=== PATIENT | female | born 1960 | race Hispanic/Latino ===

== ENCOUNTER 2017-07-03 17:14 | Emergency (ER) | payer BC ==
[~2017-07-03] VITALS: Ht 152.4 cm; Wt 64.4 kg
--- OUTSIDE RECORDS SUMMARY | ~2017-07-03 | XMS | Clinical Summary ---
Demographics + + + | Address | [address] | | | [place] [address] | + + + | Home Phone | | + + + | Preferred Language | Unknown | + + + | Marital Status | | + + + | Adventist Affiliation | CAT | + + + [...] | + + + + + | MOOK VERNON | [place] | [place] | | + + + + + Care Team Providers + +------+ + | Care Site Administrator Name | Role | Phone | + +------+ + PP | Unavailable | + +------+ + Source Comments PAIGE is fully live on both [facility] and [facility] InPatient.[facility] Allergies No Known Allergies Current Medications + + +-------+---------+------+------+-------+ | Prescription | Sig. | Disp. | Refills | Star | End | Statu | | | | | | t | Date | s | | | | | | Date | | | + + +-------+---------+------+------+-------+ | OMEPRAZOLE 20 mg | Take 1 Cap by mouth | | | 04/3 | | Activ | | Oral capsule,delayed | two times daily. | | | 0/20 | | e | | release(/EC) | | | | 13 | | | + + +-------+---------+------+------+-------+ | | Take 1 Tab by mouth | | | | | Activ | | diphenhydrAMINE-acet | as needed. | | | | | e | | aminophen (TYLENOL | | | | | | | | PM EXTRA STRENGTH) | | | | | | | | 25-500 mg Oral | | | | | | | | tablet | | | | | | | + + +-------+---------+------+------+-------+ | ZINC ORAL | Take 1 Tab by mouth | | | | | Activ | | | once daily. | | | | | e | + + +-------+---------+------+------+-------+ Active Problems + + + | Problem [...] + +---------+ + | Alcohol Use | Drinks/We | oz/Week | Comments | | | ek | | | + + +---------+ + | Yes | | | rare beer | + + +---------+ + + + + | Sex Assigned at | Date Recorded | | | | + + + | Not on file | | + + + Last Filed Vital Signs + + + + | Vital Sign | Reading | Time Taken | + + + + | Blood Pressure | 132/81 | 11/23/2012 9:00 AM PDT | + + + + | Pulse | 60 | 11/23/2012 9:00 AM PDT | + + + + | Temperature | 36.4 C (97.5 F) | 11/23/2012 8:17 AM PDT | + + + + | Respiratory Rate | 16 | 11/23/2012 9:00 AM PDT | + + + + | Oxygen Saturation | 97% | 11/23/2012 9:00 AM PDT | + + + + | Inhaled Oxygen | - | - | | Concentration | | | + + + + | Weight | 67.1 kg (147 lb 14.9 | 11/23/2012 7:00 AM PDT | | | oz) | | + + + + | Height | 152.4 cm (5') | 11/23/2012 7:00 AM PDT | + + + + | Body Mass Index | 28.89 | 11/23/2012 7:00 AM PDT | + + + + Plan of Treatment + + + + + | Health Maintenance | Due Date | Last Done | Comments | + + + + + | INFLUENZA VACCINE | | | | | (FLU SHOT) | 7 | | | + + + + + Results Not on filefrom Last 3 Months"
--- OUTSIDE RECORDS SUMMARY | ~2017-07-03 | XMS | Clinical Summary ---
Demographics + + + | Address | [address] | | | [place] [address] | + + + | Home Phone [...] Team Providers + +------+ + | Care Refinery Operator Name | Role | Phone | + +------+ + PP | Unavailable | + +------+ + Source Comments PAIGE is fully live on both [facility] and [facility] InPatient.[facility] Allergies No Known Allergies Current Medications + [...]
[~2017-07-03 17:14] MED LIST: CLARITIN10 MG PO; DOXYCYCLINE HY100 MG PO; NORCO 10-325 T1 EACH PO
== END 2017-07-03 21:54 | disposition home or self-care (01) ==
LOC: ED 17:14
DX: Z47.89 Encounter for other orthopedic aftercare (principal); Z91.048 Other nonmedicinal substance allergy status; Z88.8 Allergy status to other drugs, medicaments and biological substances
CPT/HCPCS: 73630; 99283

== ENCOUNTER 2019-05-23 13:00 | Day surgery (SDC) | payer BC, MEDICARE ==
[~2019-05-23] VITALS: Ht 152.4 cm; Wt 62.6 kg
[2019-05-23] MEDS ORDERED: LORAZEPAM2 MG PO (13:30)
--- NOTE | 2019-05-23 15:08 | NUR ---
05/23/19 1508 Thelma Tejeda 1458 PT ARRIVED IN PACU SLEEPY WITH NO C/O'S. ABD SOFT AND PASSING FLATUS. 1500 OXYGEN REMOVED. SATS 98% ON RA.
--- NOTE | 2019-05-24 13:17 | OR ---
[facility] [address] [place], [place] [address] Signed DATE OF OPERATION: 05/23/2019 SURGEON: Milena Burgos MD PREOPERATIVE DIAGNOSES: 1. Left-sided abdominal pain, weight loss, bloating. 2. Previous colonoscopy in 2018, elsewhere, unknown findings. POSTOPERATIVE DIAGNOSES: 1. Sigmoid diverticulosis. 2. Giant villous polypoid lesion of right transverse colon. PROCEDURE PERFORMED: Total colonoscopy to cecum with complex resection including mucosal lift technique, Endo Johnny tattoo application, and hemoclip application of right transverse colonic villous lesion. ANESTHESIA: Intravenous sedation, fentanyl 150 mcg, Versed 8 mg. INDICATION: This 58-year-old woman is well known to me from the past. In recent times, she has had left lower abdominal pain as well as weight loss, generalized bloating, and clinical symptoms of diverticular disease. It is recalled she has undergone hemorrhoidectomy in the past, but has no anorectal problems currently. Her last colonoscopy was in 2018 elsewhere. She cannot remember the place or the findings particularly. She is admitted at this time to undergo colonoscopy to better characterize the problem understanding the risks of bleeding, infection, and perforation. FINDINGS: The prep was excellent. Complete colonoscopy was undertaken to the cecum without question. She had diverticula of the sigmoid. Notably in the right transverse colon, was a very large villous appearing bulky polypoid lesion. Initially it was thought unlikely to be resectable, though with great effort, time, and care, it was excised with morcellation technique using hot snare polypectomy technique, mucosal lift technique, Endo Johnny tattoo dye, and ultimately application of hemoclips to the site. It appears to be completely resected. DESCRIPTION OF PROCEDURE: Electronically Signed By: MILENA BURGOS MD 05/24/19 1317 PATIENT NAME: HUMPHREY COLON OPERATIVE REPORT DATE OF : 62 REPORT #: [id number] PHYSICIAN: MILENA BURGOS MD PCP: ELAINA LYNCH MD REPORT IS CONFIDENTIAL AND NOT TO BE RELEASED WITHOUT AUTHORIZATION [facility] [address] [place], [place] [address] Signed The patient was brought to the endoscopy suite and placed in lateral decubitus position, given intravenous sedation to the point of slurred speech and nystagmus with full cardiopulmonary monitoring. Digital rectal examination was normal. An Olympus video colonoscope was passed in the rectum and manipulated throughout the colon noting diverticula of the sigmoid and left colon. A rather bulky villous appearing polyp was noted at the right transverse colon and was set aside at that time and the scope advanced ultimately to the cecum. Ileocecal valve and appendiceal orifice were normal. Scope was withdrawn documenting the area of location of the polypoid lesion to be the right transverse colon. An endoscopic mucosal lift technique was deemed advisable with possible to allow for complete polypectomy. Injection to the base of the polyp was obscured by the large bulky polyp itself. On that basis, tattoo application was undertaken slightly proximal to the lesion origin itself. A four-quadrant injection was undertaken. Using hot snare polypectomy technique, the lesion was found too bulky to allow for a good complete encirclement with the snare. On that basis, multiple snare polypectomies were undertaken of the lesion carefully excising. At one point, the snare was rather stuck and with various manipulations, finally was worked free. This included the limited use of cutting current and a snare polypectomy. Shards of the bulky villous lesion were sequentially shaved off ultimately leaving a relatively small mucosal area. There was no obvious perforation or anything of that sort. The area in question was triply clipped closing mucosa. Attention was turned towards recovery of the polypoid material. A Berman Net was used and several passes undertaken to fully gather all of the polypoid material. I would say the lesion would measure at least 4 to 5 cm in aggregate. Scope was then withdrawn. Careful inspection to remaining colon showed no sign of other abnormality other than the diverticula. Scope was removed and the patient was taken to recovery room in good condition. CONCLUDING DIAGNOSES: 1. Very large right transverse colonic villous bulky lesion. Await Pathology. 2. Diverticular changes, sigmoid. PLAN: Needs repeat colonoscopy in 6 to 12 months provided, there is no malignancy identified in the lesion excised. There is an extended right colectomy would likely be appropriate. Electronically Signed By: MILENA BURGOS MD 05/24/19 1317 PATIENT NAME: HUMPHREY COLON OPERATIVE REPORT DATE OF : 62 REPORT #: [id number] PHYSICIAN: MILENA BURGOS MD PCP: ELAINA LYNCH MD REPORT IS CONFIDENTIAL AND NOT TO BE RELEASED WITHOUT AUTHORIZATION [facility] [address] [place] [address] Signed Milena Burgos MD JM/MODL /[id number] cc: Elaina Lynch MD Copies: ELAINA LYNCH MD ~ Electronically Signed By: MILENA BURGOS MD 05/24/19 1317 PATIENT NAME: MALVIN HUMPHREY VERNON OPERATIVE REPORT DATE OF : 62 REPORT #: [id number] PHYSICIAN: MILENA BURGOS MD PCP: ELAINA LYNCH MD REPORT IS CONFIDENTIAL AND NOT TO BE RELEASED WITHOUT AUTHORIZATION
--- NOTE | 2019-05-24 16:00 | PATH ---
[facility] [address] [place], [place] [address] Signed SPECIMEN(S): A ASCENDING, TRANSVERSE POLYPS SPECIMEN SOURCE: A. ASCENDING, TRANSVERSE POLYPS CLINICAL HISTORY: LLQ abdominal pain, constipation. Postop DX: Giant polyp right transverse colon, diverticulosis. MICROSCOPIC DESCRIPTION: Histologic sections of all submitted blocks are examined by light microscopy. These findings, together with the gross examination, support the pathologic diagnosis. 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 - Negative for invasive carcinoma. - See Comment. COMMENT: As part of [facility] Quality Improvement Program, this case was reviewed by another member of our pathology staff. NAL:AMB:emb:C2NR GROSS DESCRIPTION: The specimen, labeled "RV, ascending and transverse colon polyps," is received in formalin and consists of two cornejo-pink bosselated and polypoid nodules measuring 1.7 cm and 1.9 x 1.7 x 1.4 cm. Separate in the container there is a 2.7 x 2.3 x 0.6 cm aggregate of cornejo-pink polypoid nodules. The two large nodules are inked and sectioned. Specimen is entirely submitted in cassettes (A1-A3). AM (under the direct supervision of a pathologist) The Gross Description was prepared using a voice recognition system. The report was reviewed for accuracy; however, sound-alike word errors, addition and/or deletions may occur. If there is any question about this report, please contact Client Services. PERFORMING LABORATORY: The technical component was performed by [facility], [address] [place] [address] (Studio Engineer: Leidy Vázquez MD; CLIA# [id number]). Professional interpretation was performed by PATIENT NAME: HUMPHREY COLON PATHOLOGY DATE OF : 62 REPORT #: [id number] PHYSICIAN: [facility] PCP: ELAINA WALL MD REPORT IS CONFIDENTIAL AND NOT TO BE RELEASED WITHOUT AUTHORIZATION [facility] [address] [place], [place] [address] Signed [facility], [facility], [address] [facility] [address], [place] [address] (Studio Engineer: Richard León MD; CLIA# [id number]). Diagnostician: Alessia Davis MD Pathologist Electronically Signed 05/24/2019 Copies: ~ PATIENT NAME: HUMPHREY COLON PATHOLOGY DATE OF : 62 REPORT #: [id number] PHYSICIAN: [facility] PCP: ELAINA WALL MD REPORT IS CONFIDENTIAL AND NOT TO BE RELEASED WITHOUT AUTHORIZATION
== END 2019-05-23 15:53 | disposition home or self-care (01) ==
LOC: OPS 13:00 → DS 14:00 → OPS 14:00
PROVIDERS: Surgery
PROC: 3E0H8GC Introduction of Other Therapeutic Substance into Lower GI, Via Natural or Artificial Opening Endoscopic (ICD-10-PCS; 2019-05-23)
PROC: 0DBL8ZZ Excision of Transverse Colon, Via Natural or Artificial Opening Endoscopic (ICD-10-PCS; principal; 2019-05-23 14:00)
DX: D12.3 Benign neoplasm of transverse colon (principal); K57.30 Diverticulosis of large intestine without perforation or abscess without bleeding; K21.9 Gastro-esophageal reflux disease without esophagitis; Z79.899 Other long term (current) drug therapy; Z98.890 Other specified postprocedural states; Z86.59 Personal history of other mental and behavioral disorders
CPT/HCPCS: 99153; G0500; J2250; J3010; J7121

== ENCOUNTER 2019-10-27 11:54 | Emergency (ER) | payer BC, MEDICARE ==
[~2019-10-27] VITALS: Ht 152.4 cm; Wt 62.6 kg
--- OUTSIDE RECORDS SUMMARY | ~2019-10-27 | XMS | Encounter Summary ---
Demographics + + + | Address | [address] | | | [place] [address] | + + + | Home Phone | | + + + | Preferred Language | Unknown | + + + | Marital Status | | + + + | Confucianist Affiliation | CAT | + + + | Race | White | + + + | Ethnic Group | or | + + + Author + + + | Author | [facility] | + + + | Organization | [facility] | + + + | Address | Unknown | + + + | Phone | Unavailable | + + + Support + + + + + | Name | Relationship | Address | Phone | + + + + + | Golden Malone | [place] | [place] | | + + + + + Care Team Providers + +------+ + | Care Inspector And Unloader Name | Role | Phone | + +------+ + | George Lynch MD | PCP | | + +------+ + Encounter Details +--------+ + + + + | Date | Type | Department | Care Team | Description | +--------+ + + + + | 11/22/ | Orders Only | Preoperative | [facility] | | | 2012 | | [facility] at | J, SENIOR C [employer] DEVELOPER | | | | | [facility] | | | | | | [address] | | | | [address] | | | | | | Mailcode: [id number] | | | | | | [address] | | | | | | [address] [place], [place] | | | | | | [address] | | | | | | [phone] | | | +--------+ + + + + Social History + +-------+ +--------+------+ | Tobacco Use | Types | Packs/Day | Years | Date | | | | | Used | | + +-------+ +--------+------+ | Never Smoker | | | | | + +-------+ +--------+------+ + +---+---+---+ | Smokeless Tobacco: | | | | | Never Used | | | | + +---+---+---+ + + +---------+ + | Alcohol Use | Drinks/Week | oz/Week | Comments | + + +---------+ + | Yes | | | rare beer | + + +---------+ + + + + | Sex Assigned at | Date Recorded | | | | + + + | Not on file | | + + + + + + + | Job Start Date | Occupation | Industry | + + + + | Not on file | Not on file | Not on file | + + + + + + + + | Travel History | Travel Start | Travel End | + + + + + + | No recent travel history available. | + + documented as of this encounter Plan of Treatment +--------+---------+ + + + | Date | Type | Specialty | Care Team | Description | +--------+---------+ + + + | 12/29/ | Office | Ophthalmology | Martha Savage MD | | | 2019 | Visit | | [address] | | | | | | [place], | | | | | | [place] [address] | | | | | | [phone] | | | | | | | | +--------+---------+ + + + documented as of this encounter Visit Diagnoses Not on filedocumented in this encounter"
--- OUTSIDE RECORDS SUMMARY | ~2019-10-27 | XMS | Encounter Summary ---
Demographics + + + | Address | [address] [place] | | | [place] [address] | + + + | Home Phone | | + + + | Preferred Language | Unknown | + + + | Marital Status | | + + + | Caodaism Affiliation | 1041 | + + + | Race | Unknown | + + + | Ethnic Group | Unknown | + + + Author + + + | Author | [facility] | | | and [place] | + + + | Organization | [facility] | | | and [place] | + + + | Address | Unknown | + + + | Phone | Unavailable | + + + Support + + +---------+ + | Name | Relationship | Address | Phone | + + +---------+ + | Golden Malone | [place] | Unknown | | + + +---------+ + Care Team Providers + +------+ + | Care Elementary Spanish Teacher Name | Role | Phone | + +------+ + | George Lynch | PCP | | | MD | | | + +------+ + Reason for Visit + +--------+ + | Reason | Onset | Comments | | | Date | | + +--------+ + | Medication Reaction | 01/08/ | | | | 2015 | | + +--------+ + Encounter Details +--------+ + + + + | Date | Type | Department | Care Team | Description | +--------+ + + + + | 01/08/ | Telephone | [facility] | Denis Cee | Medication Reaction | | 2015 | | [address]RY [address] | | | | [address] [place], [place] | | | | | [place], [place] | [address] | | | | | [address] | | | | | | [phone] | | | +--------+ + + + + Social History + +-------+ +--------+------+ | Tobacco Use | Types | Packs/Day | Years | Date | | | | | Used | | + +-------+ +--------+------+ | Never Smoker | | | | | + +-------+ +--------+------+ + + +---------+ + | Alcohol Use | Drinks/Week | oz/Week | Comments | + + +---------+ + | Yes | 0 Standard drinks | 0.0 | OCCASIONALLY | | | or equivalent | | | + + +---------+ + + + + | Sex Assigned at | Date Recorded | | | | + + + | Not on file | | + + + documented as of this encounter Miscellaneous Notes Telephone Encounter - Hollie Gibson CMA - 01/10/2016 11:27 AM PDTPatient informed of Benjamín Cee's message. She reports that she will get in touch with her PCP and have lab wo rk done. She decided to discontinue taking the Cymbalta as of yesterday until she can find o ut for certain that the hair loss is not related. elephone Encounter - Denis Cee MD - 01/09/2016 3:1 1 PM PDTI did a little research and hair falling out is not a significant side effect of Cym kalie and the cases that were reported were after weeks of use. More commonly thinning hair can be a side effect of low thyroid or other issues. I recommend she discuss this further with her PCP when she talks to him about other labs. She can decide whether or not she want s to continue taking the medication at this time. elephone Ricarda Puente CMA - 01/09/2016 12:00 PM PDTCalled patient to discuss medication reaction and image results. Patient states since taking the Cymbalta her body pain has reduced but she has noticed she is losing an abnormal amount of hair. Patient also complains of being tired all the time and not wanting to leave her home. Patient continues to have headaches and is wanting to know if there are any other medicatio n options. She has an EMG scheduled for 01/13 and a follow up with PCP to discuss labs on 01/24. Please advise. elephone Ricarda Vaughn CMA - 01/09/2016 11:58 AM PDT Result Note MRI of the cervical spine was reviewed and looks great actually. There are no signific ant disc protrusions, no evidence of nerve root impingement or central canal stenosis at any level. It doesn't appear that her symptoms are coming from any structural abnormality or ne urologic compromise stemming from the neck and no injections or surgery are warranted. I still feel that nearly all of her symptoms are due to fibromyalgia but I think it woul d be warranted to rule out other possibilities just so we don't miss anything. I recommend that she talk with her PCP about a rheumatologic work-up with at least CRP, ESR and CPK if not already done. NICOLAS and Rheumatoid factor might also be worth checking. I don't have a lot of her lab data and don't want to repeat studies unnecessarily if they have already bee n done. I had also previously recommended EMG testing of at least the right upper extremity and if she wants to do that I can refer her to Dr. Shukla. elephone Encounter - W Kath tejeda - 01/09/2016 11:48 AM PDTPatient reports that she feels like DULoxetine (CYMBA LTA) [address] capsule is making her hair fall out. She would like a call back to discuss fur ther. documented in this enc ounter Plan of Treatment Not on filedocumented as of this encounter Visit Diagnoses Not on filedocumented in this encounter"
--- OUTSIDE RECORDS SUMMARY | ~2019-10-27 | XMS | Encounter Summary ---
Demographics + + + | Address | [address] | | | [place] [address] | + + + | Home Phone | | + + + | Preferred Language | Unknown | + + + | Marital Status | | + + + | Church Affiliation | 1041 | + + + | Race | Unknown | + + + | Ethnic Group | Unknown | + + + Author + + + | Author | [facility] | | | and [place] | + + + | Organization | [facility] | | | and [place] | [...] Team Providers + +------+ + | Care Carbon Dioxide Operator Name | Role | Phone | + +------+ + | George Lynch | PCP | | | MD | | | + +------+ + Reason for Visit +--------+--------+ + | Reason | Onset | Comments | | | Date | | +--------+--------+ + | Other | 01/15/ | pain and fever | | | 2015 | | +--------+--------+ + Encounter Details +--------+ + + + + | Date | Type | Department | Care Team | Description | +--------+ + + + + | 01/15/ | Telephone | [facility] | George Shukla, | Other (pain and | | 2015 | | [address]SIATRY [address] | fever) | | | | [address] | [address] | | | | | [facility] [facility] [place] | [place] [address] | | | | | [address] | [phone] | | | | | [phone] | | | +--------+ + + + [...] Telephone Encounter - Hollie Gibson CMA - 01/16/2016 4:10 PM PDTLeft voicemail echoecho e with Dr. Beltrán;;'s message for this patient. She was informed that if she has any further questions she is welcome to contact me.Electronically signed by Hollie Gibson CMA at 4:13 PM PDTTelephone Encounter - George Shukla MD - 01/16/2016 3:01 PM PDTI only did NCS so there is no way the fever is related to the study. And NCS has been done f or 60+ years and is safe, with no risk for nerve damage. Please call patient and advise.Amy ctronically signed by George Shukla MD at 01/16/2016 3:03 PM PDTTelephone Encounter - Hollie Gibson CMA - 01/16/2016 11:27 AM PDTDr. Shukla- please advise. I think it like ly just a coincidence but wanted to get your opinion. elephone Encounter - Elma Quinones - 01/16/2016 9:23 A M PDTPatient called stating that she's been having a lot of right arm pain and high fevers. Patient would like to know if her fever and arm pain is related to her EMG/NCS or was caused by the procedure. Please advise documented in this encounter Plan of Treatment Not on filedocumented as of this encounter Visit Diagnoses Not on filedocumented in this encounter"
--- OUTSIDE RECORDS SUMMARY | ~2019-10-27 | XMS | Encounter Summary ---
Demographics + + + | Address | [address] | | | [place] [address] | + + + | Home Phone | | + + + | Preferred Language | Unknown | + + + | Marital Status | | + + + | Faith Affiliation | CAT | + + + | Race | White | + + + | Ethnic Group | or | + + + Author + + + | Organization | Unknown | + + + | Address | Unknown | + + + | Phone | Unavailable | + + + Support + + + + + | Name | Relationship | Address | Phone | + + + + + | Golden Malone | [place] | [place] | | + + + + + Care Team Providers + +------+ + | Care Hat And Cap Drying Room Attendant Name | Role | Phone | + +------+ + PCP | Unavailable | + +------+ + Encounter Details +--------+ + + + + | Date | Type | Department | Care Team | Description | +--------+ + + + + | 02/20/ | Office | | Note, Outpatient | Progress Note | | 2002 | Visit-Trans | | Clinic | | | | cribed | | | | +--------+ + + + + Social History + +-------+ +--------+------+ | Tobacco Use | Types | Packs/Day | Years | Date | | | | | Used | | + +-------+ +--------+------+ | Never Assessed | | | | | + +-------+ +--------+------+ + + + | Sex Assigned at [...] + + documented as of this encounter Progress Notes Interface, Video Game Technician In - 10/16/2005 3:01 AM PDTClinic Date: 02/20/2003 Clinic: Subjective: Mrs. Malone is a 42-year-old woman who has a long history of repeated infections in the right ear since childhood. She was noted to have perforated tympanic membrane and about 10 years ago had repair. Postoperatively, she did have a hole in the eardrum which was treated mainly with drops in attempts to close the perforation. Over the course of past year, she has noted increased discharge. She eventually saw Dr. Camarillo who treated with ear drops but had burning insider her ear and down her throat including going out into external pinna which was felt to be allergic reaction. She had several antibiotic drops, the names of which she does not know which all gave the same sort of response. She has noted that the drainage on some occasions has had some odor and has been slight intermittent. She has had no dizziness but some slight unsteadiness. No vertigo. Tinnitus has been a problem at night, particularly if she lies on the right side, and she has some pain and itching in that ear. Past History: Positive for repeated infections as a child, but she denies head injury. She has had some noise exposure at work of 90 to 100 decibels, but she wears earplugs and/or earmuff. She has no family history of ear disease. Her past medical history is positive for stomach ulcer which she has had off and on for 3 years. She has also had some mild left chest pain and pulmonary pain. She has had no history of cardiac problems. No high blood pressure. No cancer, diabetes, or hepatitis. She denies any pulmonary problems or other stomach disorder other than mentioned. No urologic or neurologic disease. Medications: Aspirin 2 as necessary, perhaps once a day. Disease in the Family: Kidney and liver disease with high blood pressure and diabetes. Previous Surgeries: Appendectomy in 1983 and tympanoplasty in 1992. Allergies: EARDROPS, MULTIPLE. Food Allergies: None. Pollen Allergies: None. Habits: She lives with her family. She currently is not working. She takes 4 to 6 aspirin a week. She does not smoke, approximately 2 beers a week, coffee 1 cup every other day. Physical Examination General: A delightful woman in no acute distress. HEENT: Ears: The right tympanic membrane has a granulation area on the posterior tympanic portion of the drum. Remainder of the drum is mobile, and there is no perforation which is noted. This granulation area is approximately 1 to 2 mm. The left ear appears to be normal. Nose is clear without obstruction in either side. Mouth: Teeth are in excellent repair although she is missing molars on both the right and the left, particularly on the right. There is good moisture. Palate and tongue movement is normal. Neck: No unusual adenopathy. Thyroid in not enlarged. Musculoskeletal: She has marked improvement of her joint tenderness with only her jaw on the right side and with pressure over the area. This is also noted by intraoral palpation of spasm of the pterygoid musculature on the right side. Neruologic: Cranial nerves 2 through 12 are intact and normal. The area of the granulation tissue was examined under the microscope and aspirated. Diagnostic Studies: Her audiogram today shows a very mild hearing loss with an SRT of 10 on that side. Impression: It is my present thought that she does have a granulation tissue on the drum which formed the little polypoid tissue. She may have actually had a slit in the tympanic membrane which does not appear to be present now. She has 100% discrimination at 15 decibels SRT. I have started her on boric acid powder which she will use once a week for the next 6 weeks. She will be rechecked in 2 months. I did not plan to use drops on her. I do not feel that she is a necessary surgical candidate at this particular time. Oracio Carson M.D. [facility] / [id number] / [id number] / [id number] / Tdocumented in this encounter Plan of Treatment +--------+---------+ + + + | Date | Type | Specialty | Care Team | Description | +--------+---------+ + + + | 12/29/ | Office | Ophthalmology | Martha Savage MD | | | 2019 | Visit | | [address] | | | | | | [place], | | | | | | [place] [address] | | | | | | [phone] | | | | | | | | +--------+---------+ + + + documented as of this encounter Visit Diagnoses Not on filedocumented in this encounter"
--- OUTSIDE RECORDS SUMMARY | ~2019-10-27 | XMS | Encounter Summary ---
Demographics + + + | Address | [address] | | | [place] [address] | + + + | Home Phone | | + + + | Preferred Language | Unknown | + + + | Marital Status | | + + + | Lutheran Affiliation | 1041 | + + + | Race | Unknown | + + + | Ethnic Group | Unknown | + + + Author + + + | Author | [facility] | | | and [place] | + + + | Organization | [facility] | | | and [place]ana | [...] Team Providers + +------+ + | Care Switchboard Clerk Name | Role | Phone | + +------+ + | George Lynch | PCP | | | MD | | | + +------+ + Encounter Details +--------+ + + + + | Date | Type | Department | Care Team | Description | +--------+ + + + + | 09/25/ | Abstract | [facility] | Ricarda Roberts CMA | | | 2015 | | PHYSIATRY [address] | | | | | | [address] | | | | | | [place] | | | | | | [address] | | | | | | [phone] | | | +--------+ + + + [...] documented as of this encounter Progress Notes Ricarda [place], FOOD ASSEMBLER KITCHEN - 09/26/2015 8:16 AM PDTREVIEW OF SYSTEMS GENERALLY: No fever, + night sweats, no anemia, + fatigue, no recent profound weight ferrer ges. EYES: + eye problems,+ use of corrective lenses, no eye injury, no double vision, no blind ness. EARS, NOSE, AND THROAT: No changes in taste or smell, + hearing difficulty, + ringing in t he ears,+ ear drainage, no dizziness, no voice changes, no difficulty swallowing, no signifi cant snoring, no sleep apnea, + sinus problems, + major dental work. NEUROLOGICALLY: Please see the review of systems discussed above in the history of present illness. In addition, the patient has + numbness/pain of arms, + numbness/pain of legs, + a wake with numbness/pain, +weakness, + muscle aching, + coordination difficulty, + change in walk, + back injury, + pain in neck, + pain in back, + headaches, + memory loss, + confusio n. PSYCHIATRIC: + depression, + sleep disorders, + anxiety, no bipolar disorder, no psychoti c episodes. CARDIOVASCULAR: No heart attacks, no heart murmur, no heart fluttering, no chest pain, no ankle swelling. LUNG DISEASE: No shortness of breath, no cough, no tuberculosis, no bloody cough, no asth ma, no emphysema/COPD. GASTROINTESTINAL: No bowel disease, no nausea or vomiting, no rectal bleeding, no constipa tion, no stool incontinence, no liver disease, no gallbladder disease, no abdominal pain, no ulcers. KIDNEY DISEASE: No urinary frequency, no painful or difficult urination, no incontinence. ENDOCRINE: No diabetes, no thyroid disease, no osteopenia or osteoporosis, no breast drain age. SKIN: No breast lumps, no skin changes, no rashes, no itches. HEMATOLOGIC/LYMPHATIC: No enlarged lymph nodes, no easy or unusual bleeding, no personal h istory of cancer. RHEUMATOLOGIC: No joint arthritis, no rheumatoid arthritis. documented in this enco unter Plan of Treatment Not on filedocumented as of this encounter Visit Diagnoses Not on filedocumented in this encounter"
--- OUTSIDE RECORDS SUMMARY | ~2019-10-27 | XMS | Encounter Summary ---
Demographics + + + | Address | [address] [place] [address] | | | [place] [address] | + + + | Home Phone | | + + + | Preferred Language | Unknown | + + + | Marital Status | | + + + | Taoist Affiliation | 1041 | + + + | Race | Unknown | + + + | Ethnic Group | Unknown | + + + Author + + + | Author | [facility] | | | and [place] | + + + | Organization | [facility] | | | and Geovannyana [...] Team Providers + +------+ + | Care Screen Printing Machine Operator Name | Role | Phone | + +------+ + | George Lynch | PCP | | | MD | | | + +------+ + Encounter Details +--------+ + + + + | Date | Type | Department | Care Team | Description | +--------+ + + + + | 11/12/ | [facility] | [facility] | Bro[place], | Neck pain | | 2016 | Encounter | MED CTR XRAY [address] | [address] | | | | | [address] | [facility] [address] | | | | | [place] [address] | [place] [address] | | | | | [phone] | [phone] | | | | | | | | +--------+ + + [...] + + documented as of this encounter Medications at Time of Discharge + + + +---------+ + + | Medication | Sig | Dispensed | Refills | Start | End Date | | | | | | Date | | + + + +---------+ + + | acetaminophen | Take 325 mg by mouth | | 0 | 01/16/20 | | | (TYLENOL) 325 mg | as needed. | | | 12 | | | tablet | | | | | | + + + +---------+ + + | tolnaftate | Apply topically 2 | | 0 | | | | (TINACTIN) 1% cream | times daily. | | | | | + + + +---------+ + + | aspirin 325 mg | Take 325 mg by mouth | | 0 | 01/16/20 | | | tablet | as needed. | | | 12 | 8 | + + + +---------+ + + | gabapentin | 1 tab PO nightly x 5 | 120 | 2 | 09/26/19 | | | (NEURONTIN) 300 mg | days, then increase | capsule | | 16 | 6 | | capsule | to 1 tab PO BID x 5 | | | | | | | days. If continue | | | | | | | to tolerate well, | | | | | | | increase to 1 tab PO | | | | | | | TID. | | | | | + + + +---------+ + + documented as of this encounter Plan of Treatment Not on filedocumented as of this encounter Procedures + +--------+ + + + | Procedure Name | Priori | Date/Time | Associated Diagnosis | Comments | | | ty | | | | + +--------+ + + + | XR CERVICAL SPINE 4 | Routin | 11/13/2015 | Neck pain | Results for this | | OR 5 VWS | e | 11:59 AM | | procedure are in the | | | | PDT | | results section. | + +--------+ + + + documented in this encounter Results XR Cervical Spine 4 or 5 Vws (11/13/2015 11:59 AM PDT) + + | Specimen | + + | | + + + + + | Narrative | Performed At | + + + | CERVICAL SPINE: 11/13/2015 11:59 AM CLINICAL HISTORY: neck pain | [facility] | | COMPARISON: None FINDINGS: Upright AP, lateral and lateral | [facility] | | flexion-extension views of the cervical spine. Cervical spine is | [facility] | | imaged to C7-T1. Vertebral body heights are normally maintained. Disc | - IMAGING | | interspaces appear normal. Small focus of soft tissue calcification | | | is seen anterior to the C6-C7 disc interspace. Alignment is normal | | | at C1-C2. Facet joints are normally aligned. Overall normal sagittal | | | alignment. No loss of alignment in flexion or extension. No | | | adjacent soft tissue abnormalities. IMPRESSION - Small focus of | | | soft tissue calcification anterior to the C6-C7 disc interspace which | | | may indicate early disc disease. Otherwise normal radiographic | | | appearance of the cervical spine. No radiographic demonstration of | | | instability. Dictated and Signed by: Donovan Martinez MD | | | Electronically signed: 11/13/2015 1:54 PM | | + + + + + | Procedure Note | + + | Ricki Alford Results In - 11/13/2015 1:57 PM PDT CERVICAL SPINE: 11/13/2015 11:59 AM | | | | CLINICAL HISTORY: neck pain | | | | COMPARISON: None | | | | FINDINGS: Upright AP, lateral and lateral flexion-extension views of the | | cervical spine. | | | | Cervical spine is imaged to C7-T1. Vertebral body heights are normally | | maintained. Disc interspaces appear normal. Small focus of soft tissue | | calcification is seen anterior to the C6-C7 disc interspace. | | | | Alignment is normal at C1-C2. Facet joints are normally aligned. Overall normal | | sagittal alignment. No loss of alignment in flexion or extension. | | | | No adjacent soft tissue abnormalities. | | | | IMPRESSION - Small focus of soft tissue calcification anterior to the C6-C7 disc | | interspace which may indicate early disc disease. Otherwise normal radiographic | | appearance of the cervical spine. No radiographic demonstration of instability. | | | | Dictated and Signed by: Donovan Martinez MD | | Electronically signed: 11/13/2015 1:54 PM | + + + + + + + | Performing | Address | City/State/Zipcode | Phone Number | | Organization | | | | + + + + + | [address] | [address] | [place] | [phone] | | [facility] | | [address] | | | - IMAGING | | | | + + + + + documented in this encounter Visit Diagnoses + + | Diagnosis | + + | Neck pain Cervicalgia | + + documented in this encounter"
--- OUTSIDE RECORDS SUMMARY | ~2019-10-27 | XMS | Clinical Summary ---
Demographics + + + | Address | [address] | | | [place] [address] | + + + | Home Phone | | + + + | Preferred Language | Unknown | + + + | Marital Status | | + + + | Nondenominational Affiliation | CAT | + + + | Race | White | + + + | Ethnic Group | or | + + + Author + + + | Author | [facility] | + + + | Organization | [facility] | + + + | Address | Unknown | + + + | Phone | Unavailable | + + + Support + + + + + | Name | Relationship | Address | Phone | + + + + + | Golden Malone | [place] | [place] | | + + + + + Care Team Providers + +------+ + | Care Research Nutritionist Name | Role | Phone | + +------+ + | George Lynch MD | PCP | | + +------+ + Source Comments [facility].Replaced By [facility] Allergies + + + + + + | Active Allergy | Reactions | Severity | Noted | Comments | | | | | Date | | + + + + + + | Aloe Vera | Pruritus, Rash | Medium | 02/08/20 | | | | | | 19 | | + + + + + + | Latex | Unknown, Rash | Medium | 09/26/19 | | | | | | 16 | | + + + + + + | Penicillins | Rash | Medium | 02/08/20 | | | | | | 19 | | + + + + + + Medications + + + +---------+------+------+-------+ | Medication | Sig | Dispensed | Refills | Star | End | Statu | | | | | | t | Date | s | | | | | | Date | | | + + + +---------+------+------+-------+ | OMEPRAZOLE 20 mg | Take 1 Cap by mouth | | 0 | 04/3 | | Activ | | Oral capsule,delayed | two times daily. | | | 0/20 | | e | | release(DR/EC) | | | | 13 | | | + + + +---------+------+------+-------+ | | Take 1 Tab by mouth | | 0 | | | Activ | | diphenhydrAMINE-acet | as needed. | | | | | e | | aminophen (TYLENOL | | | | | | | | PM EXTRA STRENGTH) | | | | | | | | 25-500 mg Oral | | | | | | | | tablet | | | | | | | + + + +---------+------+------+-------+ | ZINC ORAL | Take 1 Tab by mouth | | 0 | | | Activ | | | once daily. | | | | | e | + + + +---------+------+------+-------+ | cycloSPORINE 0.05 | Instill 1 drop into | 60 each | 11 | 02/2 | | Activ | | % ophthalmic (eye) | both eyes two times | | | 6/20 | | e | | dropperette | daily. | | | 20 | | | + + + +---------+------+------+-------+ Active Problems + + + | Problem | Noted Date | + + + | GERD (gastroesophageal reflux disease) | | + + + Resolved Problems + + + + | Problem | Noted | Resolved | | | Date | Date | + + + + | Cholesteatoma of middle ear | 08/05/19 | | | | 13 | 3 | + + + + Family History + + +------+ + | Medical History | Relation | Name | Comments | + + +------+ + | Diabetes | Father | | | + + +------+ + | Hypertension | Mother | | | + + +------+ + + +------+--------+ + | Relation | Name | Status | Comments | + +------+--------+ + | Father | | | | + +------+--------+ + | Mother | | | | + +------+--------+ + Social History + +-------+ +--------+------+ | [...] recent travel history available. | + + Last Filed Vital Signs + + + + + | Vital Sign | Reading | Time Taken | Comments | + + + + + | Blood Pressure | 132/81 | 11/23/2012 9:00 AM | | | | | PDT | | + + + + + | Pulse | 60 | 11/23/2012 9:00 AM | | | | | PDT | | + + + + + | Temperature | 36.4 C (97.5 F) | 11/23/2012 8:17 AM | | | | | PDT | | + + + + + | Respiratory Rate | 16 | 11/23/2012 9:00 AM | | | | | PDT | | + + + + + | Oxygen Saturation | 97% | 11/23/2012 9:00 AM | | | | | PDT | | + + + + + | Inhaled Oxygen | - | - | | | Concentration | | | | + + + + + | Weight | 67.1 kg (147 lb 14.9 | 11/23/2012 7:00 AM | | | | oz) | PDT | | + + + + + | Height | 152.4 cm (5') | 11/23/2012 7:00 AM | | | | | PDT | | + + + + + | Body Mass Index | 28.89 | 11/23/2012 7:00 AM | | | | | PDT | | + + + + + Plan of Treatment +--------+---------+ + + + | Date | Type | Specialty | Care Team | Description | +--------+---------+ + + + | 12/29/ | Office | Ophthalmology | Martha Savage MD | | | 2020 | Visit | | [address] | | | | | | [place], | | | | | | [place] [address] | | | | | | [phone] | | | | | | | | +--------+---------+ + + + + + + + + | Health Maintenance | Due Date | Last Done | Comments | + + + + + | Influenza (Flu) | | | | | vaccination (#1) | 9 | | | + + + + + | Pneumococcal | Aged Out | | No longer eligible | | vaccination | | | based on patient's | | | | | age to complete this | | | | | topic | + + + + + Results Not on filefrom Last 3 Months Insurance + +--------+ +--------+ + +--------+ | Payer | Benefi | Subscriber | Effect | Phone | Address | Type | | | t Plan | ID | yara | | | | | | / | | Dates | | | | | | Group | | | | | | + +--------+ +--------+ + +--------+ | BLUE CROSS BLUE | BCBS | [phone] | Effect | [phone] | [address] | PPO | | SHIELD | OUT OF | [id number] | y[place] | [address] | [address] | | | | [place] | | for | | [place], | | | | | | all | | [place] | | | | | | dates | | [address] | | + +--------+ +--------+ + +--------+ | MEDICARE | MEDICA | xxxxxxxxxxx | | [phone] | [address] | Med[address] | | | RE A & | | [phone] | | | [address] | | [address] | | [place] | | | | | | | | [phone] | | + +--------+ +--------+ + +--------+ + +--------+ +--------+ + + | Guarantor Name | Accoun | Relation to | Date | Phone | Billing Address | | | t Type | Patient | of | | | | | | | | | | + +--------+ +--------+ + + | Maritza Malone V | Person | Self [birth year] | [address] | | | al/Fam | | 1960 | [phone] | [place] | | | [place] | | | 2 (Home) | [address] | + +--------+ +--------+ + + Advance Directives + + + + + | Code Status | Date | Date | Comments | | | Activated | Inactivated | | + + + + + | Full Code | 11/23/2012 | 11/23/2012 | | | | 7:03 AM | 4:46 PM | | + + + + +"
--- OUTSIDE RECORDS SUMMARY | ~2019-10-27 | XMS | Encounter Summary ---
Demographics + + + | Address | [address] | | | [place] [address] | + + + | Home Phone | | + + + | Preferred Language | Unknown | + + + | Marital Status | | + + + | Episcopalian Affiliation | 1041 | + + + | Race | Unknown | + + + | Ethnic Group | Unknown | + + + Author + + + | Author | [facility] | | | and Geovannyana | + + + | Organization | [facility] | | | and Geovannyana [...] Team Providers + +------+ + | Care Shopping Inspector Name | Role | Phone | + +------+ + | George Lynch | PCP | | | MD | | | + +------+ + Encounter Details +--------+ + + + + | Date | Type | Department | Care Team | Description | +--------+ + + + + | 02/02/ | [facility] | [facility] | Vernon Mar PA-C | Cervical | | 2019 | Encounter | MED CTR XRAY [address] | [address] | radiculopathy; | | | | [place] | [address] [place], [place] | Chronic neck pain; | | | | [place] [address] | [id number] | Arm pain, right; | | | | [phone] | | Chronic pain of | | | | | | right hand; S/P | | | | | | carpal tunnel | | | | | | release | +--------+ + + + + Social [...] + + +---------+ + + | aspirin 81 MG | Take 81 mg by mouth | | 0 | | | | tablet | Daily. | | | | | + + + +---------+ + + | LORazepam (ATIVAN) | Take 0.5 mg by mouth | | 0 | | | | 0.5 mg tablet | every 6 hours as | | | | | | | needed for Anxiety. | | | | | + + + +---------+ + + | meloxicam (MOBIC) | Take 15 mg by mouth | | 0 | | | | 15 mg tablet | Daily. | | | | | + + [...] XR CERVICAL SPINE 4 | Routin | 02/02/2019 | Cervical | Results for this | | OR 5 VWS | e | 1:11 PM | radiculopathy | procedure are in the | | | | PDT | Chronic neck pain | results section. | | | | | Arm pain, right | | | | | | Chronic pain of | | | | | | right hand S/P | | | | | | carpal tunnel | | | | | | release | | + +--------+ + + + documented in this encounter Results XR Cervical Spine 4 or 5 Vws (02/02/2019 1:11 PM PDT) + + | Specimen | + + | | + + + + + | Narrative | Performed At | + + + | XR CERVICAL SPINE 4 OR 5 VWS 02/02/2019 12:56 PM HISTORY: NECK | [facility] | | PAIN THAT RADIATES TO THE RIGHT ARM AND HAND. POSITIVE PHALEN'S TEST, | | | TINEL'S TEST, SPURLING'S TEST POSITIVE TO THE RIGHT. COMPARISON: | | | Multiple priors. FINDINGS: Visualized skull base and facial | | | structures demonstrate no acute findings. Prevertebral soft tissues | | | are normal. There is mild spondylosis. No instability is seen | | | during flexion and extension. Bone mineralization is normal. The dens | | | is normal. Vertebral body height are preserved with no evidence for | | | compression fractures. Disc height are maintained. Facet joints are | | | intact. Soft tissue structures are unremarkable. Visualized upper | | | chest demonstrates no acute findings. IMPRESSION - Mild | | | spondylosis, no instability. Dictated and Signed by: Amari You, | | | Electronically signed: 02/02/2019 3:05 PM | | + + + + + | Procedure Note | + + | Prashanth, Rad Results In - 02/02/2019 3:08 PM PDT XR CERVICAL SPINE 4 OR 5 VWS 02/02/2019 | | 12:56 PMHISTORY: NECK PAIN THAT RADIATES TO THE RIGHT ARM AND HAND. POSITIVE | | PHALEN'STEST, TINEL'S TEST, SPURLING'S TEST POSITIVE TO THE RIGHT.COMPARISON: Multiple | | priors.FINDINGS:Visualized skull base and facial structures demonstrate no acute | | findings.Prevertebral soft tissues are normal.There is mild spondylosis. No instability | | is seen during flexion and extension.Bone mineralization is normal. The dens is normal. | | Vertebral body height arepreserved with no evidence for compression fractures. Disc | | height aremaintained. Facet joints are intact. Soft tissue structures are | | unremarkable.Visualized upper chest demonstrates no acute findings. IMPRESSION -Mild | | spondylosis, no instability.Dictated and Signed by: Amari You MD Electronically | | signed: 02/02/2019 3:05 PM | |There is mild spondylosis. No instability is seen during flexion and extension. | |Bone mineralization is normal. The dens is normal. Vertebral body height are | |preserved with no evidence for compression fractures. Disc height are | |maintained. Facet joints are intact. Soft tissue structures are unremarkable. | |Visualized upper chest demonstrates no acute findings. | | | |IMPRESSION - | |Mild spondylosis, no instability. | | | |Dictated and Signed by: Amari You MD | | Electronically signed: 02/02/2019 3:05 PM | + + + +---------+ + + | Performing | Address | City/State/Zipcode | Phone Number | | Organization | | | | + +---------+ + + | [facility] | | | | + +---------+ + + documented in this encounter Visit Diagnoses + + | Diagnosis | + + | Cervical radiculopathy Brachial neuritis or radiculitis nos | + + | Chronic neck pain Cervicalgia | + + | Arm pain, right Pain in limb | + + | Chronic pain of right hand | + + | S/P carpal tunnel release Other postprocedural status | + + documented in this encounter"
--- OUTSIDE RECORDS SUMMARY | ~2019-10-27 | XMS | Encounter Summary ---
Demographics + + + | Address | [address] | | | [place] [address] | + + + | Home Phone | | + + + | Preferred Language | Unknown | + + + | Marital Status | | + + + | Yarsani Affiliation | 1041 | + + + | Race | Unknown | + + + | Ethnic Group | Unknown | + + + Author + + + | Author | [facility] | | | and Geovannyana | + + + | Organization | [facility] | | | and Geovannyana | [...] Team Providers + +------+ + | Care Project Scheduler Name | Role | Phone | + +------+ + | George Lynch | PCP | | | MD | | | + +------+ + Reason for Visit + + + | Reason | Comments | + + + | Results, Imaging | | + + + Encounter Details +--------+ + + + + | Date | Type | Department | Care Team | Description | +--------+ + + + + | 11/13/ | Telephone | [facility] | [place], | Results, Imaging | | 2016 | | PHYSIATRY [address] | [address]AN [address] | | | | | [address] | [address] | | | | | [place], [place] | [place] [address] | | | | | [address] | [phone] | | | | | [phone] | | | +--------+ + + + [...] this encounter Miscellaneous Notes Telephone Encounter - Ricarda Roberts CMA - 11/19/2015 10:17 AM PDTInformation relayed. Xochitl martinez voiced understanding. TTelephone Encounter - Ricarda Roberts CMA - 11/19/2015 10:11 AM PDTCalled to relay informatio n. Left voicemail asking patient to return call. elephone Encounter - Yari Jara PA-C - 11/19/2015 9:28 AM PDTIf the patient is only taking 300mg night and she is feeling pain free then there is no need to increase this dose. Give it a few days of taking 300mg nightly and she will be less drowsy and weak "Patient also complains of having a heavy and numbing feeling in her neck, shoulder blades, and up into the neck and head from the trigger point injections given on 11/13/15. Patient s tates her head feels big and describes it as the feeling you get when you go to a dentist. " Not sure what this is....might be more of a side effect form gabapentin. elephone Enclizzy nter - Ricarda Roberts CMA - 11/19/2015 9:00 AM PDTInformation relayed. Patient voiced unders tanding. Patient states she started taking the Gabapentin but it is making her very drowsy a nd weak. Patient states she is finally pain free but is concerned that she wont be able to w ork or do things around the house due to being weak and tired. She is currently taking one 3 00 mg tablet nighty and is at the point where she needs to increase to 2 tablets. Patient also complains of having a heavy and numbing feeling in her neck, shoulder blades, and up into the neck and head from the trigger point injections given on 11/13/15. Patient st ates her head feels big and describes it as the feeling you get when you go to a dentist. Please advise. elephon e Encounter - Ricarda Roberts CMA - 11/14/2015 3:37 PM PDTCalled to relay information. Left v oicemail asking patient to return call. elephone Encounter - R Ricarda strange CMA - 11/14/2015 3:36 PM PDT----- Message from Yari Skinner PA-C sent a t 11/14/2015 15:09 PDT ----- Cervical xray looks great, normal images. Continue to work on: 1. Start gabapentin that was sent to your pharmacy for fibromyalgia 2. Get a sleep study through your PCP 3. PT will call you. do cumented in this encounter Plan of Treatment Not on filedocumented as of this encounter Visit Diagnoses Not on filedocumented in this encounter
--- OUTSIDE RECORDS SUMMARY | ~2019-10-27 | XMS | Encounter Summary ---
Demographics + + + | Address | [address] | | | [place] [address] | + + + | Home Phone | | + + + | Preferred Language | Unknown | + + + | Marital Status | | + + + | Hoahaoism Affiliation | CAT | + + + | Race | White | + + + | Ethnic Group | or | + + + Author + + + | Author | [facility] | + + + | Organization | [facility] | + + + | Address [...] Team Providers + +------+ + | Care Drug Inspector Name | Role | Phone | + +------+ + PCP | Unavailable | + +------+ + Encounter Details +--------+ + + + + | Date | Type | Department | Care Team | Description | +--------+ + + + + | 02/17/ | Transcribed | UNKNOWN DEPARTMENT | Dictation, Other | Transcribed | | 1993 | | [address] | | | | | | [address] | | | | | | [place], [place] | | | | | | [address] | | | +--------+ + + + [...] as of this encounter Progress Notes Interface, Brake Shoe Rebuilder In - 08/29/2006 1:01 AM PDT [address] [address] [facility] February 17, 1993 CAROLE KEITH MD [facility] [address] [place] [id number] RE:Maritza Malone MR#:[id number] Dear Doctor Cipriano: Thank you for your consultation on Ms. Malone whom we had the pleasure of seeing in our clinic today. She is a 32-year-old lady who presents with one and one-half years of progressively worsening left-sided muscle tenderness which started after her as a back pain and now involves both her left arm, neck, back, and leg. The patient states that the pain is much worse in the morning and that she does not sleep well. She also stated that if she stops moving for any period of time, it is very difficult to start moving again secondary to this left-sided pain. It also appears that this patient has numerous stressors in her home life. 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 She has been treated with ibuprofen and had some relief of her symptoms in the past. However, her pain has never completely gone away. Her past medical history is significant for childbirth in July 1992 which seems to be when all of her symptomatology started and an appendectomy in the past. The patient's physical examination is essentially unremarkable with the exception of a slightly decreased motor strength in the left upper and lower extremity. However, it was difficult to determine whether this is secondary to pain. She does have numerous tender points suggestive of a fibromyalgia-type syndrome. However, these are only present on the left side. Another issue that was discussed with the patient today was the fact that she has difficulty sleeping, is easily awakened, is quite tired during the day, and feels that oftentimes she could easily go to sleep practically standing on her feet. Apparently, x-rays were done in [place] of her lumbosacral spine and sacrum, and those were read as unremarkable. She also had a neurology evaluation in [place] which again showed a nonfocal examination. This is a lady who presents with some typical features for fibromyalgia. However, this is quite an unusual presentation in that her symptoms are unilateral which would be somewhat strange. However, she does have many of the other predisposing factors including a stressful home environment and an inability to sleep well at night. She also has some features that might be suggestive of a spondyloarthropathy with morning stiffness and a gelling of her joints. However, her joints do not seem to be inflamed at all, and her x-rays were read as normal by the doctors in [place]. Our thought would be to go ahead and treat her with a low dose of amitriptyline starting at 10 milligrams q.h.s. and increasing to 30 milligrams q.h.s. by 10 milligrams per week. We would like to see her back in our clinic in one month. Hopefully, we can improve her symptoms with helping her to get a better nights sleep with this low dose of antidepressant medicine. We would also like for her to bring her x-rays with her the next time that she comes. We will review those ourselves. Again, thank you for sending us this interesting lady. Sincerely, Saul Jasso M.D. Resident, Internal Medicine Carole Nielsen M.D. Professor, Medicine, Ophthalmology, and Cell Biology ZIA:eri February 18, 1993 documented in this encounter Plan of Treatment +--------+---------+ + + + | Date | Type | Specialty | Care Team | Description | +--------+---------+ + + + | 12/29/ | Office | Ophthalmology | Martha Savage MD | | | 2020 | Visit | | [address] | | | | | | [place], | | | | | | [place] [address] | | | | | | [phone] | | | | | | | | +--------+---------+ + + + documented as of this encounter Visit Diagnoses Not on filedocumented in this encounter"
--- OUTSIDE RECORDS SUMMARY | ~2019-10-27 | XMS | Encounter Summary ---
Demographics + + + | Address | [address] | | | [place] [address] | + + + | Home Phone | | + + + | Preferred Language | Unknown | + + + | Marital Status | | + + + | Scientology Affiliation | CAT | + + + | Race | White | + + + | Ethnic Group | or | + + + Author + + + | Author | [facility] | + + + | Organization | [facility] | + + + | Address | Unknown | + + + | Phone | Unavailable | + + + Support + + + + + | Name | Relationship | Address | Phone | + + + + + | Golden Malone | [place] | [place] | | + + + + + Care Team Providers + +------+ + | Care Furnace Builder Name | Role | Phone | + +------+ + | George Lynch MD | PCP | | + +------+ + Encounter Details +--------+ + + + + | Date | Type | Department | Care Team | Description | +--------+ + + + + | 11/24/ | Telephone | Otolaryngology | Anupama Naranjo | | | 2012 | | Otology Services at | [facility] [address] | | | | | [address] | | | | | [address] | [facility] [place] | | | | | Physician's | [address] | | | | | Pavilion, 2nd floor | [phone] | | | | | [place], [place] | | | | | | [address] | | | | | | [phone] | | | +--------+ + + + [...] | | | | | [place], | | | | | | [place] [address] | | | | | | [phone] | | | | | | | | +--------+---------+ + + + documented as of this encounter Visit Diagnoses Not on filedocumented in this encounter"
--- OUTSIDE RECORDS SUMMARY | ~2019-10-27 | XMS | Encounter Summary ---
Demographics + + + | Address | [address] | | | [place] [address] | + + + | Home Phone | | + + + | Preferred Language | Unknown | + + + | Marital Status | | + + + | Jewish Affiliation | CAT | + + + | Race | White | + + + | Ethnic Group | or | + + + Author + + + | Author | [facility] | + + + | Organization | [facility] | + + + | Address [...] Team Providers + +------+ + | Care Information Technology Auditor Name | Role | Phone | + +------+ + | George Lynch MD | PCP | | + +------+ + Reason for Visit +--------+ + | Reason | Comments | +--------+ + | Preop | right tympanoplasty 11/23 | +--------+ + Encounter Details +--------+---------+ + + + | Date | Type | Department | Care Team | Description | +--------+---------+ + + + | 11/22/ | Office | Otolaryngology | Anupama Naranjo | Cholesteatoma of | | 2013 | Visit | Otology Services at | [facility] [address] | middle ear (Primary | | | | [address] [address] | Dx) | | | | [address] | [place], [place] | | | | | Physician's | [address] | | | | | [address], [address]nd floor | [phone] | | | | | [place], [place] | | | | | | [address] | | | | | | [phone] | | | +--------+---------+ + + + Social History + +-------+ [...] + + documented as of this encounter Patient Instructions Patient Instructions Lourdes Cm MA - 11/22/2012 1:20 PM PDTThank you for choosing [facility] Department of Otolaryngology for your health care needs. If you need to speak to an EN T physician after normal business hours, please call [phone] and ask to have the ENT ph ysician surgery consultant paged. The [facility] Quarter is a great way to contact me if you have questions in between visits. If you are n ot already signed up for The 5th Quarter there is information at the end of this After Visit Summary to help you get started. documented in this encounter Progress Notes Anupama Naranjo MD - 11/27/2012 8:47 AM PDTMaritza Malone is here for preop leonila husain. documented in t his encounter Plan of Treatment +--------+---------+ + + + | Date | Type | Specialty | Care Team | Description | +--------+---------+ + + + | 12/29/ | Office | Ophthalmology | Martha Savage MD | | | 2020 | Visit | | [address] | | | | | | [place], | | | | | | [place] [address] | | | | | | [phone] | | | | | | | | +--------+---------+ + + + documented as of this encounter Visit Diagnoses + + | Diagnosis | + + | Cholesteatoma of middle ear - Primary | + + documented in this encounter"
--- OUTSIDE RECORDS SUMMARY | ~2019-10-27 | XMS | Encounter Summary ---
Demographics + + + | Address | [address] | | | [place] [address] | + + + | Home Phone | | + + + | Preferred Language | Unknown | + + + | Marital Status | | + + + | Lutheran Affiliation | CAT | + + + | Race | White | + + + | Ethnic Group | or | + + + Author + + + | Author | [facility] | + + + | Organization | [facility] | + + + | [...] Team Providers + +------+ + | Care Kindergarten Prep Teacher Name | Role | Phone | + +------+ + | George Lynch MD | PCP | | + +------+ + Reason for Visit AUTH/CERT +--------+--------+ + + + + | Status | Reason | Specialty | Diagnoses / | Referred By | Referred To | | | | | Procedures | Contact | Contact | +--------+--------+ + + + + | Closed | | | | | | +--------+--------+ + + + + Encounter Details +--------+ + + + + | Date | Type | Department | Care Team | Description | +--------+ + + + + | 11/23/ | Anesthesia | 4N INTRA OP [address]161 | Raul Carrillo, | | | 2012 | Event | [facility] | [address] | | | | | Elyse Nelson | [address] | | | | | Ambulatory Surgery | [place], [place] | | | | | Admitting Desk | [address] | | | | | Located on the [facility] | [phone] | | | | | floor, Room [facility] | | | | | | [place], [place] | Jorge Whyte MD | | | | | [address] | [address] | | | | | | [place], | | | | | | [place] [address] | | | | | | [phone] | | | | | | | | +--------+ + + + + Anesthesia Record + + + + + | Procedure Name | Responsible | Anesthesia Start | Anesthesia Stop Time | | | Anesthesiologist | Time | | + + + + + | TYMPANOPLASTY | Raul Carrillo MD | 11/23/12724 | 11/23/12817 | | WITHOUT MASTOID | | | | | (Right Ear) | | | | + + + + + +----+---+ + + | Da | T | Event | Comment | | te | i | | | | | m | | | | | e | | | +----+---+ + + | 07 | 0 | Eq Check | Anesthesia machine checked Equipment verified | | /2 | 6 | | | | 3/ | 5 | | | | 20 | 4 | | | | 13 | | | | +----+---+ + + | | 0 | Pt. Check | Prior to anesthesia start, pt. Identified, examined, chart | | | 7 | | reviewed, PARQ held, anesthetic plan made or approved by | | | 1 | | attending anesthesiologist. NPO status confirmed as appropriate | | | 5 | | for procedure Preoperative evaluation: unchanged | +----+---+ + + | | 0 | Preprocedur | Pt ID confirmed, informed consent obtained, insertion site | | | 7 | e Checklist | marked, equipment available | | | 1 | | | | | 5 | | | +----+---+ + + | | 0 | An Start | | | | 7 | | | | | 2 | | | | | 5 | | | +----+---+ + + | | 0 | An Start | | | | 7 | Data | | | | 2 | | | | | 8 | | | +----+---+ + + | | 0 | Vitals | Monitors applied Vital signs checked Patient ready for anesthesia | | | 7 | Checked | | | | 3 | | | | | 0 | | | +----+---+ + + | | 0 | Quick Note | Propofol gtt started, pt on NC O2 with EtCO2 monitor | | | 7 | | | | | 3 | | | | | 1 | | | +----+---+ + + | | 0 | Local | | | | 7 | Anesthetic | | | | 4 | by Surgeon | | | | 0 | | | +----+---+ + + | | 0 | Timeout | | | | 7 | | | | | 4 | | | | | 7 | | | +----+---+ + + | | 0 | Abx held | Abx held for Medical Reason: Contraindicated or already receiving | | | 7 | Medical or | antibiotics | | | 4 | Surgical | | | | 7 | Reason | | +----+---+ + + | | 0 | Incision | | | | 7 | | | | | 5 | | | | | 6 | | | +----+---+ + + | | 0 | Surgery end | | | | 8 | | | | | 0 | | | | | 8 | | | +----+---+ + + | | 0 | an stop | | | | 8 | data | | | | 1 | | | | | 2 | | | +----+---+ + + | | 0 | Anesthesia | | | | 8 | End | | | | 1 | | | | | 8 | | | +----+---+ + + +------+ | Meds | +------+ + + + | Name | Total | + + + | midazolam | 2 mg | + + + | lidocaine 2% | 60 mg | + + + | propofol INF | 120,109 mcg | + + + | alfentanil | 1,000 mcg | + + + | fentaNYL | 25 mcg | + + + | LR | 0 mL | + + + + + | Name | + + | O2 Flow Rate (Total Liters) | + + + + | No blood administrations on file. | + + +--------+ + + + | Type | Details | Placement | Removal | +--------+ + + + | RETIRE | 11/23/12; 714; 11/23/12; 945; | 11/23/12714 by | 11/23/12945 by | | D - | 20; Left; Hand; Lidocaine; | Anabel Macedo RN | Anabel Macedo RN | | Periph | Positive | | | | eral | | | | | Line | | | | +--------+ + + + documented in this encounter Social History + +-------+ +--------+------+ | Tobacco [...] [address] | | | | | | [place], | | | | | | [place] [address] | | | | | | [phone] | | | | | | | | +--------+---------+ + + + documented as of this encounter Visit Diagnoses Not on filedocumented in this encounter Administered Medications + +--------+ +---------+------+------+ | Medication Order | MAR | Action | Dose | Rate | Site | | | Action | Date | | | | + +--------+ +---------+------+------+ | alfentanil (aka ALFYUMIKO) | Given | 11/24/19 | 100 mcg | | | | injection INTRAPROCEDURE PRN, | | 13 7:58 | | | | | Starting 11/23/12 at 0736, | | AM PDT | | | | | Until 11/23/12 at 0813 | | | | | | + +--------+ +---------+------+------+ +-------+ +---------+---+---+ | Given | 11/24/19 | 100 mcg | | | | | 13 7:56 | | | | | | AM PDT | | | | +-------+ +---------+---+---+ | Given | 11/24/19 | 100 mcg | | | | | 13 7:54 | | | | | | AM PDT | | | | +-------+ +---------+---+---+ +---+---+ | | | +---+---+ + +-------+ +--------+---+---+ | fentaNYL citrate (PF) (aka | Given | 11/24/19 | 25 mcg | | | | SUBLIMAZE) injection | | 13 8:02 | | | | | INTRAPROCEDURE PRN, Starting Tue | | AM PDT | | | | | 11/23/12 at 0802, Until Tue | | | | | | | 11/23/12 at 0813, sedation | | | | | | + +-------+ +--------+---+---+ +---+---+ | | | +---+---+ + +---------+ +---+---+---+ | lactated ringers IV | New Bag | 11/24/19 | | | | | INTRAPROCEDURE CONTINUOUS PRN, | | 13 7:25 | | | | | Starting 11/23/12 at 0725, | | AM PDT | | | | | Until 11/23/12 at 0813 | | | | | | + +---------+ +---+---+---+ +---+---+ | | | +---+---+ + +-------+ +-------+---+---+ | lidocaine (aka XYLOCAINE MPF) | Given | 11/24/19 | 60 mg | | | | 20 mg/mL (2 %) injection | | 13 7:28 | | | | | INTRAPROCEDURE PRN, Starting Tue | | AM PDT | | | | | 11/23/12 at 0728, Until Tue | | | | | | | 11/23/12 at 0813 | | | | | | + +-------+ +-------+---+---+ +---+---+ | | | +---+---+ + +-------+ +------+---+---+ | midazolam (aka VERSED) | Given | 11/24/19 | 2 mg | | | | injection INTRAPROCEDURE PRN, | | 13 7:25 | | | | | Starting 11/23/12 at 0725, | | AM PDT | | | | | Until 11/23/12 at 0813, | | | | | | | sedation | | | | | | + +-------+ +------+---+---+ +---+---+ | | | +---+---+ + + + + +--------+---+ | propofol (aka DIPRIVAN) | Rate/Dos | 11/24/19 | 30 | 12.08 | | | injection INTRAPROCEDURE | e Change | 13 8:05 | mcg/kg/m | mL/hr | | | CONTINUOUS PRN, Starting Tue | | AM PDT | in | | | | 11/23/12 at 0730, Until Tue | | | | | | | 11/23/12 at 0813 | | | | | | + + + + +--------+---+ +---------+ + +-------+---+ | New Bag | 11/24/19 | 40 | 16.1 | | | | 13 7:30 | mcg/kg/m | mL/hr | | | | AM PDT | in | | | +---------+ + +-------+---+ +---+---+ | | | +---+---+ documented in this encounter"
--- OUTSIDE RECORDS SUMMARY | ~2019-10-27 | XMS | Encounter Summary ---
Demographics + + + | Address | [address] | | | [place] [address] | + + + | Home Phone | | + + + | Preferred Language | Unknown | + + + | Marital Status | | + + + | Worship Affiliation | CAT | + + + | Race | White | + + + | Ethnic Group | or | + + + Author + + + | Author | [facility] | + + + | Organization | [facility] | + + + | Address [...] Team Providers + +------+ + | Care Cook Helper Preserves Name | Role | Phone | + [...] | | | | [address] | [facility] [place] | | | | | Physician's | [address] | | | | | Pavilion, 2nd floor | [phone] | | | | | [place], [place] | | | | | | [address] | | | | | | [phone] | | | +--------+ + + + [...] | | | | | [address] [place], | | | | | | [place] [address] | | | | | | [phone] | | | | | | | | +--------+---------+ + + + documented as of this encounter Visit Diagnoses Not on filedocumented in this encounter"
--- OUTSIDE RECORDS SUMMARY | ~2019-10-27 | XMS | Encounter Summary ---
Demographics + + + | Address | [address] [place] [address] | | | [place] [address] | + + + | Home Phone | | + + + | Preferred Language | Unknown | + + + | Marital Status | | + + + | Shinto Affiliation | 1041 | + + + | Race | Unknown | + + + | Ethnic Group | Unknown | + + + Author + + + | Author | [facility] | | | and [place] | + + + | Organization | [facility] | | | and [place] | [...] Team Providers + +------+ + | Care Pipe Inspector Name | Role | Phone | + +------+ + | George Lynch | PCP | | | MD | | | + +------+ + Encounter Details +--------+ + + + + | Date | Type | Department | Care Team | Description | +--------+ + + + + | 09/23/ | Abstract | [facility] | [place], | | | 2015 | | PHYSIATRY [address] | [address] | | | | | [address] | [address] | | | | | [place] | [place] [address] | | | | | [address] | [phone] | | | | | [phone] | | | +--------+ + + + [...]
--- OUTSIDE RECORDS SUMMARY | ~2019-10-27 | XMS | Clinical Summary ---
Demographics + + + | Address | [address] | | | [place] [address] | + + + | Home Phone | | + + + | Preferred Language | Unknown | + + + | Marital Status | | + + + | Buddhism Affiliation | 1041 | + + + | Race | Unknown | + + + | Ethnic Group | Unknown | + + + Author + + + | Author | [facility] | | | and [place] | + + + | Organization | [facility] | | | and [place] [...] Providers + +------+ + | Care Research And Development Chemist Name | Role | Phone | + +------+ + | George Lynch | PCP | | | MD | | | + +------+ + Allergies + + + + + + | Active Allergy | Reactions | Severity | Noted | Comments | | | | | Date | | + + + + + + | Latex | Rash | Low | 05/25/20 | | | | | | 16 | | + + + + + + Medications + + + +---------+------+------+-------+ | Medication | Sig | Dispensed | Refills | Star | End | Statu | | | | | | t | Date | s | | | | | | Date | | | + + + +---------+------+------+-------+ | acetaminophen | Take 325 mg by mouth | | 0 | 09/1 | | Activ | | (TYLENOL) 325 mg | as needed. | | | 4/20 | | e | | tablet | | | | 12 | | | + + + +---------+------+------+-------+ | tolnaftate | Apply topically 2 | | 0 | | | Activ | | (TINACTIN) 1% cream | times daily. | | | | | e | + + + +---------+------+------+-------+ | aspirin 81 MG | Take 81 mg by mouth | | 0 | | | Activ | | tablet | Daily. | | | | | e | + + + +---------+------+------+-------+ | meloxicam (MOBIC) | Take 15 mg by mouth | | 0 | | | Activ | | 15 mg tablet | Daily. | | | | | e | + + + +---------+------+------+-------+ | LORazepam (ATIVAN) | Take 0.5 mg by mouth | | 0 | | | Activ | | 0.5 mg tablet | every 6 hours as | | | | | e | | | needed for Anxiety. 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 | + + + + + | Neck pain | 11/13/2015 | + + + | Sacroiliitis, not elsewhere classified | 09/26/2015 | + + + | DDD (degenerative disc disease), lumbar | 09/26/2015 | + + + | Foraminal stenosis of lumbar region- mild left L5 | 09/26/2015 | + + + | Fibromyalgia | 09/26/2015 | + + + | INSOMNIA | | + + + | URINARY INCONTINENCE, URGE | | + + + | TROCHANTERIC BURSITIS | | + + + Family History + + +------+ + | Medical History | Relation | Name | Comments | + + +------+ + | Diabetes | Father | | | + + +------+ + | Arthritis | Mother | | | + + +------+ + + +------+--------+ + | Relation | Name | Status | Comments | + +------+--------+ + | Father | | Alive | | + +------+--------+ + | Mother | | Alive | | + +------+--------+ + Social History [...] on file | | + + + Last Filed Vital Signs + + + + + | Vital Sign | Reading | Time Taken | Comments | + + + + + | Blood Pressure | 124/82 | 02/02/2019 11:38 AM | | | | | PDT | | + + + + + | Pulse | 80 | 04/21/2018 3:31 PM | | | | | PST | | + + + + + | Temperature | - | - | | + + + + + | Respiratory Rate | 16 | 02/02/2019 11:38 AM | | | | | PDT | | + + + + + | Oxygen Saturation | - | - | | + + + + + | Inhaled Oxygen | - | - | | | Concentration | | | | + + + + + | Weight | 65.8 kg (145 lb) | 02/02/2019 11:38 AM | | | | | PDT | | + + + + + | Height | 152.4 cm (5') | 02/02/2019 11:38 AM | | | | | PDT | | + + + + + | Body Mass Index | 28.32 | 02/02/2019 11:38 AM | | | | | PDT | | + + + + + Plan of Treatment + + + + + | Health Maintenance | Due Date | Last | Comments | | | | Done | | + + + + + | Hepatitis C | | | | | Screening | 2 | | | + + + + + | Vaccine: | | | | | Dtap/Tdap/Td (1 - | 1 | | | | Tdap) | | | | + + + + + | Cervical Cancer | | | | | Screening (Pap) | 2 | | | + + + + + | Colorectal Cancer | | | | | Screening | 2 | | | | (Colonoscopy) | | | | + + + + + | Adult Annual | | | | | Wellness Visit | 5 | | | + + + + + | Breast Cancer | | | | | Screening | 7 | | | + + + + + | Vaccine: Zoster (2 | | 11/30/19 | | | of 3) | 7 | 17 | | + + + + + | Vaccine: Influenza | | | | | (Season Ended) | 0 | | | + + + + + Results Not on filefrom Last 3 Months Insurance + +--------+ +--------+ +---------+--------+ | Payer | Benefi | Subscriber | Effect | Phone | Address | Type | | | t Plan | ID | yara | | | | | | / | | Dates | | | | | | Group | | | | | | + +--------+ +--------+ +---------+--------+ | MEDICARE | MEDICA | [id number] | Effect | [phone] | | Medica | | | RE | | yara | 5 | | re | | | PART A | | for | | | | | | AND B | | all | | | | | | | | dates | | | | + +--------+ +--------+ +---------+--------+ | BCBS | BCBS | [id number] | | | | PPO | | | OOS | 1001 | 019-Pr | | | | | | PPO | | esent | | | | + +--------+ +--------+ +---------+--------+ | MEDICARE | MEDICA | [id number] | 01/03/20 | [phone] | | Medica | | | RE | | 19-Pre | 5 | | re | | | PART A | | sent | | | | | | AND B | | | | | | + +--------+ +--------+ +---------+--------+ | REGENCE | REGENC | [id number] | | [phone] | | PPO | | | E BCBS | 1001 | 019-Pr | 8 | | | | | [place] | | es[place] | | | | | | PPO | | | | | | + +--------+ +--------+ +---------+--------+ + +--------+ +--------+ + + | Guarantor Name | Accoun | Relation to | Date | Phone | Billing Address | | | t Type | Patient | of | | | | | | | | | | + +--------+ +--------+ + + | Maritza Gilliland | Person | Self [birth year] | [address] | | | al/Fam | | 1960 | [phone] | [place] | | | [place] | | | 2 (Home) | [address] | | | | | | [phone] | | | | | | | 2 (Work) | | + +--------+ +--------+ + + | Maritza Gilliland | Person | Self [birth year] | [address] | | | al/Fam | | 1961 | [phone] | [place] | | | [place] | | | 2 (Home) | [address] | | | | | | [phone] | | | | | | | 2 (Work) | | + +--------+ +--------+ + + Advance Directives + + + + + | Type | Date Recorded | Patient | Explanation | | | | Bunch Maker Hand | | + + + + + | Power of | | | | | Laundry Machine Operator | | | | + + + + + | Advance | 04/21/2018 | | | | Directive | 2:40 PM | | | + + + + +"
--- OUTSIDE RECORDS SUMMARY | ~2019-10-27 | XMS | Encounter Summary ---
Demographics + + + | Address | [address] | | | [place] [address] | + + + | Home Phone | | + + + | Preferred Language | Unknown | + + + | Marital Status | | + + + | Islam Affiliation | 1041 | + + + | Race | Unknown | + + + | Ethnic Group | Unknown | + + + Author + + + | Author | [facility] | | | and [place] | + + + | Organization | [facility] | | | and [place] [...] Team Providers + +------+ + | Care Matcher Operator Name | Role | Phone | + +------+ + | George Lynch | PCP | | | MD | | | + +------+ + Reason for Visit + +--------+ + | Reason | Onset | Comments | | | Date | | + +--------+ + | Imaging Only | 02/03/ | | | | 2018 | | + +--------+ + Encounter Details +--------+ + + + + | Date | Type | Department | Care Team | Description | +--------+ + + + + | 02/03/ | Telephone | [facility] | Vernon Mar PA-C | Imaging Only | | 2019 | | PHYSIATRY [address] | [address] | | | | | [address] | [place] | | | | | [place] | [address] | | | | | [address] | | | | | | [phone] | | | +--------+ + + + [...] this encounter Miscellaneous Notes Telephone Encounter - Cristy Salinas Shirring Machine Operator Automatic - 02/03/2019 11:38 AM PDTPatient n otified of xray results and recommendations. Patient verbalized understanding. She is schedu led for MRI on 02/11/2019.Electronically signed by Fabian Acuna Assistant at 07/2018 11:39 AM PDTTelephone Encounter - Cristy Salinas Shirring Machine Operator Automatic - 02/03/2019 11: 38 AM PDT----- Message from Vernon Mar PA-C sent at 02/03/2019 11:32 PDT ----- Cristy, Please call patient regarding Neck X-rays results. Results suggest mild degenerative changes, but no instability or major that would explain h er symptoms. We will wait for the MRI results before moving forward with any treatment plan Thanks, Vernon Mar PA-C docume nted in this encounter Plan of Treatment Not on filedocumented as of this encounter Visit Diagnoses Not on filedocumented in this encounter"
--- OUTSIDE RECORDS SUMMARY | ~2019-10-27 | XMS | Encounter Summary ---
Demographics + + + | Address | [address] [address] | | | [place] [address] | + + + | Home Phone | | + + + | Preferred Language | Unknown | + + + | Marital Status | | + + + | Voodoo Affiliation | CAT | + + + | Race | White | + + + | Ethnic Group | or | + + + Author + + + | Author | [facility] | + + + | Organization | [facility] | + + + | [...] Team Providers + +------+ + | Care Salt Operator Name | Role | Phone | + +------+ + | George Lynch MD | PCP | | + +------+ + Reason for Visit + + + | Reason | Comments | + + + | Pre-operative | | | evaluation | | + + + Encounter Details +--------+---------+ + + + | Date | Type | Department | Care Team | Description | +--------+---------+ + + + | 11/22/ | Office | Preoperative | Anna Santos FNP | Pre-op evaluation | | 2012 | Visit | Medicine Clinic at | [address] | (Primary Dx); GERD | | | | MPV Day | [address] [facility], | (gastroesophageal | | | | Stay [address] | [place] [address] | reflux disease); | | | | [address] | [phone] | Cholesteatoma of | | | | Mailcode: [id number] | | middle ear | | | | [facility] | | | | | | [address] [place], [place] | | | | | | [address] | | | | | | [phone] | | | +--------+---------+ + + + Anesthesia Record + + [...] | | | 7 | | reviewed, LIVIER held, anesthetic plan made or approved by [...] | Meds | +------+ + + + No medications | on file. | + + + + + | No agents on file. | + + + + | No [...] + + documented as of this encounter Last Filed Vital Signs + + + + + | Vital Sign | Reading | Time Taken | Comments | + + + + + | Blood Pressure | 139/76 | 11/22/2012 3:37 PM | | | | | PDT | | + + + + + | Pulse | 80 | 11/22/2012 3:37 PM | | | | | PDT | | + + + + + | Temperature | 37.1 C (98.8 F) | 11/22/2012 3:37 PM | | | | | PDT | | + + + + + | Respiratory Rate | 14 | 11/22/2012 3:37 PM | | | | | PDT | | + + + + + | Oxygen Saturation | 97% | 11/22/2012 3:37 PM | | | | | PDT | | + + + + + | Inhaled Oxygen | - | - | | | Concentration | | | | + + + + + | Weight | 67.1 kg (148 lb) | 11/22/2012 3:37 PM | | | | | PDT | | + + + + + | Height | 152.4 cm (5') | 11/22/2012 3:37 PM | neck 32cm | | | | PDT | | + + + + + | Body Mass Index | 28.9 | 11/22/2012 3:37 PM | | | | | PDT | | + + + + + documented in this encounter Patient Instructions Patient Instructions Anna Santos NP - 11/22/2012 3:48 PM PDT PREOPERATIVE INSTRUCTIONS Empty stomach before surgery On the day BEFORE your surgery, drink plenty of fluids and stay well hydrated. NOTHING to eat or drink after midnight the night before surgery, or 8 hours prior to beverly rgery. This includes water, coffee, candy, mints, gum. Medications Instructions TAKE the following medications with a sip of water on the morning of surgery: Omeprazole Unless otherwise directed by your surgeon, do not take any Aspirin, vitamin E or non-kevin roidal anti-inflammatory (NSAIDs i.e. Advil, Aleve, Ibuprofen) or herbal supplements 7-14 da ys prior to your surgery. These drugs may interfere with normal blood clotting and may cause excessive bleeding and bruising during or after the surgery. If you are taking Coumadin (warfarin), Plavix or any other blood thinners please let you r surgical team know as medication changes may be necessary. If you need a pain medication for general purposes, use Tylenol as directed. OK to take it even on the morning of surgery, if needed. If you are in doubt about any medications that you are taking, please contact our office . Other Important Guidelines Do not shave the surgical area Do not smoke, drink alcohol or use recreational drugs for 24 hours before your surgery Watch for any change in your health condition. Let your surgeon know right away if you do not feel well. Do not wear makeup, perfume, lotions, deodorant, powder or hairspray. Do not wear any jewelry to the hospital. Wear loose, comfortable clothing. Leave all your valuables at home. Allow enough travel time so you re not late for your check in for surgery. Take a bath or shower and remember to shampoo your hair using your usual hair product bef ore your arrival at the hospital. Please remember to brush your teeth the night before and the morning of your procedure. Preventing post op complications while you are in the hospital Use an incentive spirometer or peep breathe to keep your lungs working properly an d to help prevent respiratory complications. It helps you take long, deep breaths. Use it at least once every hour while you are awake. Leg and feet exercises will maintain good circulation and help prevent blood clots in yo ur legs. Sometimes your doctor will order air compression stockings. Compressed air helps the circulation in your legs. Walking and moving will help stimulate normal circulation and deep breathing. After you r surgery, your nurse may ask you to sit, stand or walk. Surgery Check in Locations Admitting [facility], ninth floor [facility] Day Stay Unit - [facility], 4th floor Room 4511 [facility] Day Stay [facility], fourth floor I Surgery Unit [facility], sixth floor Surgery Check in Time: The Preoperative Medicine Clinic is not in the position to give you accurate information regarding surgical check in time. We refer you back to your surgical office regarding this important information. Going Home Your surgical team will decide when you are medically ready to go home. If you are released to go home on the same day as your procedure/surgery please note the following: You will not be able to drive. You will be required to have a competent person drive you or accompany you by taxi or pu blic transportation on the day of discharge. It is also required that you have a competent person assist you and look after you on th e first night after you have undergone regional blocks (72 hours for patients going home wit h regional block pump), deep sedation, and/or general anesthesia. If you stayed in the hospital after surgery, please arrange for your ride to come for yo u around 9AM on the day your doctor says you can go home. Check out time is 11AM. If you have questions or concerns after you go home, call your doctor s office. If it is after office hours, call the [facility] derrick operator at [phone] and ask them to page him or h er. Preparing For Your Surgery Video -- 7 minutes of instructions! Access the [facility] website [email or web address] --> POPULAR RESOURCES --> Patient Guide --> Preparing for your Visit or Surgery --> "Preparing for Your Surgery" video link documented in this encounter Progress Notes Anna Santos NP - 11/22/2012 3:51 PM PDTFormatting of this note might be different from t he original. PREOPERATIVE CONSULT NOTE Consulting Provider: ANNA SANTOS NP Referring Physician: Dr. Lina Ferriera Primary Care Provider: George Lynch MD Reason for Consult: Preoperative evaluation and risk assessment Proposed Procedure/Date: Tympanoplasty on 11/23/12. HISTORY OF PRESENT ILLNESS: Maritza Malone is a 52 y.o. female here for preoperative evalu ation for above procedure. Pt has dx of cholesteatoma. She reports a long history of worsening balance problems and R sided head pain with otalgia. She plans a tympanoplasty. Her PMH is significant for GERD. She has no hx nor symptoms of CAD, CHF, CVA, CKD or DM (treated with insulin). Functional capacity is Intermediate ROS: Current Medication List Name Sig DIPHENHYDRAMINE-ACETAMINOPHEN 25 MG-500 MG TABLET Take 1 Tab by mouth as needed. OMEPRAZOLE 20 MG CAPSULE,DELAYED RELEASE Take 1 Cap by mouth two times daily. ZINC ORAL Take 1 Tab by mouth once daily. No Known Allergies Past Medical History Diagnosis Date GERD (gastroesophageal reflux disease) Other general symptoms Past Surgical History Procedure Date Rotator cuff repair 2003 Bunionectomy 2009 Appendectomy Mastoidectomy 1992 Bladder suspension 2010 Family History Problem Relation Hypertension Mother Diabetes Father History Substance Use Topics Smoking status: Never Smoker Smokeless tobacco: Never Used Alcohol Use: Yes rare beer PHYSICAL EXAM: Last Vitals: BP 139/76 | Pulse 80 | Temp (Src) 37.1 C (98.8 F) (Oral) | RR 14 | Ht 1.52 4 m (5') | Wt 67.132 kg (148 lb) | SpO2 97% | LMP 07/14/2012 | BMI 28.9 kg/(m^2) Body mass i ndex is 28.9 kg/(m^2). PMC ROS Last edited 11/23/12713 by Jorge Whyte MD ROS Pulmonary: Within Defined Limits except as noted below No dx of sleep apnea Cardiovascular: 10 year history of muscle pain in L shoulder that radiates up neck and down to breast. Evaluated as CP 5 years ago with negative EKG and ECHO per pt. Functional Capacity: Moderate no CAD no pacemaker GI/Hepatic: no GERD : Within Defined Limits except as noted below Endo: Within Defined Limits except as noted below Neurological: Within Defined limits except as noted below pain (Head pain.) Current pain level: 4 MS: Left shoulder pain that moves up to neck and down to tip of breast x 10 years since rotator cuff surgery. Evaluated as CP, negative Echo 2007 LBP with radiculopathy, Rt leg pain worse than left. Heme/Onc: Within Defined Limits except as noted below Skin: Within Defined Limits except as noted below Physical Exam General: Patients general appearance: Alert, No distress, Cooperative and Age appropriate Head & Neck/Airway: Normal appearing ears and nose. Neck ROM: full Neck Circumference: < 40 cm. TM Distance:Normal Corral: No Mallampati: II Mouth Opening: > = 3 cm C-Spine: normal Neck Anatomy: Normal Jaw Protrusion: Normal, lower incisors can protrude past upper incisors Lung Exam: No respiratory distress. Normal breathing pattern. breath sounds normal Cardiac: No murmurs, gallops or rubs. Rhythm: regular Rate: normal Abdominal: General Findings: Deferred Musculoskeletal: Findings: tone normal Neuro/Psych: Alert and appropriate; nl affect. alert Findings: Motor 5/5 strength globally with normal tone, No tremor, Alert, oriented to person, place, time and Normal affect Integument: No open rashes or lesions noted. - lesion and rash Color: pink Turgor: turgor normal Implants: Comments: Hardware in R toe. LAB DATA REVIEWED/ORDERED Lab Results Component Value Date A1C 5.8* 11/22/2012 EKG: Personally reviewed NSR MEDICAL DECISION MAKIN ACC/ AHA Perioperative Guidelines 1. Need for emergency noncardiac surgery? b. No -> Proceed to next step. 2. Active Cardiac Conditions? These conditions mandate further investigation and manageme nt. A. Acute ND within 7 days: no B. Unstable angina/Recent ND (7- 30 days): no C. Decompensated CHF: no D. Significant arrhythmia: None E. Severe valvular disease: NONE 3. Low risk surgery? a. Yes -> proceed with planned surgery. Risk Factor Recommendations: 0 risk factors- proceed with planned surgery Surgery Risk: Low Patient-related risk: Estimated ASA class -- 2 ASSESSMENT and RECOMMENDATIONS: Surgical/anesthesia risk assessment: Maritza Malone is a 52 y.o. female with diagnosis of cholesteatoma, scheduled for above. According to ACC/AHA, this patient has 0 clinical ri sk factors and the recommendation is to proceed with planned surgery without additional card iac testing. Medication management recommendations: The patient was advised to continue all usual med ications except as noted in Patient Instructions (After Visit Summary given to pt) Perioperative antibiotic prophylaxis: Standard (Consider IV Vanco one hr before procedu re in pts with Cephalosporin/PCN allergy and/or with hx of MRSA) GERD: Controlled. Continue Omeprazole Chronic left shoulder pain after rotator cuff surgery; stable. Follow up PCP This patient is medically stable for surgery. Further testing/optimization is not needed. Thank you for the opportunity to contribute to this patient's care. ANNA SANTOS NP [facility] PREOPERATIVE MEDICINE CLINIC [address] [place] [phone] I spent 20 minutes with the patient. Greater than 50% of the time was spent counseling the patient regarding perioperative risk assessment (cardiac, bleeding, surgical site infection , etc) and methods to avoid post op complications including respiratory failure/hospital acq uired pneumonia and DVT. The patient was also advised regarding NPO requirement, hydration before surgery, showering, general body hygiene. All pre-procedure instructions given to th e patient. All of patient's questions answered and clarified. Patient verbalized understan ding of the instructions given. documented in this encounter Plan of Treatment +--------+---------+ + + + | Date | Type | Specialty | Care Team | Description | +--------+---------+ + + + | 12/29/ | Office | Ophthalmology | Martha Savage MD | | | 2020 | Visit | | [address] | | | | | | [place], | | | | | | [place] [address] | | | | | | [phone] | | | | | | | | +--------+---------+ + + + documented as of this encounter Procedures + +--------+ + + + | Procedure Name | Priori | Date/Time | Associated Diagnosis | Comments | | | ty | | | | + +--------+ + + + | 12 LEAD ECG | Routin | 11/22/2012 | Pre-op evaluation | Results for this | | | e | 4:32 PM | | procedure are in the | | | | PDT | | results section. | + +--------+ + + + | HEMOGLOBIN A1C, POC | Routin | 11/22/2012 | Pre-op evaluation | Results for this | | | e | 4:19 PM | | procedure are in the | | | | PDT | | results section. | + +--------+ + + + documented in this encounter Results 12 LEAD ECG (11/22/2012 4:32 PM PDT) + + + + + + | Component | Value | Ref Range | Performed | Pathologist | | | | | At | Signature | + + + + + + | VENTRICULAR | 76 | BPM | [facility] | | | RATE | | | OF | | | | | | CARDIOLOGY | | + + + + + + | ATRIAL RATE | 76 | BPM | [facility] | | | | | | OF | | | | | | CARDIOLOGY | | + + + + + + | P-R | 114 | ms | [facility] | | | INTERVAL | | | OF | | | | | | CARDIOLOGY | | + + + + + + | QRS | 72 | ms | [facility] | | | DURATION | | | OF | | | | | | CARDIOLOGY | | + + + + + + | QT | 398 | ms | [facility] | | | | | | OF | | | | | | CARDIOLOGY | | + + + + + + | QTC | 447 | ms | [facility] | | | | | | OF | | | | | | CARDIOLOGY | | + + + + + + | P AXIS | 29 | degrees | [facility] | | | | | | OF | | | | | | CARDIOLOGY | | + + + + + + | R AXIS | 39 | degrees | [facility] | | | | | | OF | | | | | | CARDIOLOGY | | + + + + + + | T AXIS | 73 | degrees | [facility] | | | | | | OF | | | | | | CARDIOLOGY | | + + + + + + | EKG | Normal sinus | | [facility] | | | DIAGNOSIS | rhythmNormal | | OF | | | | ECGConfirmed by | | CARDIOLOGY | | | | MAIDA CASTELLANO ([id number]) on | | | | | | 11/24/2012 12:00:04 AM | | | | + + + + + + + + | Specimen | + + | | + + + + + | Narrative | Performed At | + + + | Please click | [facility] OF | | on view image for the detailed interpretation from [facility] results. | CARDIOLOGY | + + + + + | Procedure Note | + + | Interface, Cardiology Results - 11/24/2012 12:00 AM PDT Please click on view image | | for the detailed interpretation from [email or web address] results. | + + + + + + + | Performing | Address | City/State/Zipcode | Phone Number | | Organization | | | | + + + + + | [facility] DEPT OF | [address] | [place], [place] | | | CARDIOLOGY | [address] | [address] | | + + + + + HEMOGLOBIN A1C, POC (11/22/2012 4:19 PM PDT) + +---------+ + + + | Component | Value | Ref Range | Performed | Pathologist | | | | | At | Signature | + +---------+ + + + | HEMOGLOBIN | 5.8 (H) | 4.0 - 5.7 % | [facility] - | | | A1C,POC | | | [facility] | | | | | | [place] | | | | | | OF CARE | | | | | | TESTS | | + +---------+ + + + + + | Specimen | + + | Blood | + + + + + + + | Performing | Address | City/State/Zipcode | Phone Number | | Organization | | | | + + + + + | [facility] | [address] | [place], [place] | | | [facility] | [facility] | [address] | | | TESTS | | | | + + + + + documented in this encounter Visit Diagnoses + + | Diagnosis | + + | Pre-op evaluation - Primary Preoperative examination, unspecified | + + | GERD (gastroesophageal reflux disease) Esophageal reflux | + + | Cholesteatoma of middle ear | + + documented in this encounter
--- OUTSIDE RECORDS SUMMARY | ~2019-10-27 | XMS | Encounter Summary ---
Demographics + + + | Address | [address] | | | [place] [address] | + + + | Home Phone | | + + + | Preferred Language | Unknown | + + + | Marital Status | | + + + | Adventism Affiliation | [id number] | + + + | Race | Unknown | + + + | Ethnic Group | Unknown | + + + Author + + + | Author | [facility] | | | and [place] | + + + | Organization | [facility] | | | and [facility] [...] Team Providers + +------+ + | Care Odd Piece Checker Name | Role | Phone | + +------+ + | George Lynch | PCP | | | MD | | | + +------+ + Reason for Visit Service/Procedure (Routine) +--------+--------+ + + + + | Status | Reason | Specialty | Diagnoses / | Referred By | Referred To | | | | | Procedures | Contact | Contact | +--------+--------+ + + + + | Closed | | Radiology | Diagnoses | | [facility] | | | | | Lumbar | Coleman, | [address] | | | | | spondylosis | Denis Warren MD | Yoon Nettles, | | | | | Procedures | [address] | [place] | | | | | [place] | [address] [place] | [address] | | | | | DX/THER AGNT | [place], [place] | Phone: | | | | | [place] | [address] | [phone] | | | | | FACET JOINT, | Phone: | Fax: | | | | | LUMBAR/SAC, | [phone] | [phone] | | | | | 1ST LEVEL | Fax: | | | | | | [place] | [phone] | | | | | | DX/THER AGNT | | | | | | | [place] | | | | | | | FACET JOINT, | | | | | | | LUMBAR/SAC, | | | | | | | 2ND LEVEL | | | | | | | [place] | | | | | | | TRIAMCINOLON | | | | | | | E ACET INJ | | | | | | | NOS, 10 MG | | | | | | | Bilat. | | | | | | | L4-L5, L5-S1 | | | | | | | Facet | | | +--------+--------+ + + + + Encounter Details +--------+ + + + + | Date | Type | Department | Care Team | Description | +--------+ + + + + | 04/21/ | Hospital | [facility] | Sunny Garcia, | Lumbar spondylosis | | 2018 | Encounter | MED CTR XRAY [address] | PA-C [address] | | | | | [place] | [address] [place] | | | | | [place] [address] | [place] [address] | | | | | [phone] | [phone] | | | | | | | | | | | | [employer], [facility] | | | | | | [place] | | +--------+ + + + + [...] this encounter Last Filed Vital Signs + +---------+ + + | Vital Sign | Reading | Time Taken | Comments | + +---------+ + + | Blood Pressure | 124/59 | 04/21/2018 3:31 PM | | | | | PST | | + +---------+ + + | Pulse | 80 | 04/21/2018 3:31 PM | | | | | PST | | + +---------+ + + | Temperature | - | - | | + +---------+ + + | Respiratory Rate | - | - | | + +---------+ + + | Oxygen Saturation | - | - | | + +---------+ + + | Inhaled Oxygen | - | - | | | Concentration | | | | + +---------+ + + | Weight | - | - | | + +---------+ + + | Height | - | - | | + +---------+ + + | Body Mass Index | - | - | | + +---------+ + + documented in this encounter Medications at Time of Discharge [...] + + + +---------+ + + | MELATONIN PO | Take by mouth. | | 0 | | | | | | | | | 9 | + + + +---------+ + + documented as of this encounter Plan of Treatment Not on filedocumented as of this encounter Procedures + +--------+ + + + | Procedure Name | Priori | Date/Time | Associated Diagnosis | Comments | | | ty | | | | + +--------+ + + + | FL FACET INJECTION | Routin | 04/21/2018 | Lumbar spondylosis | Results for this | | LUMBAR SACRAL | e | 3:04 PM | | procedure are in the | | | | PST | | results section. | + +--------+ + + + documented in this encounter Results FL Facet Injection Lumbar Sacral (04/21/2018 3:04 PM PST) + + | Specimen | + + | | + + + + -+ | Narrative | Performed At | + + -+ | | [facility] | | 04/21/2018Bilateral Lumbar Facet Steroid Injections Diagnosis: Lumbar | | | Spondylosis ICD-10 Code M47.816 Maritza Malone presents to the | | | fluoroscopy suite for fluoroscopically-guided bilateral L4-L5 and | | | L5-S1 facet injections as part of conservative management for chronic | | | pain with lumbar spondylosis. After informed consent was obtained, the | | | patient laid in the prone position on the fluoroscopy table. The | | | areas were identified under fluoroscopic guidance. The areas were | | | prepped and draped in sterile fashion. A 25-gauge, 1.5-inch needle was | | | inserted into each region and approximately 3 mL of buffered 1% | | | lidocaine was infused. Then, a 22-gauge spinal needle was inserted | | | into the superior portion of each facet under fluoroscopic guidance. | | | Confirmation into the joint spaces was obtained with infusion of | | | approximately 1 mL of Omnipaque contrast which showed outline of the | | | facet joints. Then, a combination of 2 mL of 1% lidocaine and 2 mL of | | | 40 mg/mL triamcinolone was infused divided between the 4 joints. The | | | patient tolerated the procedure well without complications. Pre- and | | | post-procedure blood pressures were stable. The patient was given | | | verbal as well as written follow-up instructions. Prior to the start | | | of the procedure, the following were performed and/or verified, | | | including correct patient identity, correct site/side marked and | | | visible, agreement on the procedure to be done, correct patient | | | positioning and an accurate procedure consent form. Any safety | | | precautions based on clinical history and/or medication use have been | | | addressed. I personally performed the procedure above. Estimated blood | | | loss: MinimalComplications: NoneFindings: As expectedAnesthesia: | | | Local 1% Lidocaine | | |positioning and an accurate procedure consent form. Any safety precautions | | |based on clinical history and/or medication use have been addressed. I | | |personally performed the procedure above. | | | | | |Estimated blood loss: Minimal | | |Complications: None | | |Findings: As expected | | |Anesthesia: Local 1% Lidocaine | | + + -+ + +---------+ + + | Performing | Address | City/State/Zipcode | Phone Number | | Organization | | | | + +---------+ + + | [facility] | | | | + +---------+ + + documented in this encounter Visit Diagnoses + + | Diagnosis | + + | Lumbar spondylosis Lumbosacral spondylosis without myelopathy | + + documented in this encounter Administered Medications + +--------+ +-------+------+------+ | Medication Order | MAR | Action | Dose | Rate | Site | | | Action | Date | | | | + +--------+ +-------+------+------+ | iohexol (OMNIPAQUE 300) 300 | Given | 04/21/20 | 3 mLs | | | | mg/mL injection 3 mL 3 mL, | | 18 3:15 | | | | | Other, ONCE, 04/21/18 at | | PM PST | | | | | 1530, For 1 dose | | | | | | + +--------+ +-------+------+------+ +---+---+ | | | +---+---+ + +-------+ +-------+---+---+ | lidocaine (PF) 1% injection 2 | Given | 04/21/20 | 2 mLs | | | | mL 2 mL, Intra-articular, ONCE, | | 18 3:20 | | | | | 04/21/18 at 1530, For 1 dose | | PM PST | | | | + +-------+ +-------+---+---+ +---+---+ | | | +---+---+ + +-------+ +-------+---+ + | lidocaine buffered 0.9% | Given | 04/21/20 | 6 mLs | | Other | | injection 6 mL 6 mL, | | 18 3:10 | | | (Comment | | Intradermal, ONCE, 04/21/18 | | PM PST | | | ) | | at 1530, For 1 dose | | | | | | + +-------+ +-------+---+ + +---+---+ | | | +---+---+ + +-------+ +-------+---+---+ | triamcinolone acetonide | Given | 04/21/20 | 80 mg | | | | (KENALOG-40) 40 mg/mL injection | | 18 3:20 | | | | | 80 mg 80 mg, Intra-articular, | | PM PST | | | | | ONCE, 04/21/18 at 1530, For 1 | | | | | | | dose, Shake well. Not for IV | | | | | | | use., | | | | | | + +-------+ +-------+---+---+ +---+---+ | | | +---+---+ documented in this encounter"
--- OUTSIDE RECORDS SUMMARY | ~2019-10-27 | XMS | Encounter Summary ---
Demographics + + + | Address | [address] | | | [place] [address] | + + + | Home Phone | | + + + | Preferred Language | Unknown | + + + | Marital Status | | + + + | Holiness Affiliation | CAT | + + + [...] Team Providers + +------+ + | Care Biomass Power Plant Superintendent Name | Role | Phone | + +------+ + | George Lynch MD | | + +------+ + Encounter Details +--------+--------+ + + + | Date | Type | Department | Care Team | Description | +--------+--------+ + + + | 06/29/ | Travel | | | | | 2020 | | | | | +--------+--------+ + + + Social History + +-------+ [...] | | | | | Katherine Soto [place], | | | | | | [place] [address] | | | | | | [phone] | | | | | | | | +--------+---------+ + + + documented as of this encounter Visit Diagnoses Not on filedocumented in this encounter"
--- OUTSIDE RECORDS SUMMARY | ~2019-10-27 | XMS | Encounter Summary ---
Demographics + + + | Address | [address] | | | [place] [address] | + + + | Home Phone | | + + + | Preferred Language | Unknown | + + + | Marital Status | | + + + | Pentecostal Affiliation | CAT | + + + | Race | White | + + + | Ethnic Group | or | + + + Author + + + | Author | [facility] | + + + | Organization | [facility] | + + + | [...] Team Providers + +------+ + | Care Bromination Equipment Operator Name | Role | Phone | + +------+ + PCP | Unavailable | + +------+ + Encounter Details +--------+ + + + + | Date | Type | Department | Care Team | Description | +--------+ + + + + | 06/07/ | Abstract | Otolaryngology | Otology, Ent [address] | | | 2012 | | Otology Services at | [facility] | | | | | [address] [place], [place] | | | | | [address] | [address] | | | | | Physician's | | | | | | Pavilion, [facility] floor | | | | | | [place], [place] | | | | | | [address] | | | | | | [phone] | | | +--------+ + + + [...] | | | | | Katherine Soto [place], | | | | | | [place] [address] | | | | | | [phone] | | | | | | | | +--------+---------+ + + + documented as of this encounter Visit Diagnoses Not on filedocumented in this encounter"
--- OUTSIDE RECORDS SUMMARY | ~2019-10-27 | XMS | Encounter Summary ---
Demographics + + + | Address | [address] [place] [address] | | | [place] [address] | + + + | Home Phone | | + + + | Preferred Language | Unknown | + + + | Marital Status | | + + + | Muslim Affiliation | 1041 | + + + | Race | Unknown | + + + | Ethnic Group | Unknown | + + + Author + + + | Author | [facility] | | | and Geovannyana | + + + | Organization | [facility] | | | and Geovannyana [...] Team Providers + +------+ + | Care Lumber Carrier Name | Role | Phone | + +------+ + | George Lynch | PCP | | | MD | | | + +------+ + Reason for Visit + +--------+ + | Reason | Onset | Comments | | | Date | | + +--------+ + | Results, Imaging | 01/01/ | | | | 2015 | | + +--------+ + Encounter Details +--------+ + + + + | Date | Type | Department | Care Team | Description | +--------+ + + + + | 01/01/ | Telephone | [facility] [place] | Denis Cee | Results, Imaging | | 2016 | | PHYSIATRY [address] | T, MD [address] | | | | [address] | [address] [place], [place] | | | | | [place], [place] | [address] | | | | | [address] | | | | | | [phone] | | | +--------+ + + + [...] this encounter Miscellaneous Notes Telephone Encounter - Denis Cee MD - 01/04/2016 7:45 AM PDTImaging reviewed and results noted under the result tab.Electronically signed by Denis Cee MD at 016 7:45 AM PDTTelephone Encounter - Catie Barahona - 01/02/2016 9:56 AM PDTPatient cyndie wade and she would like a call back regarding her MRI results. Please advise documented in this encounter Plan of Treatment Not on filedocumented as of this encounter Visit Diagnoses Not on filedocumented in this encounter"
--- OUTSIDE RECORDS SUMMARY | ~2019-10-27 | XMS | Encounter Summary ---
Demographics + + + | Address | [address] | | | [place] [address] | + + + | Home Phone | | + + + | Preferred Language | Unknown | + + + | Marital Status | | + + + | Sikh Affiliation | 1041 | + + + | Race | Unknown | + + + | Ethnic Group | Unknown | + + + Author + + + | Author | [facility] | | | and Geovannyana | + + + | Organization | [facility] | | | and Geovannyana [...] Team Providers + +------+ + | Care National Opelint Analyst Name | Role | Phone | + +------+ + | George Lynch | PCP | | | MD | | | + +------+ + Reason for Visit + +--------+ + | Reason | Onset | Comments | | | Date | | + +--------+ + | Patient Concerns | 11/28/ | | | | 2015 | | + +--------+ + Encounter Details +--------+ + + + + | Date | Type | Department | Care Team | Description | +--------+ + + + + | 11/28/ | Telephone | [facility] [place] | Brody, | Patient Concerns | | 2016 | | PHYSIATRY [address] | NIRANJAN [address] | | | | | [address] | [address] | | | | | [place] | [place] [address] | | | | | [address] | [phone] | | | | | [phone] | | | +--------+ + + + [...] encounter Miscellaneous Notes Telephone Encounter - Hollie Gibson, [facility] - 12/03/2015 11:03 AM PDTPatient states that s he is unable to do anything because after using her arms for approximately 15 minutes time h er arms stop working properly. She states that even after drivng the car for 15 minutes she starts having increased pains. She was informed that it is possible that she is having side effects from the gabapentin and we would recommend she discontinue taking the medication fo r a few days to see how she feels. She is currently only taking 1 tablet at night so she was advised that she can just stop taking the medication which is what she would like to do. Jose Antonio santiago was asking to discontinue the medication and then contact our office in one week if sh e continues to have adverse reaction at which time we will likely offer her a follow up visananda t. elephone Encount er - Denis Cee MD - 11/30/2015 11:54 AM PDTI doubt it had anything to do with the injections. With regard to the "trouble controlling her limbs" it could potentially be rela jose alberto to the gabapentin and she should discontinue it for a few days to see if her symptoms im prove. As for the discomfort I would need more information to figure out what that is all about. It wouldn't hurt for her to have a follow-up if that continues. elephone Encounter - Hollie Gibson CMA - 11/29/2015 12:08 PM PDTDrQuincy Cee patient received trigger point injections on 04/2016 with Yari as well as a prescription for gabapentin. Do you think either one of the se could explain her symptoms or would you recommend she get a follow up visit?Electronicall y signed by Hollie Gibson CMA at 11/29/2015 12:10 PM PDTTelephone Encounter - Catie Barahona - 11/29/2015 11:43 AM PDTPatient states that she has been having trouble controlli ng her limbs and also having discomfort. She is very concerned and doesn't know if it might have to do with her medications or injections. Electronically signed by Catie hernandez 11/29/2015 11:45 AM PDTdocumented in this encounter Plan of Treatment Not on filedocumented as of this encounter Visit Diagnoses Not on filedocumented in this encounter
--- OUTSIDE RECORDS SUMMARY | ~2019-10-27 | XMS | Encounter Summary ---
Demographics + + + | Address | [address] | | | [place] [address] | + + + | Home Phone | | + + + | Preferred Language | Unknown | + + + | Marital Status | | + + + | Sabianism Affiliation | CAT | + + + | Race | White | + + + | Ethnic Group | or | + + + Author + + + | Author | [facility] | + + + | Organization | [facility] | + + + | Address [...] Team Providers + +------+ + | Care Plastics Design Engineer Name | Role | Phone | + [...] | Medicine Clinic at | [address] | (Primary Dx); GERD | | | | MPV Day | [address] [facility] | (gastroesophageal | | | | Stay [address] | [place] [address] | reflux disease); | | | | [address] | [phone] | 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 Surgery Check in Locations Admitting [facility], ninth floor [facility] Day Stay Unit - [facility], 4th floor Room 4518 [facility] Day Stay [facility], fourth floor I Surgery Unit [facility], sixth floor Surgery Check in Time: The [...] it is after office hours, call the [facility] single ending machine operator at [phone] and ask them to page him or h er. Preparing For Your Surgery Video -- 7 minutes of instructions! Access the [facility] website [email or web address] --> POPULAR RESOURCES --> Patient Guide --> Preparing for your Visit or Surgery --> "Preparing for Your Surgery" video link documented in this encounter Progress Notes Anna Santos NP - 11/22/2012 3:51 PM PDTFormatting of this note might be different from t he original. PREOPERATIVE CONSULT NOTE Consulting Provider: ANNA SANTOS NP Referring Physician: Dr. Lina Ferreira Primary Care Provider: George Lynch MD Reason [...] further investigation and manageme nt. A. Acute OK within 7 days: no B. Unstable angina/Recent OK (7- 30 days): no C. Decompensated CHF: [...] to this patient's care. ANNA SANTOS NP [facility] [address] [place] [id number] I spent 20 minutes with the [...] | | | | | Katherine Soto [place], | | | | | | [place] [address] | | | | | | [phone] | | | | | | | [...] view image for the detailed interpretation from [employer] results. | CARDIOLOGY | + + + + + | Procedure Note | + + | Interface, Cardiology Results - 11/24/2012 12:00 AM PDT Please click on view image | | for the detailed interpretation from [employer] results. | + + + + + + + | Performing | Address | City/State/Zipcode | Phone Number | | Organization | | | | + + + + + | [facility] DEPT OF | [address] | [place], [place] | | | CARDIOLOGY | [address] | [address] | | + + + + + [...] [place] | [address] | [place], [place] | | | [facility] | [facility] | [address] | | | TESTS | | | [...]
--- OUTSIDE RECORDS SUMMARY | ~2019-10-27 | XMS | Encounter Summary ---
Demographics + + + | Address | [address] | | | [place] [address] | + + + | Home Phone | | + + + | Preferred Language | Unknown | + + + | Marital Status | | + + + | Tenriism Affiliation | CAT | + + + | Race | White | + + + | Ethnic Group | or | + + + Author + + + | Author | [facility] | + + + | Organization | [facility] | + + + | [...] Team Providers + +------+ + | Care Local Area Network Systems Adminstrator Name | Role | Phone | + +------+ + | George Lynch MD | PCP | | + +------+ + Reason for Visit + + + | Reason | Comments | + + + | Medical Eye | | | Examination | | + + + Encounter Details +--------+---------+ + + + | Date | Type | Department | Care Team | Description | +--------+---------+ + + + | 06/29/ | Office | [facility] | Christiane Marie | Conjunctival | | 2020 | Visit | [facility]hthalmol | MD Osvaldo [address] | pigmentations, left | | | | ogy at [facility] [address] | (Primary Dx); | | | | [address] Mailcode: | [place], [place] | Posterior vitreous | | | | [address] | [address] | detachment, left | | | | [facility], | [phone] | eye; Dry eyes, | | | | Building | | bilateral | | | | Floor [place], [place] | | | | | | [address] | | | | | | [phone] | | | +--------+---------+ + + + [...] of this encounter Patient Instructions Patient Instructions Christiane Marie MD - 06/29/2019 1:20 PM PSTDry Eyes: 1. Preservative-free artificial tears (ie Refresh or Systane) Use minimum of 4 times per day on a schedule, then more if feeling burning or if doing visu ally demanding work (outside work, computer, watching TV, driving long distance) 2. Warm compresses x 10 min, followed by lid massage 3. Restasis 2 times per day Learning About Vitreous Detachment What is vitreous detachment? Vitreous detachment occurs when the vitreous gel in the eye pulls away (detaches) from the retina at the back of the eye. Vitreous gel is a thick fluid behind the lens of the eye. The gel helps the eye keep its sh ape. The gel is clear, so light passes through it to the retina. The retina is the nerve lay er at the back of the eye that sends images to your brain. The gel has fiber-like tissue that attaches to the retina. As you age, the vitreous gel can shrink and pull away from the retina. The fibers attached to the retina break. This is call ed vitreous detachment, or posterior vitreous detachment. It's common in older people. Being nearsighted also increases the chance of having it. What are the symptoms? The vitreous gel may pull away from the retina without causing symptoms. But the detachment can cause you to see "floaters" in your field of vision. Floaters are the tissues that sendy k when the gel pulls away from the retina. They may look like tiny specks or threads that fl oat across your vision. Vitreous detachment also can cause flashes of light in your side (peripheral) vision. What can you expect when you have detachment? Vitreous detachment usually doesn't need treatment. It's common to have some floaters. They usually don't affect your vision, although they can be annoying at times. But a sudden increase in floaters and flashes can be a sign of a seri ous problem that needs to be checked out by your eye doctor. Sometimes the vitreous pulls away so strongly from the retina that it leaves a hole in the retina or makes the retina detach from the back of the eye. Either of these problems can salma d to vision loss if not treated quickly. When should you call for help? Call your doctor now or seek immediate medical care if: You have vision changes. You see new flashes of light. Watch closely for changes in your health, and be sure to contact your doctor if: You see new or worse floaters. You do not get better as expected. Follow-up care is a cantu part of your treatment and safety. Be sure to make and go to all ap pointments, and call your doctor if you are having problems. It's also a good idea to know y our test results and keep a list of the medicines you take. Where can you learn more? To learn more about "Learning About Vitreous Detachment", log into your [employer] account at [email or web address]. You can enter C974 in the "[employer]" search box. Not on [employer]? Review the [employer] section of your After Visit Summary for directions on ho w to sign up. Current as of: November 17, 2017 Content Version: 12.1 8581-5939 [employer]. Care instructions adapted under license by [facility] [facility] [employer]. If you have questions about a medical condition or this instr uction, always ask your healthcare professional. [employer] disclaims any markus anty or liability for your use of this information. documented in this encounter Progress Notes Huang Lozoya MD - 06/29/2019 1:20 PM PSTAttending Physician Statement: I reviewed ch art notes under general supervision of resident, but did not personally examine this patient . Cosigning only. Inderjit Lozoya MD Travel Sales Consultant, Ophthalmology [facility] [address], [address] [place] [address] Christiane Pandey MD - 06/29/2019 1:20 PM PST COMPREHENSIVE OPHTHALMOLOGY PROGRESS NOTE Assessment and Plan: Exam Date: 06/29/2019 Patient:Maritza Malone ([id number]) Impression: Pigmented conjunctival lesion, left eye - 3.3 mm flat, superficial pigmented lesion on nasal bulbar conjunctiva - Unknown duration, at least 1-2 years; no known growth - Baseline photos today (06/29/19), will monitor clinically - Most likely CAM vs DALY; ddx includes conjunctival nevus vs melanoma Dry eyes, both eyes - Symptoms greater than findings on exam; however with MGD and oily tear film - Significant monocular diplopia and visual distortion during acuity testing; improved with blinking/ATs - Previously on Restasis with some relief; stopped because told by eye provider it was not working Pinguecula, both eyes - Likely contributing to dry eye symptoms - Reviewed with patient, will start with increased lubrication, UV protection PVD, left eye - Likely longstanding based on symptoms x 3-4 years; no recent flashes/floaters - Retina attached, no holes/breaks/tears Syneresis, right eye - Likely source of floaters, although no whitney PVD - Reviewed RD/RT precautions Plan: 1. Preservative-free artificial tears (ie Refresh or Systane) Use minimum of 4 times per day on a schedule, then more if feeling burning or if doing visu ally demanding work (outside work, computer, watching TV, driving long distance) 2. Warm compresses x 10 min, followed by lid massage 3. Restart Restasis 2 times per day (rx sent) 4. UV protection RTC 6 months for follow-up pigmented conjunctival lesion, repeat slit lamp photos, nDFE Christiane Marie MD Ophthalmology Resident, PGY4 [facility] Physician: Christiane Marie MD 06/29/2019 HPI:Maritza Malone ([id number]), 59 y.o. year old female from [place] : Patient presents with: Medical Eye Examination Pt here today for medical eye exam, pt said two weeks ago OD was "bloody". Having floaters like "spider web" in OU x 3-4 years, OU watering a lot. No drops . Wearing new glasses . Three weeks ago, noticed a black line in the vision. Also started having headache across br idge of eye. Noticed "bloody" appearance of nasal aspect of right eye. Consistent burning se nsation in the nasal aspect of the eyes. Previously treated with artificial tears BID 1 yea r ago, but it was not durable/longlasting relief. Tobacco use: reports that she has never smoked. She has never used smokeless tobacco. Past ocular history: No specialty comments on file. Family ocular history: Family history includes Diabetes in her father and Hypertension in her mother. See scanned intake form or preadmission data in [facility] for full Family ocular and medical his tory. Allergies: is allergic to aloe vera; latex; and penicillins. Medications: Current Outpatient Medications (Ophthalmic Medications) Medication Sig cycloSPORINE Instill 1 drop into both eyes two times daily. Current Outpatient Medications (Other) Medication Sig diphenhydrAMINE-acetaminophen Take 1 Tab by mouth as needed. omeprazole Take 1 Cap by mouth two times daily. ZINC ORAL Take 1 Tab by mouth once daily. Patient Active Problem List Diagnosis GERD (gastroesophageal reflux disease) Past Medical History: Diagnosis Date GERD (gastroesophageal reflux disease) Other general symptoms(780.99) has a past surgical history that includes rotator cuff repair (Left, 2003); bunionectomy ( 2009); appendectomy; mastoidectomy (1992); and bladder suspension (2010). Please see [facility] ophthalmology module for exam information. Assessment and Plan is now at the top of the note. Physician: Christiane Marie MD documented in thi s encounter Plan of Treatment +--------+---------+ + + + | Date | Type | Specialty | Care Team | Description | +--------+---------+ + + + | 12/29/ | Office | Ophthalmology | Martha Savage MD | | | 2019 | Visit | | [address] | | | | | | [address] [place], | | | | | | [place] [address] | | | | | | [phone] | | | | | | | | +--------+---------+ + + + documented as of this encounter Procedures + +--------+ + + + | Procedure Name | Priori | Date/Time | Associated Diagnosis | Comments | | | ty | | | | + +--------+ + + + | SLIT LAMP PHOTOS | Routin | 06/29/2019 | Conjunctival | Results for this | | | e | 3:31 PM | pigmentations, left | procedure are in the | | | | PST | | results section. | + +--------+ + + + documented in this encounter Results SLIT LAMP PHOTOS (06/29/2019 3:31 PM PST) + + + | Narrative | Performed At | + + + | Baseline | [facility] | + + + + + + + + | Performing | Address | City/State/Zipcode | Phone Number | | Organization | | | | + + + + + | [facility] | [address] | [place] [address] | | | [place] | [place]. | | | + + + + + documented in this encounter Visit Diagnoses + + | Diagnosis | + + | Conjunctival pigmentations, left - Primary | + + | Posterior vitreous detachment, left eye Vitreous degeneration | + + | Dry eyes, bilateral Tear film insufficiency, unspecified | + + documented in this encounter
--- OUTSIDE RECORDS SUMMARY | ~2019-10-27 | XMS | Encounter Summary ---
Demographics + + + | Address | [address] | | | [place] [address] | + + + | Home Phone | | + + + | Preferred Language | Unknown | + + + | Marital Status | | + + + | Nondenominational Affiliation | 1041 | + + + | Race | Unknown | + + + | Ethnic Group | Unknown | + + + Author + + + | Author | [facility] | | | and Geovannyana | + + + | Organization | [facility] | | | and Geovannyana [...] Team Providers + +------+ + | Care Administration Vice President Name | Role | Phone | + +------+ + PCP | Unavailable | + +------+ + Encounter Details +--------+ + + + + | Date | Type | Department | Care Team | Description | +--------+ + + + + | 01/14/ | Abstract | [place] [facility] | DATA MIGRATION LALA | | | 2011 | | Conversion Location | SR | | | | | [facility] | | | | | | [place], [place] | | | | | | [address] | | | | | | [phone] | | | +--------+ + + + [...] + + + | Blood Pressure | 112/70 | 02/20/2010 12:00 AM | | | | | PDT | | + + + + + | Pulse | - | - | | + + + + + | Temperature | - | - | | + + + + + | Respiratory Rate | - | - | | + + + + + | Oxygen Saturation | - | - | | + + + + + | Inhaled Oxygen | - | - | | | Concentration | | | | + + + + + | Weight | 62.6 kg (138 lb) | 05/02/2010 12:00 AM | | | | | PST | | + + + + + | Height | 152.4 cm (5') | 02/20/2010 12:00 AM | | | | | PDT | | + + + + + | Body Mass Index | 26.95 | 02/20/2010 12:00 AM | | | | | PDT | | + + + + + documented in this encounter Plan of Treatment Not on filedocumented as of this encounter Visit Diagnoses Not on filedocumented in this encounter"
--- OUTSIDE RECORDS SUMMARY | ~2019-10-27 | XMS | Encounter Summary ---
Demographics + + + | Address | [address] | | | [place] [address] | + + + | Home Phone | | + + + | Preferred Language | Unknown | + + + | Marital Status | | + + + | Buddhism Affiliation | 1041 | + + + | Race | Unknown | + + + | Ethnic Group | Unknown | + + + Author + + + | Author | [facility] | | | and Geovannyana | + + + | Organization | [facility] | | | and Geovannyana [...] Team Providers + +------+ + | Care Guest Service Representative Name | Role | Phone | + +------+ + PCP | Unavailable | + +------+ + Encounter Details +--------+ + + + + | Date | Type | Department | Care Team | Description | +--------+ + + + + | 06/22/ | Hospital | [facility] | Geraldine Turner MD | Hemorrhage of | | 1996 - | Encounter | [facility] | | gastrointestinal | | | | CLINICAL DECISION | | tract, unspecified | | 06/23/ | | [address] | | | | 1996 | | [place] | | | | | | [address] | | | | | | [phone] | | | +--------+ + + + [...] filedocumented as of this encounter Visit Diagnoses + + | Diagnosis | + + | Hemorrhage of gastrointestinal tract, unspecified | + + documented in this encounter"
--- OUTSIDE RECORDS SUMMARY | ~2019-10-27 | XMS | Encounter Summary ---
Demographics + + + | Address | [address] [address] | | | [place] [address] | + + + | Home Phone | | + + + | Preferred Language | Unknown | + + + | Marital Status | | + + + | Anabaptism Affiliation | CAT | + + + | Race | White | + + + | Ethnic Group | or | + + + Author + + + | Author | [facility] | + + + | Organization | [facility] | + + + | Address | Unknown | + + + | Phone | Unavailable | + + + Support + + + + + | Name | Relationship | Address | Phone | + + + + + | Golden Malone | [place] | [place] | | + + + + + Care Team Providers + +------+ + | Care Museum Or Zoo Director Name | Role | Phone | + [...] | | | | Ambulatory Surgery | [place], [place] | | | | | Admitting Desk | [address] | | | | | Located on the [facility] | [phone] | | | | | floor, Room [facility] | | | | | | [place], [place] | Jorge Whyte MD | | | | | [address] | [address] | | | | | | [place], | | | | | | [place] [address] | | | | | | [phone] | | | | | | | [...] | | | | | [place], | | | | | | [place] [address] | | | | | | [phone] | | | | | | | [...]
--- OUTSIDE RECORDS SUMMARY | ~2019-10-27 | XMS | Encounter Summary ---
Demographics + + + | Address | [address] | | | [place] [address] | + + + | Home Phone | | + + + | Preferred Language | Unknown | + + + | Marital Status | | + + + | Taoism Affiliation | CAT | + + + | Race | White | + + + | Ethnic Group | or | + + + Author + + + | Author | [facility] | + + + | Organization | [facility] | + + + | Address [...] Team Providers + +------+ + | Care Nursing Director Name | Role | Phone | [...] +--------+--------+ + + + + Encounter Details +--------+---------+ + + + | Date | Type | Department | Care Team | Description | +--------+---------+ + + + | 11/23/ | Surgery | [address] | Anupama Naranjo | TYMPANOPLASTY | | 2012 | | CAR[facility]ano | MD Kelvin [address] | WITHOUT MASTOID | | | | [facility] | Buddy Murphy | | | | | Ambulatory Surgery | | | | | | Admitting Desk | [address] | | | | | Located on the [facility] | [phone] | | | | | floor, Room [facility] | | | | | | | | | | | | [address] | | | +--------+---------+ + + + [...] + + + documented in this encounter Discharge Instructions Instructions Anabel Macedo RN - 11/23/2012Please use ibuprofen and tylenol for pain. Resume your normal diet. It is okay to resume normal activities. No special wound care is needed. Things that should prompt you to call your surgeon: Increasing pain that is sustained, prol onged significant bleeding, increasing dizziness, concern regarding infection, swelling gett ing worse not better. If you have questions it is always better to call our office to get yo ur questions answered. [phone] during business hours [phone] after hours and weekends or holidays [facility] After EAR SURGERY Follow the guidelines below. Call your doctor if you notice any unusual symptoms. Remember : You are under the influence of medication. Do not drive, drink alcoholic beverages, sign legal documents or make major decisions during the next 24 hours. WOUND CARE q Do not remove your dressing. Your doctor will do it q q ACTIVITY q . q You may wash your hair in 4 days. Wash with your head tipped back. Do NOT get water in your ears. Do NOT: Get water in your ears Blow your nose Sneeze Lift or strain. If you are constipated, take a laxative Participate in sports DIET and MEDICATION Eat your normal diet and take your usual medicines unless told otherwise by your doctor. CALL YOUR DOCTOR IF: Call your doctor right away if you have any of the following: Fever above 101 Signs of infection (foul smelling drainage, increasing pain) Increased pain not relieved by medications Excessive bleeding HOW TO REACH YOUR DOCTOR Thursday from 8:00 4:30, call Otolaryngology Clinic [phone]. After hours, weekend and holidays call the Hospital Information Security Analyst at [phone]. Ask for them to page your doctor. Your doctor is Dr._Ahn Ferreira___ RETURN APPOINTMENT Date__12/16___ Time [address]__ENT clinic____ _x___ Already pre-scheduled call the clinic if you need to cancel or reschedule your appointment. documented in this encounter Medications at Time of Discharge + + + +---------+ + + | Medication | Sig | Dispensed | Refills | Start | End Date | | | | | | Date | | + + + +---------+ + + | | Take 1 Tab by mouth | | 0 | | | | diphenhydrAMINE-acet | as needed. | | | | | | aminophen (TYLENOL | | | | | | | PM EXTRA STRENGTH) | | | | | | | 25-500 mg Oral | | | | | | | tablet | | | | | | + + + +---------+ + + | OMEPRAZOLE 20 mg | Take 1 Cap by mouth | | 0 | 09/01/19 | | | Oral capsule,delayed | two times daily. | | | 13 | | | release(DR/EC) | | | | | | + + + +---------+ + + | ZINC ORAL | Take 1 Tab by mouth | | 0 | | | | | once daily. | | | | | + [...] | | | | | | [address] [place], | | | | | | [place] [address] | | | | | | [phone] | | | | | | | | +--------+---------+ + + + documented as of this encounter Procedures + +--------+ + + + | Procedure Name | Priori | Date/Time | Associated Diagnosis | Comments | | | ty | | | | + +--------+ + + + | PROCEDURE NOTE | Routin | 06/07/2015 | | Results for this | | | e | 9:59 PM | | procedure are in the | | | | PST | | results section. | + +--------+ + + + | OPERATION RECORD | | 12/07/2012 | | Results for this | | | | 1:48 PM | | procedure are in the | | | | PDT | | results section. | + +--------+ + + + | TYMPANOPLASTY | Electi | 11/23/2012 | Cholesteatoma of | | | | ve | 7:26 AM | middle ear | | | | Surgic | PDT | | | | | al | | | | + +--------+ + + + documented in this encounter Results PROCEDURE NOTE (06/07/2015 9:59 PM PST)OPERATION RECORD (12/07/2012 1:48 PM PDT) + + | Transcriptions | + + | Anupama Naranjo MD - 11/23/2012 1:17 PM PDT Date: 11/23/2012 | | | | Attending Surgeon: Anupama Mcpherson M.D. | | | | Signaling Project Engineer(s): Azucena Ceron MD | | | | | | Preoperative Diagnosis(es): | | 1. History of right ear cholesteatoma and chronic otitis. | | 2. Right otalgia. | | | | | | Postoperative Diagnosis(es): | | 1. History of right ear cholesteatoma and chronic otitis. | | 2. Right otalgia. | | | | | | Procedures Performed: | | Examination under anesthesia. | | | | Complications: | | None. | | | | Specimens: | | None. | | | | Drains: | | None. | | | | Disposition: | | PACU. | | | | Indications: | | Ms. Malone is a 52-year-old woman with a history of right ear cholesteatoma | | and chronic otitis. She is status post right tympanomastoidectomy in 1992. | | She presented to clinic with complaints of right ear pain, drainage. On | | examination, there was concern for an inferior cholesteatoma. She is | | therefore indicated for the above procedure. | | | | Findings: | | The area of the suspected cholesteatoma did not reveal any cholesteatoma. | | Instead, this was either myringosclerosis or potentially a displaced | | annulus, but the consistency was firm and no squamous debris was seen. | | | | Procedure: | | The patient was identified in the preoperative holding area and consent was | | confirmed present in her chart. The patient was taken to the operating | | room, placed supine on the operating room table, and local MAC was | | administered. She was given a total of 2 mL of 1% lidocaine with 1:100,000 | | epinephrine. The patient was then prepped and draped in standard sterile | | fashion. The operating microscope was brought into the field, and the ear | | was irrigated with copious warm normal saline. The entire tympanic | | membrane was inspected, and the area of the suspected cholesteatoma was | | seen inferiorly. This was probed using the Stevens needle and | | ( ) knife, but was not consistent with cholesteatoma. A | | piece of Gelfoam soaked in epinephrine was applied over the area, and the | | case was completed. The patient was turned back to the anesthesiologist | | and transported to the PACU in stable condition. At the end of the case, | | all counts were correct. Dr. Anupama Mcpherson was present and participated | | in the entire procedure. | | | | | | Azucena Ceron MD | | | | | | Anupama Mcpherson M.D. | | | | LIZA / ERENDIRA | | [id number] / [id number] / [id number] / | | | | | + + documented in this encounter Visit Diagnoses + + | Diagnosis | + + | Cholesteatoma of middle ear | + + documented in this encounter Administered Medications + +--------+ +--------+------+------+ | Medication Order | MAR | Action | Dose | Rate | Site | | | Action | Date | | | | + +--------+ +--------+------+------+ | acetaminophen (aka TYLENOL) | Given | 11/24/19 | 650 mg | | | | tablet 650 mg 650 mg, oral, | | 13 8:53 | | | | | EVERY 4 HOURS NEEDED, Starting | | AM PDT | | | | | 11/23/12 at 0809, Until Tue | | | | | | | 11/23/12 at 1646, mild pain | | | | | | + +--------+ +--------+------+------+ +---+---+ | | | +---+---+ + +-------+ +------+---+--------+ | EPINEPHrine (aka ADRENALIN) | Given | 11/24/19 | 3 mL | | Right | | injection INTRAPROCEDURE PRN, | | 13 7:54 | | | Ear | | Starting 11/23/12 at 0754, | | AM PDT | | | | | Until Thu11/23/12 at 0814 | | | | | | + +-------+ +------+---+--------+ +---+---+ | | | +---+---+ + +-------+ +------+---+--------+ | lidocaine-EPINEPHrine (aka | Given | 11/24/19 | 1 mL | | Right | | XYLOCAINE WITH EPINEPHRINE) 1 | | 13 7:54 | | | Ear | | %-1:100,000 injection | | AM PDT | | | | | INTRAPROCEDURE PRN, Starting Thu | | | | | | | 11/23/12 at 0754, Until Tue | | | | | | | 11/23/12 at 0814 | | | | | | + +-------+ +------+---+--------+ +---+---+ | | | +---+---+ + +---------+ +------+---+---+ | ondansetron (aka ZOFRAN) | New Bag | 11/24/19 | 4 mg | | | | injection 4 mg 4 mg, | | 13 8:42 | | | | | intravenous, POSTPROCEDURE PRN, 1 | | AM PDT | | | | | dose, Starting 11/23/12 at | | | | | | | 0759, Until e 11/23/12 at 0842, | | | | | | | nausea/vomiting | | | | | | + +---------+ +------+---+---+ + +---+ | | | + +---+ | ondansetron (aka ZOFRAN) | | | injection 1 dose, Starting Tue | | | 11/23/12 at 0839, Until Tue | | | 11/23/12 at 0842 | | + +---+ | | | + +---+ + +---------+ +---------+---+---+ | promethazine (aka PHENERGAN) | New Bag | 11/24/19 | 12.5 mg | | | | injection 12.5-25 mg 12.5-25 mg, | | 13 9:14 | | | | | intravenous, EVERY 4 HOURS | | AM PDT | | | | | NEEDED, Starting 11/23/12 at | | | | | | | 0910, Until 11/23/12 at 1646, | | | | | | | nausea/vomiting | | | | | | + +---------+ +---------+---+---+ + +---+ | | | + +---+ | promethazine (aka PHENERGAN) | | | injection 1 dose, Starting Tue | | | 11/23/12 at 0910, Until Tue | | | 11/23/12 at 0914 | | + +---+ | | | + +---+ documented in this encounter"
--- OUTSIDE RECORDS SUMMARY | ~2019-10-27 | XMS | Encounter Summary ---
Demographics + + + | Address | [address] | | | [place] [address] | + + + | Home Phone | | + + + | Preferred Language | Unknown | + + + | Marital Status | | + + + | Yazidism Affiliation | 1041 | + + + | Race | Unknown | + + + | Ethnic Group | Unknown | + + + Author + + + | Author | [facility] | | | and [place] | + + + | Organization | [facility] | | | and Geov[facility]ana [...] Team Providers + +------+ + | Care Registered Dietician Name | Role | Phone | + +------+ + | George Lynch | PCP | | | MD | | | + +------+ + Reason for Referral Diagnostic/Screening (Routine) +--------+--------+ + + + + | Status | Reason | Specialty | Diagnoses / | Referred By | Referred To | | | | | Procedures | Contact | Contact | +--------+--------+ + + + + | Closed | | Radiology | Diagnoses | | [facility] | | | | | Neck pain | [place], | [address] | | | | | Paresthesias | Denis Warren MD | [place], | | | | | /numbness | [address] | [place] | | | | | Procedures | [place] | [address] | | | | | MRI Cervical | [place], [place] | Phone: | | | | | Spine wo | [address] | [phone] | | | | | Contrast | Phone: | Fax: | | | | | MRI called | [phone] | [phone] | | | | | x1 | Fax: | | | | | | | [phone] | | +--------+--------+ + + + + Reason for Visit Diagnostic/Screening (Routine) +--------+--------+ + + + + | Status | Reason | Specialty | Diagnoses / | Referred By | Referred To | | | | | Procedures | Contact | Contact | +--------+--------+ + + + + | Closed | | Radiology | Diagnoses | | [facility] | | | | | Neck pain | [place], | [address] | | | | | Paresthesias | Denis Warren MD | [place], | | | | | /numbness | [address] | [place] | | | | | Procedures | [place] | [address] | | | | | MRI Cervical | [place], [place] | Phone: | | | | | Spine wo | [address] | [phone] | | | | | Contrast | Phone: | Fax: | | | | | MRI called | [phone] | [phone] | | | | | x1 | Fax: | | | | | | | [phone] | | +--------+--------+ + + + + Encounter Details +--------+ + + + + | Date | Type | Department | Care Team | Description | +--------+ + + + + | 12/26/ | Hospital | [facility] | Denis Cee | Neck pain; | | 2015 | Encounter | [facility] MRI [address] T, [address] | Paresthesias/numbnes | | | | [address] [place], | [place], [place] | s | | | | [place] [address] | [address] | | | | | [phone] | | | +--------+ + + + [...] + + + +---------+ + + | DULoxetine | Take 1 capsule by | 30 | 2 | 12/16/19 | | | (CYMBALTA) [address] | mouth Daily. | capsule | | 16 | 8 | | capsule | | | | | | + + + +---------+ + + documented as of this encounter Plan of Treatment Not on filedocumented as of this encounter Procedures + +--------+ + + + | Procedure Name | Priori | Date/Time | Associated Diagnosis | Comments | | | ty | | | | + +--------+ + + + | MRI CERVICAL SPINE | Routin | 12/27/2015 | Neck pain | Results for this | | WO CONTRAST | e | 3:02 PM | Paresthesias/numbnes | procedure are in the | | | | PDT | s | results section. | + +--------+ + + + documented in this encounter Results MRI Cervical Spine wo Contrast (12/27/2015 3:02 PM PDT) + + | Specimen | + + | | + + + + + | Narrative | Performed At | + + + | MRI CERVICAL SPINE WO CONTRAST. 12/27/2015 3:02 PM HISTORY: | [facility] | | Chronic neck and arm pain and paresthesias. COMPARISON: Cervical | [facility] | | spine x-ray 11/13/2015 TECHNIQUE: Multiplanar, multisequence MRI | [facility] | | images of the cervical spine were obtained without IV contrast. | - IMAGING | | FINDINGS: The visible posterior fossa structures are within normal | | | limits. The craniocervical relationship is maintained. The | | | lateral masses of C1 and C2 are well aligned. No evidence of | | | fracture of the odontoid. Vertebral body alignment is maintained. | | | Vertebral body heights are maintained. Bone marrow signal is within | | | normal limits for the patient's age. The disc heights are within | | | normal limits. On axial imaging: C2-3: Tiny posterior central | | | disc protrusion that minimally contours the thecal sac, without | | | significant narrowing. No neural foraminal narrowing. C3-4: | | | Tiny posterior central disc protrusion that minimally contours the | | | thecal sac without significant narrowing. No neural foraminal | | | narrowing. C4-5: Thecal sac and neural foramina within normal | | | limits. C5-6: Thecal sac and neural foramina within normal | | | limits. C6-7: Small posterior disc bulge that mildly contours | | | the thecal sac, without significant narrowing of the thecal sac. No | | | neural foraminal narrowing. C7-T1: Thecal sac and neural | | | foramina within normal limits. The cervical cord is normal in | | | signal and caliber. The prevertebral and paraspinal structures are | | | within normal limits. The visualized intrathoracic structures are | | | unremarkable. IMPRESSION - Tiny posterior central disc | | | protrusions at C2-3 and C3-4 without significant narrowing of the | | | thecal sac or neural foramina at those levels. Small posterior disc | | | bulge at C6-7, without significant narrowing of the thecal sac or | | | neural foraminal narrowing. Dictated and Signed by: Abilio | | | MD Nancy Electronically signed: 12/27/2015 5:08 PM | | + + + + + | Procedure Note | + + | Prashanth, Rad Results In - 12/27/2015 5:11 PM PDT MRI CERVICAL SPINE WO CONTRAST. | | 12/27/2015 3:02 PMHISTORY: Chronic neck and arm pain and paresthesias.COMPARISON: | | Cervical spine x-ray 11/13/2015TECHNIQUE: Multiplanar, multisequence MRI images of the | | cervical spine wereobtained without IV contrast.FINDINGS:The visible posterior fossa | | structures are within normal limits. Thecraniocervical relationship is maintained. | | The lateral masses of C1 and C2 arewell aligned. No evidence of fracture of the | | odontoid.Vertebral body alignment is maintained.Vertebral body heights are | | maintained.Bone marrow signal is within normal limits for the patient's age.The disc | | heights are within normal limits.On axial imaging:C2-3: Tiny posterior central disc | | protrusion that minimally contours the thecalsac, without significant narrowing. No | | neural foraminal narrowing.C3-4: Tiny posterior central disc protrusion that minimally | | contours the thecalsac without significant narrowing. No neural foraminal | | narrowing.C4-5: Thecal sac and neural foramina within normal limits.C5-6: Thecal sac | | and neural foramina within normal limits.C6-7: Small posterior disc bulge that mildly | | contours the thecal sac, withoutsignificant narrowing of the thecal sac. No neural | | foraminal narrowing.C7-T1: Thecal sac and neural foramina within normal limits.The | | cervical cord is normal in signal and caliber.The prevertebral and paraspinal structures | | are within normal limits.The visualized intrathoracic structures are | | unremarkable.IMPRESSION -Tiny posterior central disc protrusions at C2-3 and C3-4 | | without significantnarrowing of the thecal sac or neural foramina at those levels.Small | | posterior disc bulge at C6-7, without significant narrowing of the thecalsac or neural | | foraminal narrowing.Dictated and Signed by: Abilio Cruz MD Electronically signed: | | 12/27/2015 5:08 PM | |sac without significant narrowing. No neural foraminal narrowing. | | | |C4-5: Thecal sac and neural foramina within normal limits. | | | |C5-6: Thecal sac and neural foramina within normal limits. | | | |C6-7: Small posterior disc bulge that mildly contours the thecal sac, without | |significant narrowing of the thecal sac. No neural foraminal narrowing. | | | |C7-T1: Thecal sac and neural foramina within normal limits. | | | |The cervical cord is normal in signal and caliber. | |The prevertebral and paraspinal structures are within normal limits. | |The visualized intrathoracic structures are unremarkable. | | | |IMPRESSION - | |Tiny posterior central disc protrusions at C2-3 and C3-4 without significant | |narrowing of the thecal sac or neural foramina at those levels. | |Small posterior disc bulge at C6-7, without significant narrowing of the thecal | |sac or neural foraminal narrowing. | | | |Dictated and Signed by: Abilio Cruz MD | | Electronically signed: 12/27/2015 5:08 PM | + + + + + + + | Performing | Address | City/State/Zipcode | Phone Number | | Organization | | | | + + + + + | [facility] | [address] | [place], [place] | [phone] | | [facility] | | [address] | | | - IMAGING | | | | + + + + + documented in this encounter Visit Diagnoses + + | Diagnosis | + + | Neck pain Cervicalgia | + + | Paresthesias/numbness Disturbance of skin sensation | + + documented in this encounter"
--- OUTSIDE RECORDS SUMMARY | ~2019-10-27 | XMS | Encounter Summary ---
Demographics + + + | Address | [address] | | | [place] [address] | + + + | Home Phone | | + + + | Preferred Language | Unknown | + + + | Marital Status | | + + + | Church Affiliation | CAT | + + + [...] Team Providers + +------+ + | Care Pre Owned Sales Consultant Name | Role | Phone | + [...] + + + + | 11/23/ | Hospital | [facility] [address] | Anupama Naranjo | | | 2012 | Encounter | [address] | MD Kelvin [address] | | | | | [facility] | Buddy [place] | | | | | Elyse Nelson | [place], [place] | | | | | (MNP/[facility]) | [address] | | | | | [place], [place] | [phone] | | | | | [address] | | | | | | [phone] | | | +--------+ + + + [...] office to get yo ur questions answered. [phone] during business hours [phone] after hours and weekends or holidays [facility] After EAR SURGERY Follow the [...] Thursday from 8:00 4:30, call Otolaryngology Clinic [phone]. After hours, weekend and holidays call the Hospital Event Staff at [phone]. Ask for them to page your doctor. Your doctor is _Hemal Ferreira___ RETURN APPOINTMENT Date____ Time __[address]__ENT clinic____ _x___ Already [...] Cap by mouth | | 0 | 04/30/20 | | | Oral capsule,delayed | two [...] | | | | | [place], | | | | | | [place] [address] | | | | | | [phone] | | | | | | | [...] Anupama Mcpherson M.D. | | | | Desk Editor(s): Azucena Ceron MD | | | | [...] Anupama Mcpherson M.D. | | | | KD / HS | | [id number] / [id number] / [phone] / | | | | | + + documented in this encounter Visit Diagnoses Not on filedocumented [...] AM PDT | | | | | Thu11/23/12 at 0809, Until Tue | | | | | | | 11/23/12 at 1646, mild pain | | | | | | + +--------+ +--------+------+------+ +---+---+ | | | +---+---+ + +---------+ +------+---+---+ | ondansetron (aka ZOFRAN) | New Bag | 11/24/19 | 4 mg | | | | injection 4 mg 4 mg, | | 13 8:42 | | | | | intravenous, POSTPROCEDURE PRN, 1 | | AM PDT | | | | | dose, Starting Thu11/23/12 at | | | | | | | 0759, Until Thu11/23/12 at 0842, | | | | | [...] | | | | | 0910, Until Thu11/23/12 at 1646, | | | | | [...]
--- OUTSIDE RECORDS SUMMARY | ~2019-10-27 | XMS | Encounter Summary ---
Demographics + + + | Address | [address] [address] | | | [place] [address] | + + + | Home Phone | | + + + | Preferred Language | Unknown | + + + | Marital Status | | + + + | Confucianist Affiliation | CAT | + + + | Race | White | + + + | Ethnic Group | or | + + + Author + + + | Author | [facility] | + + + | Organization | [facility] | + + + | [...] Team Providers + +------+ + | Care Manager Finance Name | Role | Phone | + +------+ + | George Lynch MD | PCP | | + +------+ + Reason for Referral Diagnostic Testing (Routine) +--------+--------+ + + + + | Status | Reason | Specialty | Diagnoses / | Referred By | Referred To | | | | | Procedures | Contact | Contact | +--------+--------+ + + + + | Closed | | Radiology | Diagnoses | Ferreira | Rad Ct Scan | | | | | | Anupama Mills | [facility] [address] | | | | | Cholesteatom | MD [address] | [address] | | | | | a of middle | [address] | Katherine Soto [facility] | | | | | ear Otalgia | [facility], | | | | | Procedures | Rd | 10th Floor | | | | | [address] | [place] | [place] | | | | | BENIGN | [address] | [address] | | | | | DISEASE WO | Phone: | Phone: | | | | | | [phone] | [phone] | | | | | | Fax: | Fax: | | | | | | [phone] | [phone] | +--------+--------+ + + + + Reason for Visit Diagnostic Testing (Routine) +--------+--------+ + + + + | Status | Reason | Specialty | Diagnoses / | Referred By | Referred To | | | | | Procedures | Contact | Contact | +--------+--------+ + + + + | Closed | | Radiology | Diagnoses | Ferreira | Rad Ct Scan | | | | | | Anupama Mills | [facility] [address] | | | | | Cholesteatom | MD [address] | [address] | | | | | a of [facility] | [address] | [address] [facility] | | | | | ear Otalgia | [facility], | | | | | Procedures | Rd | 10th Floor | | | | | [address] | [place], [place] | [place], [place] | | | | | BENIGN | [address] | [address] | | | | | DISEASE WO | Phone: | Phone: | | | | | | [phone] | [phone] | | | | | | Fax: | Fax: | | | | | | [phone] | [phone] | +--------+--------+ + + + + Encounter Details +--------+ + + + + | Date | Type | Department | Care Team | Description | +--------+ + + + + | 11/22/ | Hospital | Diagnostic Imaging | | | | 2012 | Encounter | Services at [facility] | | | | | | [address] | | | | | | Katherine Soto [place] | | | | | | [address] | | | | | | [place], [place] | | | | | | [address] | | | | | | [phone] | | | +--------+ + + + [...] [address] | | | | | | Kathreine Soto [place], | | | | | | [place] [address] | | | | | | [phone] | | | | | | | | +--------+---------+ + + + documented as of this encounter Procedures + +--------+ + + + | Procedure Name | Priori | Date/Time | Associated Diagnosis | Comments | | | ty | | | | + +--------+ + + + | CT [address] BENIGN | Routin | 11/22/2012 | Cholesteatoma of | Results for this | | DISEASE WO CONTRAST | e | 11:04 AM | middle ear Otalgia | procedure are in the | | | | PDT | | results section. | + +--------+ + + + documented in this encounter Results CT [place] BENIGN DISEASE WO (11/22/2012 11:04 AM PDT) + + + + + + | Component | Value | Ref Range | Performed | Pathologist | | | | | At | Signature | + + + + + + | CT [address] | Clinical information: | | | | | BENIGN | Right ear pain, | | | | | DISEASE WO | cholesteatoma. Axial and | | | | | | coronal images through | | | | | | the temporal bones. No | | | | | | studies for comparison. | | | | | | The patient is status | | | | | | post right canal wall up | | | | | | mastoidectomy. | | | | | | Themastoidectomy bowl | | | | | | is clear. The right | | | | | | mastoid tip air cells | | | | | | are opacified.The right | | | | | | tympanic membrane is | | | | | | slightly thickened. | | | | | | The middle ear is | | | | | | clear.The ossicles are | | | | | | intact. The appearance | | | | | | of the left temporal | | | | | | bone is normal.There are | | | | | | subcentimeter right | | | | | | parotid and periparotid | | | | | | normal-appearing | | | | | | lymphnodes. Evaluation | | | | | | of the cranial soft | | | | | | tissues including | | | | | | contents of the | | | | | | internalauditory canals | | | | | | is limited. There is a | | | | | | density that extends | | | | | | from the rightlower | | | | | | thalamus through the | | | | | | right side of the | | | | | | midbrain and alexandro on | | | | | | axial images. On coronal | | | | | | images it is extremely | | | | | | linear and therefore | | | | | | represents artifact. | | | | | | Impression: Status post | | | | | | right canal wall up | | | | | | mastoidectomy. | | | | | | Opacification ofright | | | | | | mastoid tip air cells. | | | | | | Attending Radiologists: | | | | | | JOSE RAMON LINCOLN MDAuthor: | | | | | | JOSE RAMON LINCOLN MD I | | | | | | have personally viewed | | | | | | this procedure/exam, | | | | | | reviewed this report, | | | | | | and madechanges to it | | | | | | where appropriate. | | | | | | Final/Electronically | | | | | | jacinda / JOSE RAMON | | | | | | LATONIA 11/22/2012 | | | | | | 14:34 PM | | | | + + + + + + + + | Specimen | + + | | + + + +---------+ + + | Performing | Address | City/State/Zipcode | Phone Number | | Organization | | | | + +---------+ + + | [facility] DEPARTMENT OF | | | | | RADIOLOGY | | | | + +---------+ + + documented in this encounter Visit Diagnoses + + | Diagnosis | + + | Cholesteatoma of middle ear | + + | Otalgia | + + documented in this encounter"
--- OUTSIDE RECORDS SUMMARY | ~2019-10-27 | XMS | Encounter Summary ---
Demographics + + + | Address | [address] [place] [address] | | | [place] [address] | + + + | Home Phone | | + + + | Preferred Language | Unknown | + + + | Marital Status | | + + + | Mandaeism Affiliation | 1041 | + + + | Race | Unknown | + + + | Ethnic Group | Unknown | + + + Author + + + | Author | [facility] | | | and Geovannyana | + + + | Organization | [facility] | | | and Geovannyana [...] Team Providers + +------+ + | Care Asbestos Brake Lining Finisher Helper Name | Role | Phone | + +------+ + | George Lynch | PCP | | | MD | | | + +------+ + Reason for Visit Diagnostic/Screening (Routine) +--------+--------+ [...] Neck pain | [place], | [address] | | | | | Paresthesias | Denis Warren MD | [place], | | | | | /numbness | [address] | [place] | | | | | Procedures | [place] | [address] | | | | | MRI Cervical | [place], [place] | Phone: | | | | | Spine wo | [address] | [phone] | | | | | Contrast | Phone: | Fax: | | | | | MRI called | [phone] | [phone] | | | | | x1 | Fax: | | | | | | | [phone] | | +--------+--------+ + + + + Encounter Details +--------+ + + + + | Date | Type | Department | Care Team | Description | +--------+ + + + + | 12/18/ | Hospital | [facility] | Denis Cee | No Show | | 2016 | Encounter | MED CTR MRI [address] | T[facility] [address] | | | | | [place], | [place], [place] | | | | | [place] [address] | [address] | | | | | [phone] | | | +--------+ + + + [...]
--- OUTSIDE RECORDS SUMMARY | ~2019-10-27 | XMS | Encounter Summary ---
Demographics + + + | Address | [address] | | | [place] [address] | + + + | Home Phone | | + + + | Preferred Language | Unknown | + + + | Marital Status | | + + + | Buddhist Affiliation | CAT | + + + | Race | White | + + + | Ethnic Group | or | + + + Author + + + | Author | [facility] | + + + | Organization | [facility] | + + + | Address [...] Team Providers + +------+ + | Care Nonprofit Director Name | Role | Phone | + +------+ + PCP | Unavailable | + +------+ + Encounter Details +--------+ + + + + | Date | Type | Department | Care Team | Description | +--------+ + + + + | 03/24/ | Transcribed | UNKNOWN DEPARTMENT | Dictation, Other | Transcribed | | 1993 | | [address] | | | | | | [address] | | | | | | [place], [place] | | | | | | [address] | | | +--------+ + + + [...] as of this encounter Progress Notes Interface, Terrazzo Layer In - 08/29/2006 1:01 AM PDT [place] [address] [place], [place] [address] [facility] March 24, 1994 CAROLE COTA MD [facility] [address] [address] RE:Kathryn Malone MR:[id number] Cota: We have seen your patient, Kathryn Malone, in our clinic twice. On her initial visit, she was given a primary diagnosis of depression and a secondary diagnosis of fibrositis. She was treated with 10 mg of amitriptyline t.i.d. After approximately two weeks, she discontinued the amitriptyline due to increased drowsiness. She returned to our clinic approximately two weeks later for her follow-up visit at which time the left-sided weakness that she complained of has decreased and the pain has also decreased. We currently feel she has a little fibrositis in the left shoulder region. We plan to treat her with amitriptyline 10 mg q day when she has muscle spasms and ibuprofen p.r.n. pain. We do not feel that we need to see her any longer in our clinic and we are sending her back to your care. Thank you for your referral. Sincerely, Jose Way M.D. Professor, Medicine Head, Division of Arthritis and Rheumatic Diseases RB:aster March 25, 1994 nterface, Terrazzo Layer In - 08/29/2006 1:01 AM PDT [place] [address] 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 She was initially treated with 10 mg of amitriptyline t.i.d., but she stopped taking it herself at 20 mg Dictation stopped here... Jose Way M.D. Professor, Medicine Head, Division of Arthritis and Rheumatic Diseases RB:thania [birth year] 1994 documented in this encounter Plan of Treatment +--------+---------+ + + + | Date | Type | Specialty | Care Team | Description | +--------+---------+ + + + | 12/29/ | Office | Ophthalmology | Martha Savage MD | | | 2020 | Visit | | [address] | | | | | | [address] [place], | | | | | | [place] [address] | | | | | | [phone] | | | | | | | | +--------+---------+ + + + documented as of this encounter Visit Diagnoses Not on filedocumented in this encounter"
--- OUTSIDE RECORDS SUMMARY | ~2019-10-27 | XMS | Encounter Summary ---
Demographics + + + | Address | [address] | | | [place] [address] | + + + | Home Phone | | + + + | Preferred Language | Unknown | + + + | Marital Status | | + + + | Druze Affiliation | CAT | + + + [...] Team Providers + +------+ + | Care Spanish Speaking Nanny Name | Role | Phone | + [...] | | | | [address] | [place], [place] | | | | | Physician's | [address] | | | | | [address], 2nd floor | [phone] | | | | | [place], [place] | | | | | | [address] | | | | | | [phone] | | | +--------+---------+ + + + [...] 11/22/2012 1:20 PM PDTThank you for choosing [facility] Department of Otol[facility]ology for your health care needs. If you need to speak to an EN T physician after normal business hours, please call [phone] and ask to have the ENT ph ysician injection machine operator paged. Qloud is a great way to contact me if you have questions in between visits. If you are n ot already signed up for Qloud there is information at the end of [...] | | | | | [address] [place], | | | | | | [place] [address] | | | | | | [phone] | | | | | | | | +--------+---------+ + + + documented as of this encounter Visit Diagnoses + + | Diagnosis | + + | Cholesteatoma of middle ear - Primary | + + documented in this encounter"
--- OUTSIDE RECORDS SUMMARY | ~2019-10-27 | XMS | Encounter Summary ---
Demographics + + + | Address | [address] | | | [place] [address] | + + + | Home Phone | | + + + | Preferred Language | Unknown | + + + | Marital Status | | + + + | Baptist Affiliation | CAT | + + + [...] Team Providers + +------+ + | Care Captain Waiter Name | Role | Phone | + +------+ + | No Pcp Per Patient | PCP | Unavailable | + +------+ + Reason for Referral [...] | | | | Anupama Mills | [facility] [address] | | | | | Cholesteatom | [address] | [address] | | | | | a of middle | [address] | [address] [facility] | | | | | ear Otalgia | [facility], | | | | | Procedures | Rd | 10th Floor | | | | | [address] | [place], [place] | [place], [place] | | | | | BENIGN | [address] | [address] | | | | | DISEASE WO | Phone: | Phone: | | | | | | [phone] | [phone] | | | | | | Fax: | Fax: | | | | | | [phone] | [phone] | +--------+--------+ + + + + Reason for Visit + + + | Reason | Comments | + + + | Ear problem | new pt here for ear eval | + + + Consultation (Routine) +--------+--------+ + + + + | Status | Reason | Specialty | Diagnoses / | Referred By | Referred To | | | | | Procedures | Contact | Contact | +--------+--------+ + + + + | Closed | | Otolaryngolog | Diagnoses | Cris | Ent Otology | | | | y | increased | George Rodas, | [facility] [address] | | | | | right ear | MD | [address] | | | | | pain hx of | [place] | Loop | | | | | Tympanoplast | FAMILY | Physician's | | | | | y | MEDICINE | [address], | | | | | | [address] | floor | | | | | | [address] | [place], [place] | | | | | | [place], | [address] | | | | | | [place] [address] | Phone: | | | | | | Phone: | [phone] | | | | | | [phone] | Fax: | | | | | | Fax: | [phone] | | | | | | [phone] | | +--------+--------+ + + + + Encounter Details +--------+---------+ + + + | Date | Type | Department | Care Team | Description | +--------+---------+ + + + | 08/02/ | Office | Otolaryngology | Anupama Naranjo | Cholesteatoma of | | 2012 | Visit | Otology Services at | T, [address] | middle ear (Primary | | | | [facility] [address] | Dx); Otalgia | | | | [address] | [place], [place] | | | | | Physician's | [address] | | | | | [address], [facility] floor | [phone] | | | | | [place], [place] | | | | | | [address] | | | | | | [phone] | | | +--------+---------+ + + + [...] Comments | + + +---------+ + | Not Asked | | | | + + +---------+ + [...] + + + | Blood Pressure | - | - | | + [...] + + + + | Weight | 65.3 kg (144 lb) | 08/02/2012 3:40 PM | | | | | PDT | | + + + + + | Height | - | - | | + + + + + | Body Mass Index | - | - | | + + + + + documented in this encounter Patient Instructions Patient Instructions Lourdes Cm MA - 08/02/2012 3:41 PM PDTThank you for choosing [facility] Department of Otolaryngology for your health care needs. If you need to speak to an EN T physician after normal business hours, please call [phone] and ask to have the ENT ph ysician environmental services worker paged. Sendio is a great way to contact me if you have questions in between visits. If you are n ot already signed up for Sendio there is information at the end of this After Visit Summary to help you get started. documented in this encounter Progress Notes Anupama Naranjo MD - 08/04/2012 1:50 PM PDTI personally interviewed the patient, dupl icated the pertinent parts of the physical examination and personally formulated the plan wi th the resident. I have reviewed, entered my findings, and agree with the above documentati on. Anupama Mcpherson MD PhD Precast Worker Otology, Neurotology & Skull Base Surgery donay Fernandez MD - 08/02/2012 4:14 PM PDT Otology New Patient Consult /History and Physical Attending: Anupama Mcpherson MD referring MD: George Lynch MD Cc: right ear pain HPI: Maritza Malone is a 52 y.o. female who is referred for evaluation of right otalgia. P atient is s/p mastoidectomy in 1992. Since that time, the patient notes persistant right ea r pain, headaches, drainage from ear, decreased vision on the right with right dry eye, tinn itus, very mild balance disturbance. Currently, the ear drains clear fluid daily. Denies f acial weakness or other otologic complaints. Patient's past medical history has been reviewed on the scanned document. see attached scanned clinic doc sheet and otology pt questionnaire that contains, med's, al lergies,H&P,PSH, PMH,FMHX,SOCHX. I have reviewed all the above PMH: No past medical history on file. Surgeries: No past surgical history on file. Rotator Cuff Mastoidectomy Bunion Appendectomy No current outpatient prescriptions on file. Not on File History Social History Marital Status: Spouse Name: N/A Number of Children: N/A Years of Education: N/A Occupational History Not on file. Social History Main Topics Smoking status: Never Smoker Smokeless tobacco: Never Used Alcohol Use: Not on file Drug Use: Not on file Sexually Active: Not on file Other Topics Concern Not on file Social History Narrative No narrative on file ROS: Otherwise negative. Denies nausea, shortness of breath, chest pain, neuropathy, diffi culty breathings difficulty swallowing, nasal obstruction. PHYSICAL EXAM: Wt 65.318 kg (144 lbs)( < 3 %ile). Alert, NAD Respirations even, unlabored. Head: Atraumatic, symmetric Neuro: grossly normal gait and coordination, no evidence of dysmetria. CN: Face symmetric all branches VII intact, HB1 bilaterally. CN 2-12 intact, EOMI, no nyst agmus. Nose: normal external anatomy Mouth/throat: oropharynx clear, normal palate elevation, tongue midline. Neck: no LAD or masses, no thyromegaly. Ears: Odonnell: goes to center Rinne: air > bone bilaterally Left otomicroscopy: EACs clear, TM intact, normal landmarks, no e/o drainage or effusion Right otomicroscopy: EACs clear, TM with 15-20% inferior monomeric TM with inferior conchis steatoma, unclear what is behind the superior TM. Audiology: Mild, right CHL. Results were discussed with the patient. Assessment and Plan Maritza Malone is a 52 y.o. female with right ear cholesteatoma and chronic otitis. The c holesteatoma is likely secondary given her prior surgery and the location. The otitis is li chel causing her ear complaints. We will plan for a transcanal tympanoplasty with middle ea r exploration and possible mastoidectomy. We will get a pre-op CT to ensure no complication s from prior mastoidectomy. - CT Scan - Schedule OR Seen and examined with Anupama Mcpherson MD who agrees Adonay Fernandez MD Resident Physician- R3 Department of Otolaryngology- Head and Neck Surgery [facility] . documented in th is encounter Plan of Treatment +--------+---------+ + + + | Date | Type | Specialty | Care Team | Description | +--------+---------+ + + + | 12/29/ | Office | Ophthalmology | Martha Savage MD | | | 2019 | Visit | | [address] | | | | | | [place], | | | | | | [place] [address] | | | | | | [phone] | | | | | | | | +--------+---------+ + + + documented as of this encounter Procedures + +--------+ + + + | Procedure Name | Priori | Date/Time | Associated Diagnosis | Comments | | | ty | | | | + +--------+ + + + | GA EAR MICROSCOPY | Routin | 08/04/2012 | Cholesteatoma of | | | EXAMINATION | e | 1:52 PM | middle ear Otalgia | | | | | PDT | | | + +--------+ + + [...] | | + +---------+ + + | [facility] DEPARTMENT OF | | | | | RADIOLOGY | | | | + +---------+ + + documented in this encounter Visit Diagnoses + + | Diagnosis | + + | Cholesteatoma of middle ear - Primary | + + | Otalgia | + + documented in this encounter"
--- OUTSIDE RECORDS SUMMARY | ~2019-10-27 | XMS | Encounter Summary ---
Demographics + + + | Address | [address] | | | [place] [address] | + + + | Home Phone [...] | [facility] | | | and [place]ov[place] | [...] Providers + +------+ + | Care Lumber Tallier Name | Role | Phone | + +------+ + | George Lynch | PCP | | | MD | | | + +------+ + Encounter Details +--------+ + + + + | Date | Type | Department | Care Team | Description | +--------+ + + + + | 12/23/ | Hospital | Day | | | | 2015 | Encounter | [facility] | | | | | | Care [address] | | | | | [place], | | | | | | [place] [address] | | | | | | [phone] | | | +--------+ + + + [...]
--- OUTSIDE RECORDS SUMMARY | ~2019-10-27 | XMS | Encounter Summary ---
Demographics + + + | Address | [address] | | | [place] [address] | + + + | Home Phone | | + + + | Preferred Language | Unknown | + + + | Marital Status | | + + + | Confucianist Affiliation | 1041 | + + + | Race | Unknown | + + + | Ethnic Group | Unknown | + + + Author + + + | Author | [facility] | | | and Geov[place]ana | + + + | Organization | [facility] | | | and [...] Team Providers + +------+ + | Care Airport Operations Coordinator Name | Role | Phone | + +------+ + | George Lynch | PCP | | | MD | | | + +------+ + Reason for Visit +---------+--------+ + | Reason | Onset | Comments | | | Date | | +---------+--------+ + | Imaging | 02/14/ | | | | 2019 | | +---------+--------+ + Encounter Details +--------+ + + + + | Date | Type | Department | Care Team | Description | +--------+ + + + + | 02/14/ | Telephone | [facility] | Vernon Mar PA-C | Imaging | | 2019 | | PHYSIATRY [address] | [address] | | | | | [address] | [place] | | | | | [place] | [address] | | | | | [address] | | | | | | [phone] | | | +--------+ + + + [...] this encounter Miscellaneous Notes Telephone Encounter - Critsy Salinas Cpo - 02/14/2019 3:33 PM PDTPatient g iven MRI results. At this time she would like to hold off on injections. Patient stated she will be seeing an senior label specialist and will wait to hear from them before doing injecti ons. e brice Encounter - Cristy Salinas Cpo - 02/14/2019 3:30 PM PDT----- Leslie Mar, PA-C sent at 02/14/2019 14:48 PDT ----- Cristy, Please call patient regarding Cervical spine MRI. Results suggest mild changes of the cervical, but nothing very different from previous MRI in 2016. Treatments I can offer include facet injections of the C6-C7 region. Please inform me what patient would like to do. Thanks, Vernon Mar PA-C docume nted in this encounter Plan of Treatment Not on filedocumented as of this encounter Visit Diagnoses Not on filedocumented in this encounter"
--- OUTSIDE RECORDS SUMMARY | ~2019-10-27 | XMS | Encounter Summary ---
Demographics + + + | Address | [address] | | | [place] [address] | + + + | Home Phone | | + + + | Preferred Language | Unknown | + + + | Marital Status | | + + + | Rastafarian Affiliation | CAT | + + + | Race | White | + + + | Ethnic Group | or | + + + Author + + + | Author | [facility] | + + + | Organization | [facility] | + + + | Address [...] Team Providers + +------+ + | Care Cartography Professor Name | Role | Phone | + +------+ + | No Pcp Per Patient | PCP | Unavailable | + +------+ + Reason for Visit + + + | Reason | Comments | + + + | Hearing examination | | + + + Consultation (Routine) +--------+--------+ + + + + | Status | Reason | Specialty | Diagnoses / | Referred By | Referred To | | | | | Procedures | Contact | Contact | +--------+--------+ + + + + | Closed | | Otolaryngolog | Diagnoses | Cris, | Ent Otology | | | | y | increased | George Rodas, | [facility] [address] | | | | | right ear | MD | [facility] | | | | | pain hx of | [place] | Loop | | | | | Tympanoplast | FAMILY | Physician's | | | | | y | MEDICINE | Omar, | | | | | | [address] | floor | | | | | | [address] | [place], [place] | | | | | | [place], | [address] | | | | | | [place] [address] | Phone: | | | | | | Phone: | [phone] | | | | | | [phone] | Fax: | | | | | | Fax: | [phone] | | | | | | [phone] | | +--------+--------+ + + + + Encounter Details +--------+---------+ + + + | Date | Type | Department | Care Team | Description | +--------+---------+ + + + | 08/02/ | Office | Otolaryngology | Florencia Thorpe, | Conductive hearing | | 2012 | Visit | Audiology Services | CCC-A | loss, unilateral | | | | at [facility] [address] | | (Primary Dx) | | | | [address] | | | | | | Physician's | | | | | | Pavilion, 2nd floor | | | | | | [place], [place] | | | | | | [address] | | | | | | [phone] | | | +--------+---------+ + + + [...] + documented as of this encounter Progress Florencia Veras CCC-A - 08/02/2012 3:14 PM PDTMaritza Malone, 52 y.o., was seen for a co mprehensive audiological evaluation today as part of Dr. Altman's otology clinic. Please see otology note for case history, and audiology smart[employer] for complete test results. Ghassan Nash, CHADWICK-A Clinical Dredge Worker documented in this encounter Plan of Treatment +--------+---------+ + + + | Date | Type | Specialty | Care Team | Description | +--------+---------+ + + + | 12/29/ | Office | Ophthalmology | Martha Savage MD | | | 2019 | Visit | | [address] | | | | | | [place], | | | | | | [place] [address] | | | | | | [phone] | | | | | | | | +--------+---------+ + + + documented as of this encounter Procedures + +--------+ + + + | Procedure Name | Priori | Date/Time | Associated Diagnosis | Comments | | | ty | | | | + +--------+ + + + | [place] | Routin | 08/02/2012 | Conductive hearing | | | TYMPANOMETRY&REFLEX | e | 3:48 PM | loss, unilateral | | | THRESH | | PDT | | | + +--------+ + + + | [place] COMPREHENSIVE | Routin | 08/02/2012 | Conductive hearing | | | HEARING TEST | e | 3:48 PM | loss, unilateral | | | | | PDT | | | + +--------+ + + + documented in this encounter Visit Diagnoses + + | Diagnosis | + + | Conductive hearing loss, unilateral - Primary | + + documented in this encounter"
--- OUTSIDE RECORDS SUMMARY | ~2019-10-27 | XMS | Encounter Summary ---
Demographics + + + | Address | [address] | | | [place] [address] | + + + | Home Phone | | + + + | Preferred Language | Unknown | + + + | Marital Status | | + + + | Temple Affiliation | CAT | + + + | Race | White | + + + | Ethnic Group | or | + + + Author + + + | Author | [facility] | + + + | Organization | [facility] | + + + | [...] Team Providers + +------+ + | Care Melter Clerk Name | Role | Phone | [...] [address] | | | | | | [place], [place] | | | | | | [address] | | | +--------+ + + + [...] as of this encounter Progress Notes Interface, Anthropologist Physical In - 08/29/2006 1:01 AM PDT [place] [address] [place], [place] [address] [facility] March 24, 1994 CAROLE COTA MD [facility] [address] [address] RE:Kathryn Malone MR:[id number] Cota: We [...] Rheumatic Diseases RB:aster March 25, 1994 nterface, Anthropologist Physical In - 08/29/2006 1:01 AM PDT [place] [address] [place], [place] [address] [facility] March 24, 1994 CAROLE COTA MD [facility] [address] [place] [address] [place] [address] THIS IS AN INCOMPLETE DOCUMENT RE:Kathryn Malone [...] | | | | | [address] [place], | | | | | | [place] [address] | | | | | | [phone] | | | | | | | | +--------+---------+ + + + documented as of this encounter Visit Diagnoses Not on filedocumented in this encounter"
--- OUTSIDE RECORDS SUMMARY | ~2019-10-27 | XMS | Encounter Summary ---
Demographics + + + | Address | [address] | | | [place] [address] | + + + | Home Phone | | + + + | Preferred Language | Unknown | + + + | Marital Status | | + + + | Alevism Affiliation | CAT | + + + | Race | White | + + + | Ethnic Group | or | + + + Author + + + | Author | [facility] | + + + | Organization | [facility] | + + + | Address | Unknown | + + + | Phone | Unavailable | + + + Support + + + + + | Name | Relationship | Address | Phone | + + + + + | Golden Malone | [place] | [place] | | + + + + + Care Team Providers + +------+ + | Care Auto Dealer Name | Role | Phone | + [...] Conjunctival | | 2020 | Visit | [facility] | MD [address] | pigmentations, left | | | | ogy at [facility] [address] | (Primary Dx); | | | | [address] Mailcode: | [place], [place] | Posterior vitreous | | | | [address] | [address] | detachment, left | | | | [facility], | [phone] | eye; Dry eyes, | | | | Building | | bilateral | | | | Floor [place], [place] | | | | | | [address] | | | | | | [phone] | | | +--------+---------+ + + + [...] "Learning About Vitreous Detachment", log into your [employer] account at [email or web address]. You can enter C974 in the "[employer] Library" search box. Not on [employer]? Review the [employer] section of your After Visit Summary for directions on ho w to sign up. Current as of: November 17, 2017 Content Version: 12.1 7235-3051 [employer]. Care instructions adapted under license by Count includes the [facility] [employer]. If you have questions about a medical condition or this instr uction, always ask your healthcare professional. [employer] disclaims any markus anty or liability for your use of this information. documented in this encounter Progress Notes Huang Lozoya MD - 06/29/2019 1:20 PM PSTAttending Physician Statement: I reviewed ch art notes under general supervision of resident, but did not personally examine this patient . Cosigning only. Inderjit Lozoya MD Oracle Applications Developer, Ophthalmology [facility] [address], [address] [place] [address] Christiane Pandey MD - 06/29/2019 1:20 PM PST COMPREHENSIVE OPHTHALMOLOGY PROGRESS NOTE Assessment and Plan: Exam Date: 06/29/2019 Patient:Maritza Malone ([id number]) Impression: Pigmented conjunctival lesion, left eye - [...] nDFE Christiane Marie MD Ophthalmology Resident, PGY4 [facility] Physician: Christiane Marie MD 06/29/2019 HPI:Maritza Malone ([id number]), 59 y.o. year old female from [place] : Patient presents with: Medical Eye Examination [...] scanned intake form or preadmission data in [facility] for full Family ocular and medical his [...] (1992); and bladder suspension (2010). Please see [facility] ophthalmology module for exam information. Assessment and [...] | | | | | [address] [place], | | | | | | [place] [address] | | | | | | [phone] | | | | | | | [...] [facility] | [address] | [place] [address] | | | [place] | [place]. | [...]
--- OUTSIDE RECORDS SUMMARY | ~2019-10-27 | XMS | Encounter Summary ---
Demographics + + + | Address | [address] | | | [place] [address] | + + + | Home Phone | | + + + | Preferred Language | Unknown | + + + | Marital Status | | + + + | Scientologist Affiliation | CAT | + + + [...] Team Providers + +------+ + | Care Tank Truck Mechanic Name | Role | Phone | + [...] | | | | ear Otalgia | [facility], | | | | | Procedures | Rd | 10th Floor | | | | | [address] | [place], [place] | [place], [place] | | | | | [place] | [address] | [address] | | | | | DISEASE WO | Phone: | Phone: | | | | | | [phone] | [phone] | | | | | | Fax: | Fax: | | | | | | [phone] | [phone] | +--------+--------+ + + + + Reason [...] | | | | Anupama Mills | [facility] [address] | | | | | Cholesteatom | MD [address] | | | | | a of [facility] | [address] [facility] | | | | | ear Otalgia | [facility], | | | | | Procedures | Rd | 10th Floor | | | | | [address] | [place], [place] | [place], [place] | | | | | [place] | [address] | [address] | | | | | DISEASE WO | Phone: | Phone: | | | | | | [phone] | [phone] | | | | | | Fax: | Fax: | | | | | | [phone] | [phone] | +--------+--------+ + + + + Encounter Details +--------+ + + + + | Date | Type | Department | Care Team | Description | +--------+ + + + + | 11/22/ | Hospital | Diagnostic Imaging | | | | 2012 | Encounter | Services at [facility] | | | | | | [address] | | | | | | [place] | | | | | | [address] | | | | | | [place], [place] | | | | | | [address] | | | | | | [phone] | | | +--------+ + + + [...] | | | | | [address] [place], | | | | | | [place] [address] | | | | | | [phone] | | | | | | | [...]
--- OUTSIDE RECORDS SUMMARY | ~2019-10-27 | XMS | Clinical Summary ---
Demographics + + + | Address | [address] | | | [place] [address] | + + + | Home Phone [...] Team Providers + +------+ + | Care Shampoo Assistant Name | Role | Phone | + +------+ + | George Lynch MD | PCP | | + +------+ + Source Comments PAIGE is fully live on both [facility] and [facility] InPatient.[facility] Allergies + + + + + + [...] | | | | | [address], | | | | | | [place] [address] | | | | | | [phone] | | | | | | | [...] | xxxx | yara | 8 | [address] [address] | | | | STATE | | for | | [place], | | | | | | all | | [place] | | | | | | dates | | [address] | | + +--------+ +--------+ + +--------+ | MEDICARE | MEDICA | xxxxxxxxxxx | | [phone] | [address] | [address] | | | RE A & | | [phone] | [address] | | | [address] | | [address]ak[address] | | [place] | | | | | | | | [address] | | + +--------+ +--------+ + +--------+ [...] | | al/Fam | | 1960 | [phone] | [place] | | | [place] | | | 2 (Home) | [address] | + +--------+ +--------+ + + Advance [...]
--- OUTSIDE RECORDS SUMMARY | ~2019-10-27 | XMS | Encounter Summary ---
Demographics + + + | Address | [address] | | | [place] [address] | + + + | Home Phone | | + + + | Preferred Language | Unknown | + + + | Marital Status | | + + + | Tenriism Affiliation | CAT | + + + | Race | White | + + + | Ethnic Group | or | + + + Author + + + | Author | [facility] [place] [facility] | + + + | Organization | [facility] | + + + | Address [...] Team Providers + +------+ + | Care Senior Risk Analyst Name | Role | Phone | [...] | | | | [address] | [place], [place] | | | | | | [place], | [address] | | | | | | [place] [address] | Phone: | | | | | | Phone: | [phone] | | | | | | [phone] | Fax: | | | | | | Fax: | [phone] | | | | | | [phone] | | +--------+--------+ + + + + [...] floor | | | | | | [place], [place] | | | | | | [address] | | | | | | [phone] | | | +--------+---------+ + + + [...] otology note for case history, and audiology [employer] for complete test results. Ghassan Nash, CHADWICK-A Clinical Manufacturing Chief Engineer documented in this encounter Plan of Treatment +--------+---------+ + + + | Date | Type | Specialty | Care Team | Description | +--------+---------+ + + + | 12/29/ | Office | Ophthalmology | Martha Savage MD | | | 2019 | Visit | | [address] | | | | | | [place], | | | | | | [place] [address] | | | | | | [phone] | | | | | | | | +--------+---------+ + + + documented as of this encounter Procedures + +--------+ + + + | Procedure Name | Priori | Date/Time | Associated Diagnosis | Comments | | | ty | | | | + +--------+ + + + | [place] | Routin | 08/02/2012 | Conductive hearing | | | TYMPANOMETRY&REFLEX | e | 3:48 PM | loss, unilateral | | | THRESH | | PDT | | | + +--------+ + + + | [place] COMPREHENSIVE | Routin | 08/02/2012 | Conductive [...]
--- OUTSIDE RECORDS SUMMARY | ~2019-10-27 | XMS | Encounter Summary ---
Demographics + + + | Address | [address] | | | [place] [address] | + + + | Home Phone | | + + + | Preferred Language | Unknown | + + + | Marital Status | | + + + | Congregational Affiliation | CAT | + + + | Race | White | + + + | Ethnic Group | or | + + + Author + + + | Author | [facility] | + + + | Organization | [facility] | + + + | Address | Unknown | + + + | Phone | Unavailable | + + + Support + + + + + | Name | Relationship | Address | Phone | + + + + + | Golden Maloen | [place] | [place] | | + + + + + Care Team Providers + +------+ + | Care Mis Specialist Name | Role | Phone | + +------+ + PCP | Unavailable | + +------+ + Encounter Details +--------+ + + + + | Date | Type | Department | Care Team | Description | +--------+ + + + + | 06/07/ | Abstract | Otolaryngology | Otology, [address] | | | 2012 | | Otology Services at | [facility] | | | | | [facility] [address] [place], [place] | | | | | [address] | [address] | | | | | Physician's | | | | | | Pavilion, [facility] floor | | | | | | [place], [place] | | | | | | [address] | | | | | | [phone] | | | +--------+ + + + [...] | | | | | [address] [place], | | | | | | [place] [address] | | | | | | [phone] | | | | | | | | +--------+---------+ + + + documented as of this encounter Visit Diagnoses Not on filedocumented in this encounter"
--- OUTSIDE RECORDS SUMMARY | ~2019-10-27 | XMS | Encounter Summary ---
Demographics + + + | Address | [address] | | | [place] [address] | + + + | Home Phone | | + + + | Preferred Language | Unknown | + + + | Marital Status | | + + + | Mu-Ism Affiliation | [id number] | + + + | Race | Unknown | + + + | Ethnic Group | Unknown | + + + Author + + + | Author | [facility] | | | and Geovannyana | + + + | Organization | [facility] | | | and Geovannyana [...] Team Providers + +------+ + | Care Svp Of Digital Name | Role | Phone | + +------+ + | George Lynch | PCP | | | MD | | | + +------+ + Reason for Visit + + + | Reason | Comments | + + + | Follow-up | Back Pain | + + + Encounter Details +--------+---------+ + + + | Date | Type | Department | Care Team | Description | +--------+---------+ + + + | 03/03/ | Office | [facility] | Jose Sunny, | Lumbar spondylosis | | 2018 | Visit | PHYSIATRY [address] | PA-C [address] | (Primary Dx); | | | | [address] | [address] [place] | Fibromyalgia | | | | [place], [place] | [place] [address] | | | | | [address] | [phone] | | | | | [phone] | | | +--------+---------+ + + + [...] + + + | Blood Pressure | 137/101 | 03/03/2018 2:30 PM | | | | | PDT | | + + + + + | Pulse | 87 | 03/03/2018 2:30 PM | | | | | PDT [...] Weight | 65.8 kg (145 lb) | 03/03/2018 2:30 PM | | | | | PDT | | + + + + + | Height | 152.4 cm (5') | 03/03/2018 2:30 PM | | | | | PDT | | + + + + + | Body Mass Index | 28.32 | 03/03/2018 2:30 PM | | | | | PDT | | + + + + + documented in this encounter Patient Instructions Patient Instructions Sunny Garcia PA-C - 03/03/2018 2:20 PM PDTLumbar facet injections o rdered. Once approved by insurance, we will call you to set up injection appointment. Please call our office with the name of the physical therapy location you went to in the [facility]. Follow up with Sunny Garcia PA-C approximately 3 weeks after injection. Please remember to complete pain log form for this visit. Follow-up at the hospital thirty minutes before your scheduled procedure to allow for time to check in. You may eat and drink as usual on the day of the procedure. If you are scheduled for an epidural injection do not take any blood thinning medications f or at least 5-7 days prior to your procedure unless you have been instructed by another phys ician not to discontinue blood thinning medications. If you are having a procedure other than an epidural injection (i.e. facet injection, media l branch block, SI joint injection or other joint injection) it is not absolutely necessary to discontinue blood thinning medications but doing so will decrease the risk of bruising or bleeding. If you have had a prior stroke, DVT or PE or if you are taking blood thinning medication be cause you have atrial fibrillation, a prosthetic cardiac valve replacement or heart stenting do not stop taking your blood thinning medications unless you have permission from your car diologist or primary care provider. All other medications should be taken as usual on the day of the procedure. Common blood thinning medications include: Aspirin (a baby aspirin is o.k.) Ibuprofen (Advil or Motrin) Naproxen (Aleve) Nabumetone (Relafen) Clopidogrel (Plavix) Dipyridamole/ASA (Aggrenox) Warfarin (Coumadin) Dabigatran (Pradaxa) Rivaroxaban (Xarelto) There are many others. If you have questions about your medications and whether or not you should stop any medications please contact our office. If you are having an epidural injection or if you take any medication for relaxation/sedati on on the day of the procedure you must provide a powder truck driver to take you home. For all procedur es it is recommended that someone else drive you home. Facet Joint Injection Back or neck pain may be caused by a problem with your facet joints. If so, a facet joint i njection may help. With this treatment, medicine is injected into certain facet joints. The injection can help your doctor find problem joints. It may also relieve your pain. What is a facet joint? Bones called vertebrae make up your spine. Each vertebra has facets (flat surfaces) that to uch where the vertebrae fit together. These form a structure called a facet joint on each si de of the vertebrae. What is a facet joint injection? One or more facet joints in your back or neck can become inflamed (swollen and irritated). This may cause pain. During a facet joint injection, medicine is injected into the inflamed joints. This treatment may help reduce inflammation and relieve pain. Pain reliefmay last for weeks to months or longer. If the pain returns, you may need a repeat injection. Getting ready To get ready for your treatment, do the following: At least a week before treatment, tell your healthcare provider what medicines you take. This includes aspirin. Ask whether you should stop taking any of them before treatment. Tell your provider if you are or allergic to any medicines. Follow any directions you are given for not eating or drinking before the treatment. If asked, bring X-rays, MRIs, or other tests with you on the day of your treatment. Date Last Reviewed: 08/02/[id number] [employer]. [address] [place] [address]. All righ ts reserved. This information is not intended as a substitute for professional medical care. Always follow your healthcare professional's instructions. documented in this encounter Progress Notes Sunny Garcia PA-C - 03/03/2018 2:20 PM PDTFormatting of this note might be different fro m the original. Sunny Garcia PA-C [address] [place] [address], [address] [place], [place] [address] FAX: CHIEF COMPLAINT: Chief Complaint Patient presents with Follow-up Back Pain HISTORY OF PRESENT ILLNESS: The patient is a 57 y.o. female being seen today in follow-up for complaints of low back pa in with posterior leg radiation to the knees. The patient has been seen for this complaint in the past. Previously it was recommended that she have bilateral SI joint injections. S he reports that the treatment was effective however for only 3 weeks. This injection was pe rformed 2 years ago. The patient does have a history of fibromyalgia. The patient's symptoms originally began several years ago. Overall the patient reports t hat the symptoms are worsening. She rates the pain as severe. She describes the pain as a ting, sharp or stabbing. Her symptoms worsen with bending or twisting. Her symptoms impro ve with Rest, hot tub, hot packs,. The patient does not describe numbness of the legs. She does report weakness of the legs. She does not have bowel and bladder dysfunction. She does not have saddle anesthesia. Treatments for these complaints have included PT, injections, medications Patient's medications, allergies, past medical, surgical, social and family histories were reviewed and updated as appropriate. CURRENT MEDICATIONS: Current Outpatient Prescriptions Medication Sig Dispense Refill acetaminophen (TYLENOL) 325 mg tablet Take 325 mg by mouth as needed. aspirin 81 MG tablet Take 81 mg by mouth Daily. MELATONIN PO Take by mouth. tolnaftate (TINACTIN) 1% cream Apply topically 2 times daily. No current facility-administered medications for this visit. ALLERGIES: Allergies Allergen Reactions Latex Rash REVIEW OF SYSTEMS: GENERALLY: No fever, chills, no night sweats, no fatigue, no weight loss, no weight gain. EYES: No vision changes. EARS, NOSE, AND THROAT: No hearing loss, no ear pain, no nosebleeds, no toothache, no gum p roblems, no significant snoring or sleep apnea, no seasonal allergies, no difficulty swallow ing, no hoarseness. NEUROMUSCULAR: Please see the review of systems discussed above in the history of present illness. In addition, the patient has no dizziness, no blackouts, no headaches. PSYCHIATRIC: No depression, no difficulty sleeping, no anxiety, no memory loss. CARDIOVASCULAR: No chest pain, no palpitations, no swollen ankles. PULMONARY: No shortness of breath, no cough. GASTROINTESTINAL: No poor appetite, no diarrhea, no nausea or vomiting, no bowel incontine nce, no hemorrhoids, no constipation, no abdominal pain. GENITOURINARY: No urinary difficulty and no incontinence. SKIN: No rashes. HEMATOLOGIC/LYMPHATIC: No enlarged lymph nodes or swollen glands. ENDOCRINE: No diabetes, no thyroid disease, no osteopenia or osteoporosis, no breast drain age. RHEUMATOLOGIC: No osteoarthritis, no rheumatoid arthritis. PHYSICAL EXAMINATION: Height 1.524 m (5'), weight 65.8 kg (145 lb). Body mass index is 28.32 kg/m. GENERAL: The patient is well developed and well nourished. She does appear uncomfortable w hen seated. HEENT: Normocephalic and atraumatic. Normal sclerae without icterus. NECK (ANTERIOR): There is no apparent cervical lymphadenopathy or thyromegaly. PULMONARY: The patient is in no acute respiratory distress with unlabored respirations. CARDIOVASCULAR: Regular rate and rhythm. There is not lower extremity edema. ABDOMEN: Non-distended. SKIN: Limited skin exam shows no significant rashes or lesions. There are not scars in the region. NEUROLOGIC: The patient is awake, alert, and oriented. She follows simple and complex commands. Her speech is fluent. She comprehends speech well. She has no apparent deficits with short or alf memory. The cranial nerves appear grossly intact. Sensory exam does not show diminished sensation to light touch in the legs REFLEX: RIGHT LEFT PATELLAR 2+ 2+ ACHILLES 2+ 2+ MUSCULOSKELETAL : Straight leg raise and slump-sit are negative. Lenny's maneuver and im pingement testing were negative for any groin pain. There was no tenderness to palpation ov er the greater trochanters or sacral sulci. The patient localized the majority of the pain to the L5-S1 region. Lumbar facet loading was positive. Strength testing showed 4/5 streng th throughout the lower extremities (giveway weakness). The patient was able to heel and to e walk without difficulty. There was no redness, effusion, warmth or joint line tenderness in the knees or ankles. RADIOGRAPHIC REVIEW: The patient's imaging was reviewed in detail with the patient today during the visit. Lumba r MRI from from 2016 shows multilevel facet effusions worse at L4-5 and L5/S1. ASSESSMENT: Encounter Diagnoses Name Primary? Lumbar spondylosis Yes Fibromyalgia PLAN: 1) Today we discussed the patient's differential diagnosis with the likely primary issue be ing LUMBAR SPONDYLOSIS. Patient's description of symptoms, physical exam, and imaging sugge st this diagnosis at this time. 2) I counseled patient on treatment options which included conservative self management usi ng OTC NSAIDs/Ice and heat packs, physical therapy, prescription medications, epidural stero id injection, as well as possible surgical intervention. 3) Imaging: As descibed above in radiology review. 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 Unfortunately Maritza Malone continues to have significant discomfort. It appears to me that the pain is hoa hawa coming from facet effusions at L4/5 and L5/S1. Based on the patient's history, physical examination and review of the available imaging th e patient has been diagnosed with pain coming primarily from the lumbar facet joints with no other lumbar pathology considered to be a significant possible source of discomfort. The manuel zee's pain has been moderate to severe, rated as a 9 usually on a 0-10 scale. The pain i s impacting activities of daily living including cooking, cleaning, bathing, dressing. The manuel zee has been dealing with this pain for more than 3 months and has failed conservative tr eatment with NSAIDs, PT and a home exercise program therefore therapeutic facet injections w ere ordered today. I did feel that Maritza Malone would be a good candidate for interventional proced ures and I offered a bilateral L4/5 and L5/S1 facet injections to be done. 5) Patient will follow up with me 3 weeks post injection to discuss any imaging and/or prog ress with today's treatment plan. 6) If current treatment plan is insufficient for symptom relief we could try L3/4 facet inj ections and/or MBB/RFA as the next therapy option. 7) The patient is clearly in significant pain, it is likely a mix of facet pain that is amp lified by fibromyalgia. I do not think she could tolerate a round of PT at this time. She banegas s attempted to in the past but was discharged due to intolerance of the exercise, stretching , and massage (per patient). We are requesting records from her prior PT offices. She may ne ed to have genesight testing performed to assess proper SSRI medication to treat her fibromy algia. I would recommend her PCP order GeneSight testing for her to better treat her myofasc ial pain via the appropriate SSRI and dosage. I spent 30 minutes in visit with Maritza Boucher Faisal today with the majority of time spent counselling the patient on her diagnosis, options for her care, and coordinating her care. ELECTRONICALLY SIGNED BY: Sunny Garcia PA-C, 03/03/2018 15:18 CC: George Lynch MD documented in this en counter Plan of Treatment Not on filedocumented as of this encounter Results FL Facet Injection Lumbar Sacral (04/21/2018 3:04 PM PST) + + | Specimen | + + | | + + + + -+ | Narrative | Performed At | + + -+ | | [facility] | | 04/21/2018Bilateral Lumbar Facet Steroid Injections Diagnosis: Lumbar | | | Spondylosis ICD-10 Code M47.816 Maritza Sander Malone presents to the | | | [...] Diagnosis | + + | Lumbar spondylosis - Primary Lumbosacral spondylosis without myelopathy | + + | Fibromyalgia Mylagia and myositis, unspecified | + + documented in this encounter"
--- OUTSIDE RECORDS SUMMARY | ~2019-10-27 | XMS | Encounter Summary ---
Demographics + + + | Address | [address] | | | [place] [address] | + + + | Home Phone | | + + + | Preferred Language | Unknown | + + + | Marital Status | | + + + | Religion Affiliation | CAT | + + + | Race | White | + + + | Ethnic Group | or | + + + Author + + + | Author | [facility] | + + + | Organization | [facility] | + + + | Address | Unknown | + + + | Phone | Unavailable | + + + Support + + + + + | Name | Relationship | Address | Phone | + + + + + | Golden Malone | [place] | [place] | | + + + + + Care Team Providers + +------+ + | Care E Commerce Merchant Name | Role | Phone | + +------+ + | George Lynch MD | PCP | | + +------+ + Reason for Visit +---------+ + | Reason | Comments | +---------+ + | Post Op | | +---------+ + Encounter Details +--------+---------+ + + + | Date | Type | Department | Care Team | Description | +--------+---------+ + + + | 12/16/ | Office | Otolaryngology | Anupama Naranjo | Postop check | | 2012 | Visit | Otology Services at | MD Kelvin [address] | (Primary Dx) | | | | [facility] [address] | | | | | [address] | [place], [place] | | | | | Physician's | [address] | | | | | Omar, [facility] floor | [phone] | | | | | [place], [place] | | | | | | [address] | | | | | | [phone] | | | +--------+---------+ + + + [...] of this encounter Patient Instructions Patient Instructions Selvin Coronado - 12/16/2012 1:09 PM PDTMyChart is a great way to contact me if you have questions in between visits. If you are not already signed up for Johnny yChart there is information at the end of this After Visit Summary to help you get started. documented in this encounter Progress Notes Anupama Naranjo MD - 12/16/2012 11:39 PM PDTI personally interviewed the patient, dupl icated the pertinent parts of the physical examination and personally formulated the plan wi th the resident. I have reviewed, entered my findings, and agree with the above documentati on. Anupama Mcpherson MD PhD Network Diagnostic Support Specialist Otology, Neurotology & Skull Base Surgery ovani Bonilla MD - 12/16/2012 1:30 PM PDTOH OTORHINOLARYNGOL [facility] NOTE Date: 12/16/2012 HPI: Maritza Malone is a 52 y.o. female who is here for follow-up after undergoing an EUA on 11/23. At that time there was no cholesteatoma and the area of concern was sclerosis. Adam ivey has not had any drainage but has noted some occasional pain - but she states it starts beh ind her ear and migrates up to her forehead and behind her eye. 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 Exam: LMP 07/14/2012 General: Well developed, well nourished, Speech is intact. Neuro: Awake, alert, oriented x3, CN intact Psych: Appropriate. Face: Normal facial contour, normal facial nerve function Eyes: Vision grossly intact, EOMI Ears: AD: Normal external anatomy, EACs clear, TM with previously noted area of sclerosis in the post-sup quadrant : Normal external anatomy, EACs clear, TM clear, intact without effusion Resp: No stridor, no retraction, no increased work of breathing. Assessment and Plan: Maritza Malone seems to be well since we last saw her. Her pain seem s stress-related and is not consistent with otalgia - she agrees with this assessment. She may follow-up as needed. This patient was seen and discussed with Anupama Mcpherson MD. Kalyani Bonilla MD Otorhinolaryngology - Head & Neck Surgery documented in this encounter Plan of Treatment +--------+---------+ + + + | Date | Type | Specialty | Care Team | Description | +--------+---------+ + + + | 12/29/ | Office | Ophthalmology | Martha Savage MD | | | 2019 | Visit | | [address] | | | | | | [place], | | | | | | [place] [address] | | | | | | [phone] | | | | | | | | +--------+---------+ + + + documented as of this encounter Visit Diagnoses + + | Diagnosis | + + | Postop check - Primary Follow-up examination, following unspecified surgery | + + documented in this encounter"
--- OUTSIDE RECORDS SUMMARY | ~2019-10-27 | XMS | Encounter Summary ---
Demographics + + + | Address | [address] | | | [place] [address] | + + + | Home Phone | | + + + | Preferred Language | Unknown | + + + | Marital Status | | + + + | Advent Affiliation | CAT | + + + | Race | White | + + + | Ethnic Group | or | + + + Author + + + | Author | [facility] | + + + | Organization | [facility] | + + + | Address [...] Team Providers + +------+ + | Care Digital Imaging Technician Name | Role | Phone | + [...] | TYMPANOPLASTY | | 2012 | | CARRIE [facility] | [facility] [address] | WITHOUT MASTOID | | | | [facility] | [address] | | | | | Ambulatory Surgery | [place], [place] | | | | | Admitting Desk | [address] | | | | | Located on the [facility] | [phone] | | | | | floor, Room [facility] | | | | | | [place], [place] | | | | | | [address] | | | +--------+---------+ + + + [...] office to get yo ur questions answered. [phone] during business hours [phone] after hours and weekends or holidays [facility] After EAR [...] Thursday from 8:00 4:30, call Otolaryngology Clinic [phone]. After hours, weekend and holidays call the Hospital Business Employment Specialist at [phone]. Ask for them to page your doctor. [...] | | | | | [address] [place], | | | | | | [place] [address] | | | | | | [phone] | | | | | | | [...] Anupama Mcpherson M.D. | | | | Videotape Operator(s): Azucena Ceron MD | | | | [...] | | LIZA / ERENDIRA | | [id number] / [id number] / [id number] / | | | | | + [...]
--- OUTSIDE RECORDS SUMMARY | ~2019-10-27 | XMS | Encounter Summary ---
Demographics + + + | Address | [address] | | | [place] [address] | + + + | Home Phone | | + + + | Preferred Language | Unknown | + + + | Marital Status | | + + + | Gnosticism Affiliation | [id number] | + + + | Race | Unknown | + + + | Ethnic Group | Unknown | + + + Author + + + | Author | [facility] | | | and Geovannyana | + + + | Organization | [facility] | | | and Geovannyana [...] Team Providers + +------+ + | Care Lead Presser Name | Role | Phone | + [...] Closed | | Radiology | Diagnoses | Mar, | [facility] | | | | | Cervical | NIRANJAN Junior | [address] | | | | | radiculopath | [address] | [place], | | | | | y Chronic | [place] | [place] | | | | | neck pain | [address]VE | [address] | | | | | Arm pain, | [place], | Phone: | | | | | right | [place] [address] | [phone] | | | | | Chronic pain | Phone: | Fax: | | | | | of right | [phone] | [phone] | | | | | hand S/P | Fax: | | | | | | carpal | [phone] | | | | | | tunnel | | | | | | | release | | | | | | | Procedures | | | | | | | MRI Cervical | | | | | | | Spine wo | | | | | | | Contrast | | | +--------+--------+ + + + + Reason for Visit + + + | Reason | Comments | + + + | Follow-up | Back apin | + + + Follow Up (Routine) +--------+--------+ + + + + | Status | Reason | Specialty | Diagnoses / | Referred By | Referred To | | | | | Procedures | Contact | Contact | +--------+--------+ + + + + | Closed | | Physical | Diagnoses | Cris, | Coleman, | | | | Medicine and | Low back | George | Denis Warren MD | | | | Rehabilitatio | pain Left | MD Rigoberto | [address] | | | | n | leg pain | [address] [place] | | | | | Z:back pain | [address] | [place] | | | | | follow up | [place], | [address] Phone: | | | | | | [place] | [phone] | | | | | | [address] | Fax: | | | | | | Phone: | [phone] | | | | | | [phone] | | | | | | | Fax: | | | | | | | [phone] | | +--------+--------+ + + + + Encounter Details +--------+---------+ + + + | Date | Type | Department | Care Team | Description | +--------+---------+ + + + | 10/02/ | Office | [facility] | Vernon Mar PA-C | Cervical | | 2019 | Visit | PHYSIATRY [address] | radiculopathy | | | | [address] | [address] [place], [place] | (Primary Dx); | | | | [place], [place] | [address] | Fibromyalgia; Arm | | | | [address] | | pain, right; Chronic | | | | [phone] | | neck pain; Chronic | | | | | | pain of right hand; | | | | | | S/P carpal tunnel | | | | | | release; Myalgia, | | | | | | unspecified site | +--------+---------+ + + + Social History [...] in this encounter Patient Instructions Patient Instructions Vernon Mar PA-C - 02/02/2019 11:20 AM PDTFormatting of this note mi ght be different from the original. 1) Cervical MRI ordered today. Our office will call you once we have insurance approval to move forward with next step in treatment plan. 2) Continue with at home exercises. 3) Continue with current Rx medications as prescribed and directed. 4) Also ordered neck Xrays, as well as Blood work, CBC, CMP, TSH, CRP, ESR, NICOLAS, Urine micr oscopy. 5) Follow up 3-4 weeks after injection. Nervio pinzado en el morgan Un nervio pinzado en el morgan (radiculopata cervical) se debe a que un nervio que va de la mdula pizano hasta el morgan o el brazo est irritado o presionado. Puede deberse a u n disco vertebral que est deformado. Un disco vertebral es baldev almohadilla que hay entre c ada baldev de las vrtebras (huesos) de la columna. Tambin puede deberse a que baldev articulac in de la columna se estrech a causa de la osteoartritis o a un desgarro por lesiones torsten teradas. Un nervio pinzado puede provocar entumecimiento, hormigueo, un dolor profundo o un dolor pu nzante con sensacin de electricidad que va desde un lado del morgan hasta los dedos de la mano de haresh lado. Un nervio puede pinzarse despus de baldev torcedura o flexin repentina y forzada (reynaldo en un accidente de automvil) o despus de darlyn realizado un movimiento simple chrissy extrao . Cualquiera sea el randee, suele darlyn espasmos musculares, lo cual aumenta el dolor. Cuidados en la casa Siga estos consejos para cuidarse en salazar casa: Descanse y relaje los msculos. Emplee baldev almohada cmoda para apoyar la fei y man tener la columna en baldev posicin natural (neutra). Salazar fei no debera estar inclinada banegas daniele adelante ni hacia atrs. Puede usar baldev toalla enrollada para lograr un mejor apoyo.M antenga salazar morgan alineado con el xiomara del cuerpo cuando est parado o sentado. Mantenga l a fei hacia arriba y los hombros hacia abajo. No realice actividades en las que tenga que movers mucho el morgan. Puede usar calor y masajes para ayudar a aliviar el dolor. Bertha baldev ducha o un trenton, o use baldev almohadilla trmica. Tambin puede aliviarle usar baldev compresa fra. Para formar baldev compresa fra, puede envolver con baldev toalla laz baldev bolsa plstica con cubos de hiel o o hielo molido. Pruebe tanto con fro reynaldo con calor, y use el mtodo que se sienta mejo r para usted. Roscoe esto por 20 minutos varias veces al da. Puede usar acetaminofn o ibuprofeno para controlar el dolor, a menos que le hayan rece tado otro medicamento para calmar el dolor. Si tiene baldev enfermedad crnica del hgado o d e los riones, consulte a salazar proveedor antes de usar estos medicamentos. Tambin hable con salazar proveedor si tiene baldev lcera de estmago o sangrado gastrointestinal. Disminuya el estrs. El estrs puede hacer que el dolor tarde ms en irse. Roscoe todos los ejercicios o estiramientos que le hayan indicado cuando le dieron el antoinette del hospital. Use un morgan ortopdico blando si as se lo indicaron. Se sabe que la fisioterapia y lso masajes pueden ayudar. Puede que necesite ciruga si tuvo baldev lesin ms grave. Visita de control Programe baldev visita de control con salazar proveedor de atencin mdica, o segn se le haya i ndicado, si no comienza a sentirse mejor al cabo de baldev semana. Puede que necesite ms prue bas.Dgale a salazar proveedor si tiene fiebre o escalofros, o si baj de peso. Si le tomaron radiografas, las evaluar un radilogo. Le informarn de los nuevos davis azgos que puedan afectar salazar atencin mdica. Cundo debe buscar atencin mdica? Llame a salazar proveedor de atencin mdica de inmediato si tiene cualquiera de los siguiente s sntomas: El dolor empeora, incluso despus de sheng el medicamento recetado Debilidad en el brazo o las piernas El entumecimiento en el brazo empeora Dificultades para respirar o tragar Date Last Reviewed: 02/22/201719999680-7538 [employer]. [address] [place] [address]. Todos lo s derechos reservados. Esta informacin no pretende sustituir la atencin mdica profesio nal. Slo salazar mdico puede diagnosticar y tratar un problema de julianne. Qu es la radiculopata cervical? La radiculopata cervical es baldev irritacin o inflamacin de baldev tony nerviosa en el cu ello. Provoca dolor en el morgan y otros sntomas que pueden propagarse al pecho o a lo lar go del brazo. Para entender esta afeccin, ayuda comprender traffic rate computer se compone la columna gerard tebral: Vrtebras. Son huesos que se apilan unos sobre otros para formar la columna vertebral. La columna cervical contiene las siete vrtebras del morgan. Discos. Son las almohadillas blandas de tejido entre las vrtebras. Actan reynaldo amorti guadores para la columna. Elcanal pizano. Es un tnel que se forma dentro de las vrtebras apiladas. La mdula pizano pasa a travs de zoë canal. Nervios. Se ramifican desde la mdula pizano. Al salir del canal pizano, los nervios pasan por aberturas entre las vrtebras. La tony nerviosa es la parte de un nervio que est ms cerca de la mdula pizano. Cuando hay radiculopata cervical, las races nerviosas del morgan estn irritadas. Enigma produce dolor y sntomas que pueden desplazarse hacia los nervios que van desde la mdula pizano hasta los brazos y el torso. Cules son las causas de la radiculopata cervical? Envejecer, baldev lesin, olivia postura y otros factores pueden ocasionar problemas en el cuel lo. Estos problemas pueden luego irritar las races nerviosas. Incluyen: Daos en un disco en la columna cervical. En haresh randee, el disco daado puede presionar sobre las races nerviosas cercanas. Degeneracin a causa del desgaste y el envejecimiento. Enigma puede ocasionar un estrecha miento (estenosis) de las aberturas entre las vrtebras. Las aberturas que se goodwin estrechad o presionan sobre las races nerviosas cuando estas salen del canal pizano. Baldev columna inestable. Enigma sucede cuando baldev vrtebra se desliza hacia adelante. Puede hacer presin sobre la tony nerviosa. Hay otras cosas, menos comunes, que ejercen presin sobre los nervios del morgan. Por ejem plo, infeccin, quistes y tumores. Sntomas de la radiculopata cervical Incluyen: Dolor en el morgan Dolor, entumecimiento, cosquilleo o debilidad que bajan por el brazo Prdida de movimiento del morgan Espasmos musculares Tratamiento de la radiculopata cervical En la mayora de los casos, salazar proveedor de atencin mdica intentar vanessa con trata mientos que ayudan a aliviar los sntomas. Por ejemplo: Medicamentos analgsicos (calmantes del dolor) recetados o de venta ellen. Ayudan a ali viar el dolor y la hinchazn. Compresas fras. Estos mtodos ayudan a reducir el dolor. Reposo. Implica evitar las posturas y actividades que aumentan el dolor. Soporte para el morgan (morgan ortopdico). Enigma puede ayudar a aliviar la inflamacin y el dolor. Fisioterapia, incluyendo ejercicios fsicos y estiramientos. Puede ayudar a reducir el dolor y a aumentar el movimiento y el funcionamiento. Inyecciones de medicamentosalrededor de las races nerviosas. Enigma se hace para ayudar a aliviar los sntomas por algn tiempo. En algunos casos, salazar proveedor de atencin mdica puede indicarle baldev ciruga para corre gir el problema subyacente. Eso depende de la causa, los sntomas y cunto hace que tiene el dolor. Posibles complicaciones Con el tiempo, un nervio irritado e inflamado puede daarse. Eso puede ocasionar entumecim iento o debilidad a po plazo (permanente). Si jero sntomas cambian de manera repentina o empeoran, asegrese de comentrselo a salazar proveedor de atencin mdica. Cundo llamar a salazar proveedor de atencin mdica Llame a salazar proveedor de atencin mdica de inmediato si nota alguno de los siguientes s ntomas: Dolor nuevo o dolor que empeora Debilidad, cosquilleo o entumecimiento nuevos o que empeoran en salazar brazo o salazar mano Cambios en salazar vejiga o jero intestinos Date Last Reviewed: 07/12/201519992947-8590 [employer]. [address] [place] [address], [place] [address]. All [facility] ts reserved. This information is not intended as a substitute for professional medical care. Always follow your healthcare professional's instructions. 1) Over the counter Wrist Brace Like we discussed in clinic today to wear at bedtime. 2) Wrist stretches 3)NSAIDs, Tylenol for pain control. Carpal Tunnel Syndrome Carpal tunnel syndrome is a painful condition of the wrist and arm. It is caused by pressur e on the median nerve. The median nerve is one of the nerves that give feeling and movement to the hand. It passes through a tunnel in the wrist called the carpal tunnel. This tunnel i s made up of bones and ligaments. Narrowing of this tunnel or swelling of the tissues inside the tunnel puts pressure on the median nerve. This causes numbness, pins and needles, or el ectric shooting pains in your hand and forearm. Often the pain is worse at night and may wak e you when you are asleep. Carpal tunnel syndrome may occur during and with use of control pills. It i s more common in workers who must often bend their wrists. It is also common in people who w ork with power tools that cause strong vibrations. Home care Rest the painful wrist. Avoid repeated bending of the wrist back and forth. This puts pr essure on the median nerve. Avoid using power tools with strong vibrations. If you were given a splint, wear it at night while you sleep. You may also wear it durin g the day for comfort. Move your fingers and wrists often to prevent stiffness. Elevate your arms on pillows when you lie down. Try using the unaffected hand more. Try not to hold your wrists in a bent, downward position. Sometimes changes in the work place may ease symptoms. If you type most of the day, it m ay help to change the position of your keyboard or add a wrist support. Your wrist should be in a neutral position and not bent back when typing. You may [id number]-[id number] pain medicine to treat pain and inflammation, unless anoth er medicine was prescribed.Anti-inflammatory pain medicines, such as ibuprofen or naproxen may be more effective than acetaminophen, which treats pain, but not inflammation.If you have chronic liver or kidney disease or ever had a stomach ulcer or gastrointestinal bleedin g, talk with your healthcare provider before using these medicines. Opioid pain medicine will only give temporary relief and does not treat the problem. If pain continues, you may need a shot of a steroid drug into your wrist. If the above methods fail, you may need surgery. This will open the carpal tunnel and re lease the pressure on the trapped nerve. Follow-up care Follow up with your healthcare provider, oras advised. If X-rays were taken,you will be notified of any new findings that may affect your care. When to seek medical advice Call your healthcare provider right away if any of these occur: Pain not improving with the above treatment Fingers or hand become cold, blue, numb, or tingly Your whole arm becomes swollen or weak Date Last Reviewed: 09/01/201719999176-5526 [employer]. [address] [place] [address]. All righ ts reserved. This information is not intended as a substitute for professional medical care. Always follow your healthcare professional's instructions. Understanding Carpal Tunnel Syndrome The carpal tunnel is a narrow space inside the wrist. It is ringed by bone and a band of to ugh tissue called the transverse carpal ligament. A major nerve called the median nerve runs from the forearm into the hand through the carpal tunnel. Tendons also run through the carp al tunnel. With carpal tunnel syndrome, the tendons or nearby tissues within the carpal tunnel may swe ll or thicken. Or the transverse carpal ligament may harden and shorten. This narrows the sp joaquín in the carpal tunnel and puts pressure on the median nerve. This pressure leads to tingl ing and numbness of the hand and wrist. In time, the condition can make even simple tasks banegas rd to do. What causes carpal tunnel syndrome? Doctors aren t entirely clear why the condition occurs. Certain things may make a person more likely to have it. These include: Being female Being Being overweight Having diabetes or rheumatoid arthritis Symptoms of carpal tunnel syndrome Symptoms often come and go. At first, symptoms may occur mainly at night. Later, they may b e noticed during the day as well. They may get worse with activities such as driving, readin g, typing, or holding a phone. Symptoms can include: Tingling and numbness in the hand or wrist Sharp pain that shoots up the arm or down to the fingers Hand stiffness or cramping, especially in the morning Trouble making a fist Hand weakness and clumsiness Treatment for carpal tunnel syndrome Certain treatments help reduce the pressure on the median nerve and relieve symptoms. [facility] es for treatment may include one or more of the following: Wrist splint. This involves wearing a special brace on the wrist and hand. The splint ho lds the wrist straight, in a neutral position. This helps keep the carpal tunnel as open as possible. Cortisone shots. Cortisone is a medicine that helps reduce swelling. It is injected dire ctly into the wrist. It helps shrink tissues inside the carpal tunnel. This relieves symptom s for a time. Pain medicines. You may take updz-dfm-zgcspkn or prescription medicines to help reduce s welling and relieve symptoms. Surgery. If the condition doesn t respond to other treatments and doesn t go away on its own, you may need surgery. During surgery, the surgeon cuts the transverse carpal ligam ent to relieve pressure on the median nerve. When to call your healthcare provider Call your healthcare provider right away if you have any of these: Fever of 100.4F (38C) or higher, or as directed Symptoms that don t get better, or get worse New symptoms Date Last Reviewed: 07/12/201519993440-2265 [employer]. [address] [place] [address]. All [facility] reserved. This information is not intended as a substitute for professional medical care. Always follow your healthcare professional's instructions. 1) Superfeet or new insoles with arch support. Qu es la fascitis plantar? La fascitis plantar es un afeccin que causa dolor en el taln y el pie. La fascia planta r es baldev cheatham de tejido resistente que atraviesa la parte inferior del pie desde el taln a los dedos del pie. Zoë tejido fabiola del hueso del taln. Soporta el arco del pie cuando e mpuja para separarse del suelo. Si zoë tejido se irrita o est enrojecido o inflamado (hin chado), se trata de fascitis plantar. Cules son las causas de la fascitis plantar? La causa ms frecuente de la fascitis plantar es usar en exceso la fascia plantar. El teji do puede daarse con actividades que sobrecarguen repetidamente el taln y el pie. O puede desgastarse con el tiempo por la edad y por tener rigidez en el tobillo. Tiene ms probabi lidades de tener fascitis plantar si: Hace actividades que requieran correr, saltar o bailar mucho Tiene un trabajo que le exige estar de pie por largos perodos Tiene sobrepeso o es allyssa Tiene ciertos problemas, reynaldo un tendn de Bruno tenso, pies planos o christy altos Usa con frecuencia zapatos que no le calzan horacio Sntomas de la fascitis plantar Candido de los sntomas ms comunes de esta afeccin es dolor en el taln y la parte inferi or del pie. El dolor puede aparecer cuando da los primeros pasos por la maana. Puede que m ejore a medida que camina a lo po del da. Chrissy cuando va cargando peso sobre el pie, el dolor suele regresar. El dolor tambin puede aparecer despus de estar mucho tiempo de pi e o sentado. Tratamiento de la fascitis plantar Los tratamientos para la fascitis plantar incluyen lo siguiente: Hacer reposo del pie. Enigma implica limitar los movimientos que le causan dolor en el pie . Brennenbin puede que necesite evitar ciertos tipos de actividades deportivas y laborales por algn tiempo. Usar compresas fras. Colquese baldev compresa de hielo sobre el taln y el pie para ay udar a reducir el dolor y la inflamacin. Sheng medicamentos para el dolor. Los medicamentos analgsicos de venta con y sin recet a pueden ayudar a aliviarle el dolor y la inflamacin. Usar protectores del taln o plantillas para el pie (ortesis). Se colocan dentro de los zapatos para gonsalo mejor soporte al taln o al arco, y para darle amortiguacin al taln. Tambin puede que le indiquen comprar zapatos que le calcen horacio, con buen soporte para el arco y con bases mullidas. Encintar el pie. Enigma le da soporte al arco y limita el movimiento de la fascia plantar para ayudar a aliviar los sntomas. Usar baldev frula por la noche. Enigma estira la fascia plantar y los msculos de la piern a mientras usted duerme. Puede ayudar a aliviar el dolor. Hacer ejercicios y fisioterapia. Enigma estira y fortalece la fascia plantar y los mscul os de la pierna que dixon soporte al taln y al pie. Aplicarse inyecciones de medicamento en el pie. Puede ayudar a aliviar los sntomas por algn tiempo. Hacerse baldev ciruga. Puede ser necesario si otros tratamientos no ayudan a aliviar los sntomas. Lexis la ciruga, el cirujano puede cortarle parcialmente la fascia plantar pa ra aliviar la tensin. Posibles complicaciones de la fascitis plantar Sin el debido cuidado y tratamiento, la recuperacin puede tardar ms que lo habitual. Ad ems, los sntomas pueden continuar o empeorar. Con el tiempo, la fascia plantar puede da arse. Enigma puede causarle dificultades para caminar o incluso para estar de pie sin sentir dolor. Cundo llamar a salazar proveedor de atencin mdica Llame a salazar proveedor de atencin mdica de inmediato si nota alguno de los siguientes s ntomas: Fiebre de 100.4F (38C) o superior, o segn le indiquen Los sntomas no mejoran con el tratamiento, o empeoran Sntomas nuevos, reynaldo entumecimiento, cosquilleo o debilidad en el pie Date Last Reviewed: 07/12/201519999547-7026 [employer]. [address] [place] [address], [place] [address]. Todos lo s derechos reservados. Esta informacin no pretende sustituir la atencin mdica profesio nal. Slo salazar mdico puede diagnosticar y tratar un problema de julianne. Tratamiento de la fascitis plantar En primer lugar, salazar proveedor de atencin mdica tratar de determinar la causa de salazar pr oblema para sugerirle formas de aliviar el dolor. Si el dolor se debe a la olivia mecnica de l pie, puede ayudar usar unas plantillas hechas a la medida (rtesis). Reduzca los sntomas Las siguientes son algunas sugerencias: Para aliviar sntomas leves, pruebe tomando aspirina, ibuprofeno u otro medicamento seg n le indiquen. Tambin podra ayudar frotarse hielo en la ena afectada. Para reducir un dolor e hinchazn tristen, salazar proveedor de atencin mdica puede rece tarle pastillas, inyecciones o baldev frula para caminar en algunos casos. Tambin podran recomendarle un tipo de fisioterapia, reynaldo el ultrasonido o un plan de ejercicios diarios de estiramiento. Es raro que se necesite ciruga. Para reducir los sntomas producidos por baldev olivia mecnica del pie, batsheva vez le coloque n baldev venda adhesiva para dameon apoyo al arco y controlar los movimientos por un tiempo. Las frulas nocturnas tambin pueden ayudar a estirar la fascia. Control del movimiento Si los vendajes surten efecto, salazar proveedor de atencin mdica podra recetarle unas r tesis. Elaboradas a partir de un molde de yeso de jero pies, estas rtesis controlan los mov imientos del pie y deberan eliminar los sntomas. Reduccin del uso excesivo Cada vez que salazar pie golpea el suelo, la fascia plantar se estira. Para reducir el esfuerzo de la fascia plantar y la posibilidad de usarla excesivamente, siga estos consejos: Adelgace lo necesario. Evite correr en terreno gen o irregular. Use las rtesis todo el tiempo en jero zapatos o pantuflas. Si se necesita ciruga Si los dems tipos de tratamiento no logran controlar salazar dolor, salazar proveedor de atencin mdica podra considerar hacerle baldev ciruga. Lexis esta operacin, se corta parcialme nte la fascia plantar para liberar la tensin. En la etapa de cicatrizacin, el espacio en grace el hueso del taln y la fascia plantar se rellena de tejido fibroso. Date Last Reviewed: 02/14/201519999952-0901 [employer]. [address] [place] [id number]. Todos lo s derechos reservados. Esta informacin no pretende sustituir la atencin mdica profesio nal. Slo salazar mdico puede diagnosticar y tratar un problema de julianne. Fascitis Plantar [Plantar Fasciitis] La fascitis plantar es baldev inflamacin dolorosa del tejido que cubre los huesos en la plan ta de salazar pie. sta se puede desarrollar gradualmente o repentinamente. Normalmente afecta a un pie por vez. El dolor de taln puede ser jaylyn y sentirse reynaldo un cuchillo clavndose en la planta de salazar pie. El dolor puede aparecer despus de hacer ejercicio, correr distanci as largas, subir escaleras, estar parado por mucho tiempo, o despus de levantarse de baldev p osicin sentado. Los factores de riesgo incluyen la artritis, diabetes, obesidad oaumento de peso reciente , pie plano, arco elevado, el uso de tacones altos o zapatos flojos o con un mal soporte de arco. El dolor de pie derivado de esta condicin normalmente es peor lexis la maana y mejora caminando. Al final del da puede darlyn baldev molestia moderada. El tratamiento requiere rep stephanie a corto plazo y control de la inflamacin. Puede sheng hasta nueve meses antes de que l os sntomas desparezcan con las medidas descritas a continuacin. Raramente, puede ser nec esaria baldev inyeccin de esteroides en el pie o ciruga. Cuidado En [place]: 1. Si usted tiene sobrepeso, adelgace para promover la sanacin.Reemplace los zapatos de hacer deporte cuando estn desgastados. No camine o corra descalzo. 2. Elija zapatos con un buen arco de soporte y absorcin de los golpes. 3. Las plantillas especialesson baldev parte importante del tratamiento. waldemar brindan un s oporteptimo para el arco. Aunqueusted puede adquirir plantillas econmicas de venta l ibre, las mejores son las que se elaboran a salazar medida por salazar podlogo(especialista de los pies). 4. Las tablillas o frulas nocturnas (suministradas por un podlogo) mantinenen el taln estirado mientras que duerme, previniendo as el dolor en la maana. 5. Evite las actividades que esfuercen los pies reynaldo trotar, permanecer de pieo caminar p or mucho tiempo, los deportes de contacto, etc. 6. Lo vanessa que debe hacer en la maana y antes de hacer deportes, es estirar la planta de los pies. Flexione suavemente salazar tobillo de manera que el pie se mueva hacia la rodilla. 7. Aplicarse hielo puede ayudar a controlar el dolor en el taln. Aplquese compresas de hielo (cubitos de hielo en baldev bolsa plstica, envuelta en baldev toalla) en el taln lexis 10-20 minutos reynaldo baldev medida preventiva o despus de un ataque jaylyn de los sntomas. Pu mariana repetir esto cada 1-2 horas segn sea necesario. 8. Puede usar acetaminofn (Tylenol) o ibuprofeno (Motrin, Advil) para controlar el dolor, a menos que le receten otro medicamento para el dolor. [NOTA: Si tiene baldev enfermedad del h gado o los riones, o si alguna vezha tenidouna lcera estomacal o sangrado gastroin testinal, hable con salazar mdico antes de usar estos medicamentos.] Seguimiento: con salazar mdico o de acuerdo a lo indicado por nuestro personal. Llame para pedir un turno s i el dolor empeora o no hay alivio luego de unas semanas de tratamiento en casa. Podrane cesitar plantillas, frulas nocturnas, o baldev bota de yeso. [NOTA: Si le hicieron radiografas, sern examinadas por un radilogo. Le avisarn si h ay algo nuevo que pueda afectar salazar atencin] Busque Prontamente Atencin Mdica Si Algo De Lo Siguiente Ocurre: Hinchazn del pie con enrojecimiento o dolor creciente Date Last Reviewed: 03/24/[id number] [employer]. [address] [place] [address], [place] [address]. Todos lo s derechos reservados. Esta informacin no pretende sustituir la atencin mdica profesio nal. Slo salazar mdico puede diagnosticar y tratar un problema de julianne. documented in this encounter Progress Notes Vernon Mar PA-C - 02/02/2019 11:20 AM PDT Vernon Mar PA-C [address] [facility], [address] [place], [place] [address] FAX: CHIEF COMPLAINT: Chief Complaint Patient presents with Follow-up Back apin HISTORY OF PRESENT ILLNESS: Maritza Malone is a 58 y.o. female with the complaint of neck pain, shooting pains, n umbness, loss of strength to Right arm that began 2 months ago. The patient rates her pain a nd discomfort as moderate-severe. Since the symptoms began, she has noticed that symptoms st arted off gradual, became intermittent, and now chronic. She describes the pain as a aching , numbing, sharp, shooting, tingling and "feeling like I can't move" Right thumb and index f ranjith. The patient also describes arm symptoms down the right side. The arm symptoms accou nt for at least greater than or equal to 50% of her symptoms. Her pain travels from Neck do wn the Right shoulder to Right elbow then to Right hand. Maritza Malone does report loss of strength Right hand. She does indicate a history of loss of fine motor function Right hand. The patient does not reports bowel or bladder incontinence. The patient does not reports s addle paresthesias. Her symptoms improve with rest. Her symptoms worsen with position changes, typing, grasping. Treatments for these complaints have included PT, medications injections, EMG (01/15/2016). Patient has a Hx of fibromyalgia, Degenerative Disc Disease of the Lumbar spine, Sacroiliit s, trochanteric bursitis, chronic neck pain. Patient also reports having procedures for carpal tunnel surgery March 2018, and recent bunionectomy of the Left foot. But she has had some increased foot pain. She will be seeing podiatry specialist soon via PCP referral. Patient's medications, allergies, past medical, surgical, social and family histories were reviewed and updated as appropriate. 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 Anxiety Chest pain DDD (degenerative disc disease), lumbar 09/26/2015 Depression Fatigue Fibromyalgia Fibromyalgia 09/26/2015 Foraminal stenosis of lumbar region- mild left L5 09/26/2015 Gastritis GERD (gastroesophageal reflux disease) Hyperlipoproteinemia type II A Lumbar spondylolysis Mononeuritis Neck pain 11/13/2015 Neuralgia, postherpetic Other abdominal hernia unspecified type Otitis media, chronic nonsuppurative, right Otogenic vertigo Perimenopausal RA (rheumatoid arthritis) ([facility]) Sacroiliitis, not elsewhere classified ([facility]) 09/26/2015 Stomach ulcer Urge incontinence of urine Vitamin D deficiency PAST SURGICAL HISTORY: Past Surgical History: Procedure Laterality Date APPENDECTOMY CARPAL TUNNEL RELEASE Right FOOT SURGERY Bilateral HEAD SURGERY ROTATOR CUFF REPAIR Bilateral SMALL INTESTINE SURGERY CURRENT MEDICATIONS: Current Outpatient Medications Medication Sig Dispense Refill acetaminophen (TYLENOL) 325 mg tablet Take 325 mg by mouth as needed. aspirin 81 MG tablet Take 81 mg by mouth Daily. LORazepam (ATIVAN) 0.5 mg tablet Take 0.5 mg by mouth every 6 hours as needed for Anxie ty. meloxicam (MOBIC) 15 mg tablet Take 15 mg by mouth Daily. tolnaftate (TINACTIN) 1% cream Apply topically 2 times daily. No current facility-administered medications for this visit. ALLERGIES: Allergies Allergen Reactions Latex Rash SOCIAL HISTORY: The patient reports that she has never smoked. She has never used smokeless tobacco. She r eports that she drinks alcohol. She reports that she does not use drugs. FAMILY HISTORY: Family History Problem Relation Age of Onset Diabetes Father Arthritis Mother REVIEW OF SYSTEMS: GENERALLY: No fever, no night sweats, no anemia, no fatigue, no recent profound weight ch anges. EYES: No eye problems, no use of corrective lenses, no eye injury, no double vision, no bl indness. EARS, NOSE, AND THROAT: No changes in taste or smell, no hearing difficulty, no ringing in the ears, no ear drainage, no dizziness, no voice changes, no difficulty swallowing, no sig nificant snoring, no sleep apnea, no sinus problems, no major dental work. NEUROLOGICALLY: Please see the review of systems discussed above in the history of present illness. PSYCHIATRIC: No depression, no sleep disorders, no anxiety, no bipolar disorder, no psycho tic episodes. CARDIOVASCULAR: No heart attacks, no heart [...] RHEUMATOLOGIC: No joint arthritis, no rheumatoid arthritis. PHYSICAL EXAMINATION: Blood pressure 124/82, resp. rate 16, height 1.524 m (5'), weight 65.8 kg (145 lb). Body ma ss index is 28.32 kg/m. GENERAL: The patient is well developed and well nourished. She does appear uncomfortable w hen seated. HEENT: HEAD/FACE: EYES: Normocephalic and atraumatic. There are no areas of recent trauma. Normal sclerae without icterus. SKIN Limited skin exam shows no significant rashes or lesions. CHEST: The patient is in no acute respiratory distress with unlabored respirations. HEART: There is not lower extremity edema. ABDOMEN: Soft, non-tender, non-distended, and without palpable masses. The patient is not obese. MUSCULOSKELETAL: The cervical spine exam shows there is tenderness over the C-5, C-6, C-7 a nd C-8 region. Range of motion is limited. Spurling's test: positive with rotation to Right radiated pain to both arms. With rotation to Left negative. Flexion and extension of the neck does cause severe discomfort. No tenderness in the midline of the thoracic or lumbar spine. There is no major palpable d eformity of the spine. NEUROLOGIC: The patient is awake, alert, and oriented to time, place, person. She follows simple and complex commands. Her speech is fluent. She comprehends speech well. 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 She has appropriate fund of knowledge Cranial nerves 2-12 appear grossly intact. Coordination: Finger/Nose and heel/billingsley is intact Rapid Alternating Movement in UE and LE is intact. Sensory exam with monofilament does show diminished sensation to light touch in the Right upper extremity along radial nerve distal to wrist. Patient also expressed feeling increased sharpness on monofilament testing along Right ulnar nerve. 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 The cervical images from 12/27/2015: -No significant disc protrusions, no evidence of nerve root impingement or central canal st enosis at any level. ASSESSMENT: 1. Cervical radiculopathy XR Cervical Spine 4 or 5 [facility] MRI Cervical Spine wo Contrast CBC with Differential Sedimentation Rate C-Reactive Protein Comprehensive Metabolic Panel Urinalysis With Microscopic NICOLAS Screen, Qual, Reflex TSH 2. Fibromyalgia 3. Arm pain, right XR Cervical Spine 4 or 5 [facility] MRI Cervical Spine wo Contrast CBC with Differential Sedimentation Rate C-Reactive Protein Comprehensive Metabolic Panel Urinalysis With Microscopic NICOLAS Screen, Qual, Reflex TSH 4. Chronic neck pain XR Cervical Spine 4 or 5 [facility] MRI Cervical Spine wo Contrast CBC with Differential Sedimentation Rate C-Reactive Protein Comprehensive Metabolic Panel Urinalysis With Microscopic NICOLAS Screen, Qual, Reflex TSH 5. Chronic pain of right hand XR Cervical Spine 4 or 5 [facility] MRI Cervical Spine wo Contrast CBC with Differential Sedimentation Rate C-Reactive Protein Comprehensive Metabolic Panel Urinalysis With Microscopic NICOLAS Screen, Qual, Reflex TSH 6. S/P carpal tunnel release XR Cervical Spine 4 or 5 [facility] MRI Cervical Spine wo Contrast CBC with Differential Sedimentation Rate C-Reactive Protein Comprehensive Metabolic Panel Urinalysis With Microscopic NICOLAS Screen, Qual, Reflex TSH 7. Myalgia, unspecified site TSH PLAN: It was a pleasure meeting and evaluating this patient today, and I greatly appreciate the r eferral. 1)Today I have discussed my clinical impression with Maritza Malone. Shared decision making between Maritza Malone and I was used during today's encounter. We discussed t he patient's differential diagnosis, description of symptoms, physical exam, imaging and grace atment plan that suggest diagnosis at this time. 2) I counseled patient on treatment options which included conservative self management usi ng OTC NSAIDs/Ice and heat packs, physical therapy, prescription medications, epidural stero id injection, as well as possible surgical intervention. 3) Imaging: Reviewed above in radiology review section Cervical spine MRI was ordered to assess cervical spine for herniation, disc pathology, and /or nerve root impingement that may be contributing to patient's symptoms. Cervical spine Xrays was ordered to assess cervical spine for compression fracture or insta bility during flexion/extension that may be contributing to patient's symptoms. 4) The patient has had significant conservative care including medications (NSAIDS and narc otics), PT (multiple sessions over the years) and career resource specialist. Unfortunately Maritza Malone continues to have significant discomfort. It appears to me that the pain is hoa hawa coming from Cervical spine region and possibly Right wrist. I did feel that Maritza Malone would be a good candidate for interventional proced ures to be done dependent on imaging and lab results. Blood work ordered as listed above under assessment. Follow up with cost and risk analysis manager and consider shoe inserts with better arch support. 5) Patient will follow up with me to discuss any imaging and/or progress with today's treat ment plan once imagine and lab results are available. 6) If current treatment plan is insufficient for symptom relief we could try medication lik e Cymbalta, because of her previous fibromyalgia diagnosis as the next therapy option. I spent 45 minutes in visit with Maritza Malone today with the majority of time spent counselling the patient on her diagnosis, options for her care, and coordinating her care. ELECTRONICALLY SIGNED BY: Vernon Mar PA-C, 02/02/2019 15:49 documented in this enc ounter Plan of Treatment Not on filedocumented as of this encounter Procedures + +--------+ + + + | Procedure Name | Priori | Date/Time | Associated Diagnosis | Comments | | | ty | | | | + +--------+ + + + | LABS - EXTERNAL SCAN | | 03/17/2019 | | Results for this | | | | 12:00 AM | | procedure are in the | | | | PST | | results section. | + +--------+ + + + | LABS - EXTERNAL SCAN | | 12/21/2018 | | Results for this | | | | 12:00 AM | | procedure are in the | | | | PDT | | results section. | + +--------+ + + + | IMAGING REPORT - | | 07/15/2018 | | Results for this | | EXTERNAL SCAN | | 12:00 AM | | procedure are in the | | | | PDT | | results section. | + +--------+ + + + documented in this encounter Results LABS - EXTERNAL SCAN (03/17/2019 12:00 AM PST) + + + | Narrative | Performed At | + + + | Ordered by an | | | unspecified provider. | | + + + MRI Cervical Spine wo Contrast (02/11/2019 2:22 PM PDT) + + | Specimen | + + | | + + + + + | Impressions | Performed At | + + + | Mild, mildly progressive posterior disc protrusion at C6-C7. | [facility] | | This does not result in significant narrowing of the central spinal | | | canal or neural foramen. Dictated and Signed by: Rangel Tijerina, | | | Electronically signed: 02/11/2019 3:18 PM | | + + + + + + | Narrative | Performed At | + + + | EXAM: MRI CERVICAL SPINE WO CONTRAST dated 02/11/2019 1:33 PM. | [facility] | | HISTORY: Neck pain, abnormal neuro exam COMPARISON: Cervical | | | spine radiograph 02/02/2018. Cervical spine MRI 12/27/2015. | | | TECHNIQUE: Multiplanar multisequence MR imaging of the cervical spine | | | without contrast. This is performed on a 1.5 Melissa magnet. | | | FINDINGS: There is no scoliosis. There is no spondylolisthesis. | | | There is diffuse disc desiccation. No significant disc narrowing. | | | No endplate degenerative changes. No compression deformities. | | | The cord has normal size, signal, contour throughout its visible | | | course. Limited evaluation of the posterior fossa contents is | | | unremarkable. No precervical soft tissue thickening. C2-C3 is | | | unremarkable and unchanged as seen on the sagittal sequence only. | | | The visible upper thoracic spine is unremarkable. The central | | | spinal canal and neural foramina are patent to the level of T7-T8. | | | The following levels are evaluated in the axial plane: C3-C4: No | | | significant spinal canal stenosis or neural foraminal narrowing. No | | | significant interval change. C4-C5: No significant spinal canal | | | stenosis or neural foraminal narrowing. No significant interval | | | change. C5-C6: No significant spinal canal stenosis or neural | | | foraminal narrowing. No significant interval change. C6-C7: | | | Broad posterior disc protrusion. Mild facet arthrosis bilaterally. | | | Mild narrowing of the central spinal canal. The neural foramen | | | are widely patent. This level is very mildly progressed. C7-T1: | | | No significant spinal canal stenosis or neural foraminal narrowing. | | | No significant interval change. The paracervical soft tissues | | | are unremarkable. | | + + + + + | Procedure Note | + + | Prashanth, Rad Results In - 02/11/2019 3:22 PM PDT EXAM: MRI CERVICAL SPINE WO CONTRAST | | dated 02/11/2019 1:33 PM.HISTORY: Neck pain, abnormal neuro examCOMPARISON: Cervical | | spine radiograph 02/02/2018. Cervical spine MRI 12/27/2015.TECHNIQUE: Multiplanar | | multisequence MR imaging of the cervical spine withoutcontrast. This is performed on a | | 1.5 Melissa magnet. FINDINGS: There is no scoliosis. There is no spondylolisthesis. | | There isdiffuse disc desiccation. No significant disc narrowing. No | | endplatedegenerative changes. No compression deformities. The cord has normal | | size,signal, contour throughout its visible course. Limited evaluation of theposterior | | fossa contents is unremarkable. No precervical soft tissuethickening. C2-C3 is | | unremarkable and unchanged as seen on the sagittalsequence only. The visible upper | | thoracic spine is unremarkable. The centralspinal canal and neural foramina are patent | | to the level of T7-T8.The following levels are evaluated in the axial plane:C3-C4: No | | significant spinal canal stenosis or neural foraminal narrowing. Nosignificant | | interval change.C4-C5: No significant spinal canal stenosis or neural foraminal | | narrowing. Nosignificant interval change.C5-C6: No significant spinal canal stenosis | | or neural foraminal narrowing. Nosignificant interval change.C6-C7: Broad posterior | | disc protrusion. Mild facet arthrosis bilaterally. Mildnarrowing of the central spinal | | canal. The neural foramen are widely patent. This level is very mildly | | progressed.C7-T1: No significant spinal canal stenosis or neural foraminal narrowing. | | Nosignificant interval change.The paracervical soft tissues are unremarkable.IMPRESSION: | | Mild, mildly progressive posterior disc protrusion at C6-C7. This does notresult in | | significant narrowing of the central spinal canal or neural foramen.Dictated and Signed | | by: Rangel Tijerina MD Electronically signed: 02/11/2019 3:18 PM | |C4-C5: No significant spinal canal stenosis or neural foraminal narrowing. No | |significant interval change. | | | |C5-C6: No significant spinal canal stenosis or neural foraminal narrowing. No | |significant interval change. | | | |C6-C7: Broad posterior disc protrusion. Mild facet arthrosis bilaterally. Mild | |narrowing of the central spinal canal. The neural foramen are widely patent. | |This level is very mildly progressed. | | | |C7-T1: No significant spinal canal stenosis or neural foraminal narrowing. No | |significant interval change. | | | |The paracervical soft tissues are unremarkable. | | | |IMPRESSION: | | | |Mild, mildly progressive posterior disc protrusion at C6-C7. This does not | |result in significant narrowing of the central spinal canal or neural foramen. | | | |Dictated and Signed by: Rangel Tijerina MD | | Electronically signed: 02/11/2019 3:18 PM | + + + +---------+ + + | Performing | Address | City/State/Zipcode | Phone Number | | Organization | | | | + +---------+ + + | [facility] | | | | + +---------+ + + XR Cervical Spine 4 or 5 [facility] [...] no instability. Dictated and Signed by: Amari You | | | Electronically signed: 02/02/2019 3:05 [...] | | | + +---------+ + + LABS - EXTERNAL SCAN (12/21/2018 12:00 AM PDT) + + + | Narrative | Performed At | + + + | Ordered by an | | | unspecified provider. | | + + + IMAGING REPORT - EXTERNAL SCAN (07/15/2018 12:00 AM PDT) + + + | Narrative | Performed At | + + + | Ordered by an | | | unspecified provider. | | + + + documented in this encounter Visit Diagnoses + + | Diagnosis | + + | Cervical radiculopathy - Primary Brachial neuritis or radiculitis nos | + + | Fibromyalgia Mylagia and myositis, unspecified | + + | Arm pain, right Pain in limb | + + | Chronic neck pain Cervicalgia | + + | Chronic pain of right hand | + + | S/P carpal tunnel release Other postprocedural status | + + | Myalgia, unspecified site | + + documented in this encounter
--- OUTSIDE RECORDS SUMMARY | ~2019-10-27 | XMS | Encounter Summary ---
Demographics + + + | Address | [address] [place] [address] | | | [place] [address] | + + + | Home Phone | | + + + | Preferred Language | Unknown | + + + | Marital Status | | + + + | Baptism Affiliation | CAT | + + + | Race | White | + + + | Ethnic Group | or | + + + Author + + + | Author | [facility] | + + + | Organization | [facility] | + + + [...] Team Providers + +------+ + | Care Doors Prefitter Name | Role | Phone | + +------+ + | George Lynch MD | PCP | | + +------+ + Encounter Details +--------+ + + + + | Date | Type | Department | Care Team | Description | +--------+ + + + + | 11/22/ | Hospital | Cardiac | [facility] | | | 2012 | Encounter | Non-Invasive Testing | [address] | | | | | at [place] | [facility] | | | | | [address] | [place] [address] | | | | | [address] | | | | | | [place], [address] [place] [address] | | | | | | [place], [place] | | | | | | [address] | | | | | | [phone] | | | +--------+ + + + [...] | | | | | | [place] [address] | | | | | | [phone] | | | | | | | [...] view image for the detailed interpretation from [facility] results. | CARDIOLOGY | + + + + + | Procedure Note | + + | Interface, Cardiology Results - 11/24/2012 12:00 AM PDT Please click on view image | | for the detailed interpretation from [facility] results. | + + + + + + + | Performing | Address | City/State/Zipcode | Phone Number | | Organization | | | | + + + + + | [facility] | [address] | [place], [place] | | | CARDIOLOGY | [address] | [address] | | + + + + + documented in this encounter Visit Diagnoses Not on filedocumented in this encounter"
--- OUTSIDE RECORDS SUMMARY | ~2019-10-27 | XMS | Encounter Summary ---
Demographics + + + | Address | [address] | | | [place] [address] | + + + | Home Phone | | + + + | Preferred Language | Unknown | + + + | Marital Status | | + + + | Temple Affiliation | 1041 | + + + | Race | Unknown | + + + | Ethnic Group | Unknown | + + + Author + + + | Author | [facility] | | | and Geovannyana | + + + | Organization | [facility] | | | and [...] Team Providers + +------+ + | Care Cat Dog Or Other Pet Groomer Name | Role | Phone | + +------+ + | George Lynch | PCP | | | MD | | | + +------+ + Reason for Visit + + + | Reason | Comments | + + + | Numbness | upper extremities | + + + Evaluate & Treat (Routine) +--------+ + + + + + | Status | Reason | Specialty | Diagnoses / | Referred By | Referred To | | | | | Procedures | Contact | Contact | +--------+ + + + + + | Closed | Specialty | Physical | Diagnoses | | Person, | | | Services | Medicine and | Disturbance | Coleman, | MD George | | | Required | Rehabilitatio | of skin | Denis Warren MD | [address] | | | | n | sensation | [address] | | | | | Procedures | [place] | [place] | | | | | [place] | [place] | [address] Phone: | | | | | &/SENS 1-2 | [id number] | [phone] | | | | | NRV CNDJ | Phone: | Fax: | | | | | PRECONF | [phone] | [phone] | | | | | [place] | Fax: | | | | | | [place] | [phone] | | | | | | &/SENS 3-4 | | | | | | | NRV CNDJ | | | | | | | PRECONF | | | | | | | [place] | | | | | | | [place] | | | | | | | &/SENS 7-8 | | | | | | | NRV CNDJ | | | | | | | PRECONF | | | | | | | [place] | | | | | | | EMG | | | +--------+ + + + + + Encounter Details +--------+ + + + + | Date | Type | Department | Care Team | Description | +--------+ + + + + | 01/14/ | Procedure | [facility] | George Shukla, | Paresthesias/numbnes | | 2016 | visit | PHYSIATRY [address] | [address] | s (Primary Dx) | | | | [address] | [address] | | | | | [place] | [place] [address] | | | | | [address] | [phone] | | | | | [phone] | | | +--------+ + + + [...] + + + | Blood Pressure | 128/68 | 01/15/2016 2:28 PM | | | | | PDT | | + + + + + | Pulse | 60 | 01/15/2016 2:28 PM | | | | | PDT [...] Weight | 65.8 kg (145 lb) | 01/15/2016 2:28 PM | | | | | PDT | | + + + + + | Height | 152.4 cm (5') | 01/15/2016 2:28 PM | | | | | PDT | | + + + + + | Body Mass Index | 28.32 | 01/15/2016 2:28 PM | | | | | PDT | | + + + + + documented in this encounter Procedure Notes George Shukla MD - 01/15/2016 3:31 PM PDTAssociated Order(s): EMG STUDYProcedure(s) : EMG STUDYPre-Procedure Diagnose(s): Paresthesias/numbnessPost-Procedure Diagnose(s): Hand numbness; Fibromyalgia [facility] Sp[facility], Physiatry [place] [address] Test Date: 01/15/2016 Patient Name: Maritza Malone : 1960 Physician: George Shukla MD MR #: [id number] Sex: Female Referring Physician: Dr. Deins Cee HISTORY: Ms. Boucher is a 55 year-old right-handed woman with a history of fibromyalgia who was refer red to the EMG lab to evaluate her right greater than left hand numbness. Patient reports a long history of pain in the finger joints and burning pain in the palms along with ri ght hand weakness. She had a recent MRI C-spine which did not demonstrated any NF narrowing . On exam she has normal reflex s, normal sensation, reduced right mass spec strength. Anti Sensory Summary Table Site NR Peak (ms) Norm Peak (ms) P-T Amp (V) Norm P-T Amp Site1 Site2 Delta-P (ms) Dist (cm) John Paul (m/s) Norm John Paul (m/s) Right Median Anti Sensory (2nd Digit) Wrist 3.1 <3.6 29.3 >10 Wrist 2nd Digit 3.1 14.0 45 >39 Right Ulnar Anti Sensory (5th Digit) Wrist 3.0 <3.7 44.4 >15.0 Wrist 5th Digit 3.0 14.0 47 >38 Comparison Summary Table Site NR Peak (ms) Norm Peak (ms) P-T Amp (V) Site1 Site2 Delta-P (ms) Norm Delta (ms) Right Median/Radial Dig I Comparison (Digit 1 - 10cm) Median 2.6 <2.9 13.1 Median Radial 0.0 <0.4 Radial 2.6 <2.8 38.9 Right Median/Ulnar Dig IV Comparison (Digit 4 - 14cm) Median Wr *3.4 <3.3 26.5 Median Wr Ulnar Wr 0.1 <0.4 Ulnar Wr 3.3 <3.3 4.1 Right Median/Ulnar Palm Comparison (Wrist - 8cm) Median Palm 2.0 <2.2 28.3 Median Palm Ulnar Palm 0.2 <0.3 Ulnar Palm 1.8 <2.2 8.7 Motor Summary Table Site NR Onset (ms) Norm Onset (ms) O-P Amp (mV) Norm O-P Amp Site1 Site2 Delta-0 (ms) Dist (cm) John Paul (m/s) Norm John Paul (m/s) Right Median Motor (Abd Poll Brev) Wrist 3.2 <4.2 13.3 >5 Elbow Wrist 3.8 22.0 58 >50 Elbow 7.0 12.8 Right Ulnar Motor (Abd Dig Minimi) Wrist 2.9 <4.2 8.3 >3 B Elbow Wrist 2.8 16.0 57 >53 B Elbow 5.7 6.0 A Elbow B Elbow 1.5 8.0 53 >53 A Elbow 7.2 7.2 there was suboptimal proximal ulnar CMAP stimulation due to patient tolerance. EMG was not done per patient preference, and recent normal C-spine MRI which I reviewed. Patient also elected to not have her left arm tested today. NCV FINDINGS: Evaluation of the Right median/ulnar (dig IV) comparison nerve showed prolonged distal peak latency (Median Wr), though the sum total of the peak latency difference for the other stud ies was normal. All remaining nerves (as indicated in the following tables) were within nor mal limits. IMPRESSION: This is a normal study. There is no electrodiagnostic evidence of a right median mononeuro carol across the wrist (i.e. carpal tunnel syndrome) or right ulnar neuropathy. Discussed with patient that her nerves are normal and that her symptoms are most likely rel ated to her fibromyalgia. In encouraged her to start daily low intensity exercise. Thank you for allowing me to perform neurodiagnostic testing on your patient. If you have a ny further questions or comments, please do not hesitate to call. Mynor Shukla MD Diplomate, [place] [employer] and Rehabilitation. documented in thi s encounter Plan of Treatment Not on filedocumented as of this encounter Procedures + +--------+ + + + | Procedure Name | Priori | Date/Time | Associated Diagnosis | Comments | | | ty | | | | + +--------+ + + + | EMG STUDY | Routin | 01/15/2016 | | Results for this | | | e | 3:34 PM | Paresthesias/numbnes | procedure are in the | | | | PDT | s | results section. | + +--------+ + + + documented in this encounter Results EMG Study (01/15/2016 3:34 PM PDT) + + + | Narrative | Performed At | + + + | George Shukla MD 01/15/2016 15:34 [facility] | | | [facility] [place] | | | [facility] [address] [place] [id number] Ph: | | | Test Date: 01/15/2016 | | | Patient Name: Maritza Malone : 1960 Physician: | | | George Shukla MD MR #: [id number] Sex: Female Referring | | | Physician: Dr. Denis Cee HISTORY: Ms. Boucher is a 55 | | | year-old right-handed woman with a history of fibromyalgia who was | | | referred to the EMG lab to evaluate her right greater than left hand | | | numbness. Patient reports a long history of | | | | | | pain in the finger joints | | | and burning pain in the palms along with right hand weakness. | | | She had a recent MRI C-spine which did not demonstrated any NF | | | narrowing. On exam she has normal reflex | | | | | | s, normal sensation, reduced right mass spec strength. Anti Sensory | | | Summary Table Site NR Peak (ms) Norm Peak (ms) P-T Amp ( V) Norm | | | P-T Amp Site1 Site2 Delta-P (ms) Dist (cm) John Paul (m/s) Norm John Paul (m/s) | | | Right Median Anti Sensory (2nd Digit) Wrist 3.1 <3.6 29.3 >10 | | | Wrist 2nd Digit 3.1 14.0 45 >39 Right Ulnar Anti Sensory (5th | | | Digit) Wrist 3.0 <3.7 44.4 >15.0 Wrist 5th Digit 3.0 14.0 47 | | | >38 Comparison Summary Table Site NR Peak (ms) Norm Peak (ms) | | | P-T Amp ( V) Site1 Site2 Delta-P (ms) Norm Delta (ms) Right | | | Median/Radial Dig I Comparison (Digit 1 - 10cm) Median 2.6 <2.9 | | | 13.1 Median Radial 0.0 <0.4 Radial 2.6 <2.8 38.9 Right | | | Median/Ulnar Dig IV Comparison (Digit 4 - 14cm) Median Wr *3.4 | | | <3.3 26.5 Median Wr Ulnar Wr 0.1 <0.4 Ulnar Wr 3.3 <3.3 4.1 | | | Right Median/Ulnar Palm Comparison (Wrist - 8cm) Median Palm | | | 2.0 <2.2 28.3 Median Palm Ulnar Palm 0.2 <0.3 Ulnar Palm | | | 1.8 <2.2 8.7 Motor Summary Table Site NR Onset (ms) | | | Norm Onset (ms) O-P Amp (mV) Norm O-P Amp Site1 Site2 Delta-0 (ms) | | | Dist (cm) John Paul (m/s) Norm John Paul (m/s) Right Median Motor (Abd Poll | | | Brev) Wrist 3.2 <4.2 13.3 >5 Elbow Wrist 3.8 22.0 58 >50 | | | Elbow 7.0 12.8 Right Ulnar Motor (Abd Dig Minimi) | | | Wrist 2.9 <4.2 8.3 >3 B Elbow Wrist 2.8 16.0 57 >53 B Elbow | | | 5.7 6.0 A Elbow B Elbow 1.5 8.0 53 >53 A Elbow 7.2 | | | 7.2 there was suboptimal proximal ulnar CMAP | | | stimulation due to patient tolerance. EMG was not done per | | | patient preference, and recent normal C-spine MRI which I reviewed. | | | Patient also elected to not have her left arm tested today. NCV | | | FINDINGS: Evaluation of the Right median/ulnar (dig IV) comparison | | | nerve showed prolonged distal peak latency (Median Wr), though the | | | sum total of the peak latency difference for the other studies was | | | normal. All remaining nerves (as indicated in the following | | | tables) were within normal limits. IMPRESSION: This is a | | | normal study. There is no electrodiagnostic evidence of a right | | | median mononeuropathy across the wrist (i.e. carpal tunnel syndrome) | | | or right ulnar neuropathy. Discussed with patient that her nerves | | | are normal and that her symptoms are most likely related to her | | | fibromyalgia. In encouraged her to start daily low intensity | | | exercise. Thank you for allowing me to perform | | | neurodiagnostic testing on your patient. If you have any further | | | questions or comments, please do not hesitate to call. | | | Mynor Shukla MD Diplomate, [place] | | | Board of Physical Medicine and Rehabilitation. | | | | | + + + documented in this encounter Visit Diagnoses + + | Diagnosis | + + | Paresthesias/numbness - Primary Disturbance of skin sensation | + + documented in this encounter"
--- OUTSIDE RECORDS SUMMARY | ~2019-10-27 | XMS | Encounter Summary ---
Demographics + + + | Address | [address] | | | [place] [address] | + + + | Home Phone | | + + + | Preferred Language | Unknown | + + + | Marital Status | | + + + | Shinto Affiliation | 1041 | + + + | Race | Unknown | + + + | Ethnic Group | Unknown | + + + Author + + + | Author | [facility] | | | and Geovannyana | + + + | Organization | [facility] | | | and Geovannyana [...] Team Providers + +------+ + | Care Teaching Young Name | Role | Phone | + +------+ + | George Lynch | PCP | | | MD | | | + +------+ + Reason for Visit +--------+--------+ + | Reason | Onset | Comments | | | Date | | +--------+--------+ + | Other | 03/04/ | | | | 2018 | | +--------+--------+ + Encounter Details +--------+ + + + + | Date | Type | Department | Care Team | Description | +--------+ + + + + | 03/04/ | Telephone | [facility] [place] | Sunny Garcia, | Other | | 2018 | | PHYSIATRY [address] | PA-C [address] | | | | | [address] | [address] [place] | | | | | [place], [place] | [place] [address] | | | | | [address] | [phone] | | | | | [phone] | | | +--------+ + + + [...] this encounter Miscellaneous Notes Telephone Encounter - Charo Bhatti - 03/04/2018 3:51 PM PDTPatient calling back to inform PT was done with [facility] in [place]. She stated Sunny needed this information fo r injection approval. .Electronically signed by Charo Bhatti at 03/04 3:53 PM PDTdocumented in this encounter Plan of Treatment Not on filedocumented as of this encounter Visit Diagnoses Not on filedocumented in this encounter"
--- OUTSIDE RECORDS SUMMARY | ~2019-10-27 | XMS | Encounter Summary ---
Demographics + + + | Address | [address] | | | [place] [address] | + + + | Home Phone | | + + + | Preferred Language | Unknown | + + + | Marital Status | | + + + | Taoism Affiliation | 1041 | + + + | Race | Unknown | + + + | Ethnic Group | Unknown | + + + Author + + + | Author | [facility] | | | and Geovannyana | + + + | Organization | [facility] | | | and Geovannyana [...] Team Providers + +------+ + | Care Teletypist Name | Role | Phone | + [...] Cervical | NIRANJAN Junior | [address] | | | | | radiculopath | [address] | [place], | | | | | y Chronic | [place] | [place] | | | | | neck pain | [address]VE | [address] | | | | | Arm pain, | [place], | Phone: | | | | | right | [place] [address] | [phone] | | | | | Chronic pain | Phone: | Fax: | | | | | of right | [phone] | [phone] | | | | | hand S/P | Fax: | | | | | | carpal | [phone] | | | | | | tunnel [...] Cervical | NIRANJAN Junior | [address] | | | | | radiculopath | [address] | [place], | | | | | y Chronic | [place] | [place] | | | | | neck pain | [address]VE | [address] | | | | | Arm pain, | [place], | Phone: | | | | | right | [place] [address] | [phone] | | | | | Chronic pain | Phone: | Fax: | | | | | of right | [phone] | [phone] | | | | | hand S/P | Fax: | | | | | | carpal | [phone] | | | | | | tunnel [...] | +--------+ + + + + | 02/11/ | Hospital | [facility] | [place] Mar PA-C | Cervical | | 2019 | Encounter | [facility] [address] [facility] | radicul[facility]; | | | | [address] | [place], [place] | Chronic neck pain; | | | | [place] [address] | [address] | Arm pain, right; | | | | [phone] | | Chronic pain of | | [...] | MRI CERVICAL SPINE | Routin | 02/11/2019 | Cervical | Results for this | | WO CONTRAST | e | 2:22 PM | radiculopathy | procedure are in [...] encounter Results MRI Cervical Spine wo Contrast (02/11/2019 2:22 [...] neural foramen. Dictated and Signed by: Rangel Tijerina | | | Electronically signed: 02/11/2019 3:18 [...]
--- OUTSIDE RECORDS SUMMARY | ~2019-10-27 | XMS | Encounter Summary ---
Demographics + + + | Address | [address] | | | [place] [address] | + + + | Home Phone | | + + + | Preferred Language | Unknown | + + + | Marital Status | | + + + | Mandaeism Affiliation | [id number] | + + + | Race | Unknown | + + + | Ethnic Group | Unknown | + + + Author + + + | Author | Located Within [facility] | | | and Geov[facility]ana | + + + | Organization | Located Within [facility] | | | and [facility]ana | + [...] Team Providers + +------+ + | Care Tandem Operator Name | Role | Phone | + +------+ + | George Lynch | PCP | | | | | | + +------+ + Reason for Referral Evaluate & Treat (Routine) +--------+ + + + + + | Status | Reason | Specialty | Diagnoses / | Referred By | Referred To | | | | | Procedures | Contact | Contact | +--------+ + + + + + | Closed | Specialty | Physical | Diagnoses | | [facility] | | | Services | Medicine and | Disturbance | Coleman, | MD George | | | Required | Rehabilitatio | of skin | Denis Warren MD | [address] | | | | n | sensation | [address] | | | | | Procedures | [address] [place] | [place], [place] | | | | | [address] | [place] | [address] Phone: | | | | | &/SENS 1-2 | [id number] | [phone] | | | | | NRV CNDJ | Phone: | Fax: | | | | | PRECONF | [phone] | [phone] | | | | | [place] | Fax: | | | | | | [address] | [phone] | | | | | | &/SENS 3-4 | | | | | | | NRV CNDJ | | | | | | | PRECONF | | | | | | | [place] | | | | | | | [address] | | | | | | | &/SENS 7-8 | | | | | | | NRV CNDJ | | | | | | | PRECONF | | | | | | | [place] | | | | | | | EMG | | | +--------+ + + + + + Diagnostic/Screening (Routine) +--------+--------+ + + + + | Status | Reason | Specialty | Diagnoses / | Referred By | Referred To | | | | | Procedures | Contact | Contact | +--------+--------+ + + + + | Closed | | Radiology | Diagnoses | | [facility] | | | | | Neck pain | [place], | [address] | | | | | Paresthesias | Denis Warren, MD | [place], | | | | | /numbness | [address] | [place] | | | | | Procedures | [place] | [address] | | | | | MRI Cervical | [place], [place] | Phone: | | | | | Spine wo | [address] | [phone] | | | | | Contrast | Phone: | Fax: | | | | | MRI called | [phone] | [phone] | | | | | x1 | Fax: | | | | | | | [phone] | | +--------+--------+ + + + + Reason for Visit + + + | Reason | Comments | + + + | Back Pain | Low back pain and upper back pain | + + + Encounter Details +--------+---------+ + + + | Date | Type | Department | Care Team | Description | +--------+---------+ + + + | 12/12/ | Office | [facility] | Denis Cee | Fibromyalgia | | 2016 | Visit | PHYSIATRY [address] | [address] | (Primary Dx); | | | | [address] | [address] [place] | Sacroiliitis, not | | | | [place] | [address] | elsewhere classified | | | | [address] | | (HCC); DDD | | | | [phone] | | (degenerative disc | | | | | | disease), lumbar; | | | | | | Foraminal stenosis | | | | | | of lumbar region- | | | | | | mild left L5; Neck | | | | | | pain; | | | | | | Paresthesias/numbnes | | | | | | s | +--------+---------+ + + + Social History [...] + + + | Blood Pressure | 136/106 | 12/13/2015 7:45 AM | | | | | PDT | | + + + + + | Pulse | 89 | 12/13/2015 7:45 AM | | | | | PDT [...] + + + + | Weight | 66 kg (145 lb 9.6 | 12/13/2015 7:45 AM | | | | oz) | PDT | | + + + + + | Height | 152.4 cm (5') | 12/13/2015 7:45 AM | | | | | PDT | | + + + + + | Body Mass Index | 28.44 | 12/13/2015 7:45 AM | | | | | PDT | | + + + + + documented in this encounter Progress Notes Denis Cee MD - 12/13/2015 7:48 AM PDT CHIEF COMPLAINT: Chief Complaint Patient presents with Back Pain Low back pain and upper back pain HISTORY OF PRESENT ILLNESS: The patient is a 55 y.o. female being seen today for follow up complaint of low back pain with weakness in both legs. She was seen by my PA-Clark marcial in the past for low back pain and it was recommended she receive bilateral SI joint injections. This was performed by me on 10/23/2015, she reports excellent relief of her low er back symptoms that lasted for approximately 3 weeks times. She continues to complain of generalized weakness, difficulty sleeping, numbness to the pia ateral arms/hand, left lower leg pain with walking. She also continues to report weakness t o the left leg. The patient reports that she has been dealing with pain for the past two yea rs but reports that her symptoms have been worsening and she is now also dealing with weakne ss in the legs, chronic headaches and memory loss. She reports that her biggest issue of con cern is the feeling of loss of coordination in both legs. She was given a prescription of gabapentin but reports that she was having sensation of "un controllable limbs" so we recommended that she discontinue taking this. She does have fibrom yalgia. She was also told to get a sleep study with her PCP but has not done this. Since the symptoms began she reports the symptoms have been worsening steadily with the exc eption of that brief period of pain relief following the steroid injections. She rates the pain as moderate. Her symptoms worsen with walking, bending, twisting, kneeling. Her sympto ms improve with rest. She states that she is never completely pain free. The patient does not describe numbness of the legs, but reports having a tingling sensation upon palpation and numbness intermittently to the arms. She reports the majority of her nu mbness is in the thumb and pointer finger. She does report weakness of the arms and legs, e specially the right arm and left leg. She does not have bowel and bladder dysfunction. She does not have saddle anesthesia. Treatments for these complaints have included physical therapy, massage therapy, use of joann cotics, NSAIDS and muscle relaxants. She has also had the injections as above. Patient's medications, allergies, past medical, surgical, social and family histories were reviewed and updated as appropriate. CURRENT MEDICATIONS: Current Outpatient Prescriptions Medication Sig Dispense Refill acetaminophen (TYLENOL) 325 mg tablet Take 325 mg by mouth as needed. aspirin 325 mg tablet Take 325 mg by mouth as needed. tolnaftate (TINACTIN) 1% cream Apply topically 2 times daily. No current facility-administered medications for this visit. ALLERGIES: Allergies Allergen Reactions Latex Rash REVIEW OF SYSTEMS A multisystem review of system checklist was reviewed with the patient and shows only the p ain and/or parasthesias and other complaints as in HPI. All remaining review of systems was negative. PHYSICAL EXAMINATION: Filed Vitals: 12/13/15 0745 BP: 136/106 Pulse: 89 PainSc: 6 Body mass index is 28.44 kg/(m^2). GENERAL: The patient is well developed and well nourished. She does not appear uncomfortab le when seated. HEENT: HEAD/FACE: EYES: Normocephalic and atraumatic. There are no areas of recent trauma. Normal sclerae without icterus. SKIN Limited skin exam shows no significant rashes or lesions. There are not scars in the lumbar region. CHEST: The patient is in no acute respiratory distress with unlabored respirations. HEART: There is not lower extremity edema. ABDOMEN: The patient is mildly overweight. NEUROLOGIC: The patient is awake, alert, and oriented to time, place, person. She follows simple and complex commands. Her speech is fluent. She comprehends speech well. She has no apparent deficits with short or technician terminal and repeater memory. She has appropriate fund of knowledge Cranial nerves 2-12 appear grossly intact. Sensory exam does not show diminished sensation to light touch in the lower extremities at this time. She did report diminished sensation in the first to third digits of the right banegas nd. Tinel's and Phalen's tests were positive on the right. REFLEX: RIGHT LEFT PATELLAR 2+ 2+ ACHILLES 2+ 2+ PLANTAR Downgoing Downgoing *She does have mildly positive Braga's sign. Negative Babinski's. *No clonus MUSCULOSKELETAL There is no major palpable deformity of the spine. Straight leg raise and slump-sit are negative. Lenny's maneuver and impingement testing were negative for any groin pain. There was tenderness to palpation over the bilateral gre ater trochanters and sacral sulci. The patient localized the majority of the pain to the cecile mbosacral region and down the legs. Lumbar facet loading was negative. Strength testing sh owed 5/5 strength throughout the lower extremities. The patient was able to heel and toe wa lk without difficulty. There was no redness, effusion, warmth or joint line tenderness in t he knees or ankles. Range of motion testing of the cervical spine was relatively unremarkable other than report ed pain at end range. Spurling sign was negative. Shoulder examination shows decreased rang e of motion on the right with external rotation, internal rotation and abduction. Impingem ent testing was mildly positive on the right, negative on the left. There was no tenderness over the bicipital groove or over the AC joint. Speed's test was negative. Empty can test was negative. Strength testing, including strength testing of the infraspinatus, supraspi natus and subscapularis, in bilateral upper extremities showed 5/5 strength with no focal we akness. RADIOGRAPHIC REVIEW: The patient's imaging was reviewed in detail with the patient today during the visit. Lumb ar MRI from 08/28/2015 shows mild lumbar DDD with foraminal stenosis at L5/S1 on the left. X -rays of the neck from 11/13/15 are quite unremarkable. ASSESSMENT: 1. Fibromyalgia 2. Sacroiliitis, not elsewhere classified (HCC) 3. DDD (degenerative disc disease), lumbar 4. Foraminal stenosis of lumbar region- mild left L5 5. Neck pain 6. Paresthesias/numbness PLAN: 1. The patient was informed that it appears that her symptoms are primarily related to the fibromyalgia she has been diagnosed with in the past. The patient was informed that evangelista brandon fibromyalgia is very hard to treat and can cause many of the symptoms she is describi ng of chronic widespread pain, intermittent feelings of weakness and tingling, mental confus ion or "fibro fog" and even labile mood. She does know that improving sleep and mild to mod erate daily exercise can help with fibromyalgia symptoms. 2. Examination was fairly unremarkable today other than mildly positive Braga's sign in t he upper extremities and diffuse weakness which appeared to affect primarily the right upper extremity. The weakness may have been effort dependent but seemed consistent in the right u pper extremity. She did also have positive Tinel's and Phalen's test on the right. Given th e reports of paresthesias, balance and coordination issues and the perceived weakness in the upper and lower extremities I did feel that additional work up was warranted. Advanced deep ging of the cervical spine has not previously been obtained and I feel that would be a good place to start. 3. I would also like her to have an EMG of the bilateral upper extremities, or at minimum t he right upper extremity. She was informed that I would like her to see my colleague Dr. Mynor Shukla to have this performed. 4. Medications were discussed with the patient. She is reportedly unable to take OTC NSAID' s due to gastric ulcers and a family history of kidney issues. She has tried gabapentin and amitriptyline in the past but stopped them due to undesirable side effects. We discussed t hat Cymbalta may be a good medication option for her and a prescription for Cymbalta was giv en today. 5. She did have good benefit with the SI joint injections but apparently she feels that th e injections may have contributed to her weakness. She also reports that the pain relief la sted only a month or so. I would not recommend repeating injections at this time but may co nsider it again in the future. 6. Given her widespread pain and positive response to the steroids I did consider the diag nosis of polymyalgia rheumatica. It may be worth doing lab work to evaluate for that more i n the future. 7. It does also seem that another issue she is really struggling with is depression with a nxiety. If this is not already being treated aggressively it is something that she should s blackfeet treatment for. ELECTRONICALLY EDITED AND SIGNED BY: Denis Cee MD, 12/13/2015 Scribed by: Hollie Gibson MA for Dr. Denis Cee on 12/13/2015 CC: Dr. Lynch [facility] umented in this encounter Plan of Treatment + + +--------+ + + | Name | Type | Priori | Associated Diagnoses | Order Schedule | | | | ty | | | + + +--------+ + + | * [facility] [place] | Outpatient | Routin | | Ordered: 12/16/2015 | | Rehabilitation | Referral | e | Paresthesias/numbnes | | | Medicine - AMB | | | s | | | Referral | | | | | + + +--------+ + + documented as of this encounter Results MRI Cervical Spine wo Contrast (12/27/2015 3:02 PM PDT) + + | Specimen | + + | | + + + + + | Narrative | Performed At | + + + | MRI CERVICAL SPINE WO CONTRAST. 12/27/2015 3:02 PM HISTORY: | [facility] | | Chronic neck and arm pain and paresthesias. COMPARISON: Cervical | [facility] | | spine x-ray 11/13/2015 TECHNIQUE: Multiplanar, multisequence MRI | [facility] | | images of the cervical spine [...] ST. | [address] | [place], [place] | [phone] | | [facility] | | [id number] | | | - IMAGING | | | | + + + + + documented in this encounter Visit Diagnoses + + | Diagnosis | + + | Fibromyalgia - Primary Mylagia and myositis, unspecified | + + | Sacroiliitis, not elsewhere classified (HCC) Sacroiliitis, not elsewhere classified | + + | DDD (degenerative disc disease), lumbar Degeneration of lumbar or lumbosacral | | intervertebral disc | + + | Foraminal stenosis of lumbar region- mild left L5 Spinal stenosis, lumbar region, | | without neurogenic claudication | + + | Neck pain Cervicalgia | + + | Paresthesias/numbness Disturbance of skin sensation | + + documented in this encounter
--- OUTSIDE RECORDS SUMMARY | ~2019-10-27 | XMS | Encounter Summary ---
Demographics + + + | Address | [address] [place] [address] | | | [place] [address] | + + + | Home Phone | | + + + | Preferred Language | Unknown | + + + | Marital Status | | + + + | Congregation Affiliation | CAT | + + + [...] Team Providers + +------+ + | Care Branch Banker Name | Role | Phone | + [...] [address] | | | | | | [place], [place] | | | | | | [address] | | | +--------+ + + + [...] as of this encounter Progress Notes Interface, Metal Mockup Maker In - 08/29/2006 1:01 AM PDT [address] [address] [facility] February 17, 1993 CAROLE KEITH MD [facility] [address] [place] [id number] RE:Maritza Malone MR#:[id number] Dear Doctor Cipriano: Thank [...] her home life. 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 Apparently, x-rays were done in [place] of her lumbosacral spine and sacrum, and those were read as unremarkable. She also had a neurology evaluation in [place] which again showed a nonfocal examination. This [...] read as normal by the doctors in [place]. Our thought would be to go ahead [...] | | | | | [place], | | | | | | [place] [address] | | | | | | [phone] | | | | | | | | +--------+---------+ + + + documented as of this encounter Visit Diagnoses Not on filedocumented in this encounter"
--- OUTSIDE RECORDS SUMMARY | ~2019-10-27 | XMS | Encounter Summary ---
Demographics + + + | Address | [address] | | | [place] [address] | + + + | Home Phone | | + + + | Preferred Language | Unknown | + + + | Marital Status | | + + + | Orthodox Affiliation | CAT | + + + [...] Team Providers + +------+ + | Care Sports Marketing Coordinator Name | Role | Phone | [...] as of this encounter Progress Notes Interface, Bridge/Structure Inspection Team Leader In - 10/16/2005 3:01 AM PDTClinic Date: [...] particular time. Oracio Carson M.D. [facility] / [id number] / [id number] / [id number] / Tdocumented in this encounter Plan of Treatment +--------+---------+ + + + | Date | Type | Specialty | Care Team | Description | +--------+---------+ + + + | 12/29/ | Office | Ophthalmology | Martha Savage MD | | | 2019 | Visit | | [address] | | | | | | [place], | | | | | | [place] [address] | | | | | | [phone] | | | | | | | | +--------+---------+ + + + documented as of this encounter Visit Diagnoses Not on filedocumented in this encounter"
--- OUTSIDE RECORDS SUMMARY | ~2019-10-27 | XMS | Encounter Summary ---
Demographics + + + | Address | [address] [address] | | | [place] [address] | + + + | Home Phone | | + + + | Preferred Language | Unknown | + + + | Marital Status | | + + + | Islam Affiliation | CAT | + + + [...] Team Providers + +------+ + | Care Home Administrator Name | Role | Phone | [...] + + | 11/23/ | Hospital | [facility] [address] | Anupama Naranjo | | | 2012 | Encounter | [address] | MD Kelvin [address] | | | | | [facility] | [address] [place] | | | | | Elyse Nelson | [place], [place] | | | | | (MNP/[facility]) | [address] | | | | | [place], [place] | [phone] | | | | | [address] | | | | | | [phone] | | | +--------+ + + + [...] office to get yo ur questions answered. [phone] during business hours [phone] after hours and weekends or holidays [facility] After EAR SURGERY Follow [...] Thursday from 8:00 4:30, call Otolaryngology Clinic [phone]. After hours, weekend and holidays call the Hospital Sample Patternmaker at [phone]. Ask for them to page your doctor. [...] | | | | | [place], | | | | | | [place] [address] | | | | | | [phone] | | | | | | | [...] Anupama Mcpherson M.D. | | | | Real Estate Accountant(s): Azucena Ceron MD | | | | [...] | | KD / HS | | [id number] / [id number] / [id number] / | | | | | + [...]
--- OUTSIDE RECORDS SUMMARY | ~2019-10-27 | XMS | Encounter Summary ---
Demographics + + + | Address | [address] | | | [place] [address] | + + + | Home Phone | | + + + | Preferred Language | Unknown | + + + | Marital Status | | + + + | Catholic Affiliation | 1041 | + + + | Race | Unknown | + + + | Ethnic Group | Unknown | + + + Author + + + | Author | [facility] | | | and Geovannyana | + + + | Organization | [facility] | | | and Geovannyana [...] Team Providers + +------+ + | Care Construction Mgr Name | Role | Phone | + [...] Specialty | Physical | Diagnoses | | | | | Services | Therapy | | Brody, | | | | Required | | Sacroiliitis | Yari | | | | | | , not | PA-C [address] | | | | | | elsewhere | [address], | | | | | | classified | [address] | | | | | | (HCC) DDD | [place] | | | | | | (degenerativ | [id number] | | | | | | e disc | Phone: | | | | | | disease), | [phone] | | | | | | lumbar | Fax: | | | | | | Foraminal | [phone] | | | | | | stenosis of | | | | | | | lumbar | | | | | | | region | | | | | | | Fibromyalgia | | | | | | | Procedures | | | | | | | Faxed 11/21 | | | +--------+ + + + + + Reason for Visit + + + | Reason | Comments | + + + | Follow-up | post bilateral SI on 10/23/15 | + + + | Weakness | L>R legs | + + + Encounter Details +--------+---------+ + + + | Date | Type | Department | Care Team | Description | +--------+---------+ + + + | 11/12/ | Office | [facility] | Brody, | Sacroiliitis, not | | 2015 | Visit | PHYSIATRY [address] | NIRANJAN [address] | elsewhere classified | | | | [address] | [address] | ([facility]) (Primary Dx); | | | | [place], [place] | [place] [address] | DDD (degenerative | | | | [address] | [phone] | disc disease), | | | | [phone] | | lumbar; Foraminal | | | | | | stenosis of lumbar | | | | | | region- mild left | | | | | | L5; Fibromyalgia; | | | | | | Neck pain | +--------+---------+ + + + Social History [...] + + + | Blood Pressure | 146/98 | 11/13/2015 10:42 AM | | | | | PDT | | + + + + + | Pulse | 89 | 11/13/2015 10:42 AM | | | | | PDT [...] Weight | 65.3 kg (144 lb) | 11/13/2015 10:42 AM | | | | | PDT | | + + + + + | Height | 152.4 cm (5') | 11/13/2015 10:42 AM | | | | | PDT | | + + + + + | Body Mass Index | 28.12 | 11/13/2015 10:42 AM | | | | | PDT | | + + + + + documented in this encounter Patient Instructions Patient Instructions Yari Skinner PA-C - 11/13/2015 11:07 AM PDT1) Start the gabape ntin - rx at [facility] Gabapentin: Pain medicine that works on the nerves of the body. Most effectiv e when you start off with low dose and slowly titrate up. Therapeutic dose is 300mg three times per day. Begin with 300mg at bedtime x 5 days, increase to 300mg twice daily x 5 days, increase to 300mg three times/day. If no response after 2 weeks, titrate up to 1200mg three times per day, maximum dose. Fibromyalgia: Chronic musculoskeletal pain syndrome characterized by widespread p ain and multiple tender points. Can be associated with fatigue, stiffness, swelling and pa resthesia s. Patient can also have depression, anxiety, sleep disturbances. Treatment consists of exercises, massage, trigger point injections. 2) Sleep Study with your primary care doctor 3) I want to get an xray of your neck 4) Trigger Point injections into your neck - Ice the area as needed 20 minutes per hour. Multiple times as needed over the next few d ays. - Watch for signs of infection (redness around injection site, swelling, fever) - No strenuous activity for 24-48 hours after the procedure. - Please call the office with questions or concerns. 5) Please start physical therapy 6) Look into [facility] [address] [facility] [place] [address] documented in this encounter Progress Notes Yari Skinner PA-C - 11/13/2015 10:44 AM PDTFormatting of this note might be differe nt from the original. CHIEF COMPLAINT: Chief Complaint Patient presents with Follow-up post bilateral SI on 10/23/15 Weakness L>R legs HISTORY OF PRESENT ILLNESS: The patient is a 55 y.o. female being seen today for follow up complaint of low back pain. She saw me in the past and it was recommended she receive a bi lateral SI joint injection. This was done 10/23/2015, she reports excellent relief as she no longer has back pain. She continues to complaint of generalized weakness, difficulty sleep ing, numbness to the bilateral arms/hand, left lower leg pain with movements. She continues to have weakness to the left leg. She was given a prescription of gabapentin but has not started this. She does have fibromy algia. She was also told to get a sleep study with her PCP but has not done this. Since the symptoms began, she has noticed that symptoms have been improving. She rates the pain as moderate. Her symptoms worsen with walking, bending, twisting, kneeling. Her sympt oms improve with rest. The patient does not describe numbness of the legs, but states to have a tingling sensation upon palpation and numbness intermittently to the arms. She does report weakness of the l egs. She does not have bowel and bladder dysfunction. She does not have saddle anesthesia . Treatments for these complaints have included physical therapy this year but this was on he r shoulder, massage therapy, use of narcotics, NSAIDS and muscle relaxer's. She states to have had pedicure before and afterwards it has helped her sleep. Patient's medications, allergies, past medical, surgical, social and family histories were reviewed and updated as appropriate. CURRENT MEDICATIONS: Current Outpatient Prescriptions Medication Sig Dispense Refill acetaminophen (TYLENOL) 325 mg tablet Take 325 mg by mouth as needed. aspirin 325 mg tablet Take 325 mg by mouth as needed. gabapentin (NEURONTIN) 300 mg capsule 1 tab PO nightly x 5 days, then increase to 1 tab PO BID x 5 days. If continue to tolerate well, increase to 1 tab PO TID. 120 capsule 2 tolnaftate (TINACTIN) 1% cream Apply topically 2 times daily. No current facility-administered medications for this visit. ALLERGIES: Allergies Allergen Reactions Latex Rash REVIEW OF SYSTEMS A multisystem review of system checklist was reviewed with the patient and shows only the p ain and/or parasthesias and other complaints as in HPI. All remaining review of systems was negative. PHYSICAL EXAMINATION: Filed Vitals: 11/13/15 1042 BP: 146/98 Pulse: 89 PainSc: 3 PainLoc: Leg Body mass index is 28.12 kg/(m^2). GENERAL: The patient is well developed and well nourished. She does not appear uncomfortab le when seated. HEENT: HEAD/FACE: EYES: EARS: NASOPHARNYX: OROPHARNYX: Normocephalic and atraumatic. There are no areas of recent trauma. Normal sclerae without icterus. No drainage or tenderness. Clear without drainage. Clear without erythema. SKIN Limited skin exam shows no significant rashes or lesions. There are not scars in the lumbar region. CHEST: The patient is in no acute respiratory distress with unlabored respirations. HEART: There is not lower extremity edema. ABDOMEN: The patient is not overweight. NEUROLOGIC: The patient is awake, alert, and oriented to time, place, person. She follows simple and complex commands. Her speech is fluent. She comprehends speech well. 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 She has appropriate fund of knowledge Cranial nerves 2-12 appear grossly intact. Sensory exam does not show diminished sensation to light touch in the lower extremities. REFLEX: RIGHT LEFT PATELLAR 1+ 1+ ACHILLES 0 0 MUSCULOSKELETAL There is no major palpable deformity [...] motion testing of the cervical spine was unremarkable. Spurling sign was negative. Shoulder examination shows well preserved range of motion with external rotation, internal rotation and abduction. Impingement testing was Negative. There was no tenderness over th e bicipital groove or over the AC joint. Speed's test was Negative. Empty can test was Nega tive. Strength testing, including strength testing of the infraspinatus, supraspinatus an d subscapularis, in bilateral upper extremities showed 5/5 strength with no focal weakness. RADIOGRAPHIC REVIEW: The patient's imaging was reviewed in detail with the patient today during the visit. Lumb ar MRI from 08/28/2015 shows mild lumbar DDD with foraminal stenosis at L5/S1 on the left. ASSESSMENT: 1. Sacroiliitis, not elsewhere classified (HCC) 2. DDD (degenerative disc disease), lumbar 3. Foraminal stenosis of lumbar region- mild left L5 4. Fibromyalgia 5. Neck pain PLAN: 1. Start gabapentin that was sent to your pharmacy for fibromyalgia 2. Get a sleep study through your PCP 3. Please get xray of the neck done 4. Trigger point injections done today After the patient gave consent for the procedure the trigger point injections were performe d using sterile no-touch technique and a 25 gauge 1.5 inch needle. The areas were prepped w ith alcohol. The needle was then advanced into 8 different trigger points and a total of 4 mL each of 0.5% bupivicaine and 1% lidocaine was injected divided between the 8 sites. The patient was instructed to ice the areas and to watch for signs of infection. 5. Please start PT, prescription sent to [facility] in [place] 6. Look into Reflexology 7. Please start wearing SI belt. ELECTRONICALLY SIGNED BY: Yari Skinner PA-C, 11/13/2015 CC: Dr. Lynch documented in this encounter Plan of Treatment + + +--------+ + + | Name | Type | Priori | Associated Diagnoses | Order Schedule | | | | ty | | | + + +--------+ + + | * [facility] | Outpatient | Routin | Sacroiliitis, not | Ordered: 11/13/2015 | | Therapy - AMB | Referral | e | elsewhere classified | | | Referral | | | ([facility]) DDD | | | | | | (degenerative disc | | | | | | disease), lumbar | | | | | | Foraminal stenosis | | | | | | of lumbar region- | | | | | | mild left L5 | | | | | | Fibromyalgia | | + + +--------+ + + documented as of this encounter Results XR Cervical Spine 4 or 5 Vws (11/13/2015 11:59 AM PDT) + + | Specimen | + + | | + + + + + | Narrative | Performed At | + + + | CERVICAL SPINE: 11/13/2015 11:59 AM CLINICAL HISTORY: neck pain | [facility] | | COMPARISON: None FINDINGS: Upright AP, lateral and lateral | . [facility] | | flexion-extension views of the cervical spine. Cervical spine is | [facility] | | imaged to [id number]. Vertebral body [...] + | Prashanth, Rad Results In - 11/13/2015 1:57 PM PDT [...] | + + + + + | [facility]. | [address] | [place] | [phone] | | [facility] | | [address] | | | - IMAGING | | | | + + + + + documented in this encounter Visit Diagnoses + + | Diagnosis | + + | Sacroiliitis, not elsewhere classified (HCC) - Primary Sacroiliitis, not elsewhere | | classified | + + | DDD (degenerative disc disease), lumbar Degeneration of lumbar or lumbosacral | | intervertebral disc | + + | Foraminal stenosis of lumbar region- mild left L5 Spinal stenosis, lumbar region, | | without neurogenic claudication | + + | Fibromyalgia Mylagia and myositis, unspecified | + + | Neck pain Cervicalgia | + + documented in this encounter Administered Medications + + + +-------+------+ + | Medication Order | MAR | Action | Dose | Rate | Site | | | Action | Date | | | | + + + +-------+------+ + | bupivacaine (MARCAINE) 0.5% | Given by | 11/13/19 | 5 mLs | | Other | | injection 5 mL 5 mL, | Other | 16 11:35 | | | (Comment | | Subcutaneous, ONCE, [place] 11/13/15 | | AM PDT | | | ) | | at 1130, For 1 dose | | | | | | + + + +-------+------+ + +---+---+ | | | +---+---+ + + + +-------+---+ + | lidocaine 1% injection 5 mL 5 | Given by | 11/13/19 | 5 mLs | | Other | | mL, Intradermal, ONCE, Tue | Other | 16 11:37 | | | (Comment | | 11/13/15 at 1130, For 1 dose | | AM PDT | | | ) | + + + +-------+---+ + +---+---+ | | | +---+---+ documented in this encounter"
--- OUTSIDE RECORDS SUMMARY | ~2019-10-27 | XMS | Encounter Summary ---
Demographics + + + | Address | [address] | | | [place] [address] | + + + | Home Phone | | + + + | Preferred Language | Unknown | + + + | Marital Status | | + + + | Episcopal Affiliation | CAT | + + + [...] Team Providers + +------+ + | Care Hospitality Housekeeper Name | Role | Phone | + [...] | | | | | | Katherine [place], | | | | | | [place] [address] | | | | | | [phone] | | | | | | | | +--------+---------+ + + + documented as of this encounter Visit Diagnoses Not on filedocumented in this encounter"
--- OUTSIDE RECORDS SUMMARY | ~2019-10-27 | XMS | Encounter Summary ---
Demographics + + + | Address | [address] [place] [address] | | | [place] [address] | + + + | Home Phone | | + + + | Preferred Language | Unknown | + + + | Marital Status | | + + + | Methodist Affiliation | 1041 | + + + | Race | Unknown | + + + | Ethnic Group | Unknown | + + + Author + + + | Author | [facility] | | | and Geovannyana | + + + | Organization | [facility] | | | and Geovannyana [...] Team Providers + +------+ + | Care Pot Fluxer Name | Role | Phone | + +------+ + | George Lynch | PCP | | | MD | | | + +------+ + Encounter Details +--------+ + + + + | Date | Type | Department | Care Team | Description | +--------+ + + + + | 03/08/ | Documentati | [facility] | Sunny Garcia, | | | 2018 | on | PHYSIATRY [address] | PA-C [address] | | | | | [address] | [address] [place] | | | | | [place] | [place] [address] | | | | | [address] | [phone] | | | | | [phone] | | | +--------+ + + + [...] documented as of this encounter Progress Notes Sunny Garcia PA-C - 03/08/2018 8:47 AM PSTI have reviewed her physical therapy note from [facility] in [place]. Patient had completed 8 visits of PT and was discharged due to "no progress in symptoms wit h therapy." Her lumbar MRI shows rather large facet effusions from L3-S1 and facet injections were orde red at previous visit. Sunny Garcia PA-C, 03/08/18 documented in this en counter Plan of Treatment Not on filedocumented as of this encounter Visit Diagnoses Not on filedocumented in this encounter
--- OUTSIDE RECORDS SUMMARY | ~2019-10-27 | XMS | Encounter Summary ---
Demographics + + + | Address | [address] | | | [place] [address] | + + + | Home Phone | | + + + | Preferred Language | Unknown | + + + | Marital Status | | + + + | Uatsdin Affiliation | [id number] | + + + | Race | Unknown | + + + | Ethnic Group | Unknown | + + + Author + + + | Author | [facility] | | | and Geovannyana | + + + | Organization | [facility] | | | and Geovanynana | + + + | Address | Unknown | + + + | Phone | Unavailable | + + + Support + + +---------+ + | Name | Relationship | Address | Phone | + + +---------+ + | Golden Malone | [place]ISON | Unknown | | + + +---------+ + Care Team Providers + +------+ + | Care Breeding Technician Name | Role | Phone | + +------+ + | George Lynch | PCP | | | MD | | | + +------+ + Reason for Visit + + + | Reason | Comments | + + + | Back Pain | low back pain radiating into L>R leg | + + + Evaluate & Treat (Routine) +--------+--------+ + + + + | Status | Reason | Specialty | Diagnoses / | Referred By | Referred To | | | | | Procedures | Contact | Contact | +--------+--------+ + + + + | Closed | | Physical | Diagnoses | Mau, | Coleman, | | | | Medicine and | Low back | Mike Gray, | Denis Warren MD | | | | Rehabilitatio | pain Left | [address] | [address] | | | | n | leg pain | [address] | [facility] | | | | | | [place], | [place], [place] | | | | | | [place] | [address] Phone: | | | | | | [phone] | [phone] | | | | | | Phone: | Fax: | | | | | | [phone] | [phone] | | | | | | Fax: | | | | | | | [phone] | | +--------+--------+ + + + + Encounter Details +--------+---------+ + + + | Date | Type | Department | Care Team | Description | +--------+---------+ + + + | 09/25/ | Office | [facility] | Carrillopedrojohanny, | Sacroiliitis, not | | 2015 | Visit | PHYSIATRY [address] | NIRANJAN Greenberg [address] | elsewhere classified | | | | [address] | [address] | ([facility]) (Primary Dx); | | | | [place], [place] | [place] [address] | DDD (degenerative | | | | [address] | [phone] | disc disease), | | | | [phone] | | lumbar; Foraminal | | | | | | stenosis of lumbar | | | | | | region- mild left | | | | | | L5; Fibromyalgia | +--------+---------+ + + + Social History [...] + + + | Blood Pressure | 120/94 | 09/26/2015 2:13 PM | | | | | PDT | | + + + + + | Pulse | 94 | 09/26/2015 2:13 PM | | | | | PDT [...] Weight | 65.3 kg (144 lb) | 09/26/2015 2:13 PM | | | | | PDT | | + + + + + | Height | 152.4 cm (5') | 09/26/2015 2:13 PM | | | | | PDT | | + + + + + | Body Mass Index | 28.12 | 09/26/2015 2:13 PM | | | | | PDT | | + + + + + documented in this encounter Patient Instructions Patient Instructions Yari Skinner PA-C - 09/26/2015 2:45 PM PDT1) Start the gabape ntin Gabapentin: Pain medicine that works on the nerves of the body. Most effective when you start off wit h low dose and slowly titrate up. Therapeutic dose is 300mg three times per day. Begin with 300mg at bedtime x 5 days, increase to 300mg twice daily x 5 days, increase to 300mg three times/day. If no response after 2 weeks, titrate up to 1200mg three times per d ay, maximum dose. Fibromyalgia: Chronic musculoskeletal pain syndrome characterized by widespread pain and multiple tender points. Can be associated with fatigue, stiffness, swelling and paresthesia s. Patient can also have depression, anxiety, sleep disturbances. Treatment consists of exercises, mas danny, trigger point injections. 2) Sleep Study with your primary care doctor 3) Steroid injection with Dr. Cee Sacoiliitis: This is the term used to describe sacroiliac joint pain which connect the sacrum (very end of the spine) and pelvic bone. It occurs when there is movement of one pelvic bone on the other or a decrease in joint mobility with bending and twisting movements, mis-stepping, or when there is a leg length discrepancy. There can be pain to the buttocks region, into the groin or posterior thigh. Treatment consists of rest, physical therapy, Sacroiliac Belt, kevin roid joint injections into the sacroiliac joint. Steroids are a very strong anti-inflammatory, this helps reduce pain by reducing swelling. Complications of steroids are bleeding, infection, and an increase of blood sugars if you a re diabetic. director long term care risk can lead to osteoporosis which is why we limited the number of injections to 3 times per year. With a sacroiliac joint injection, the steroid is placed i nside this joint. The procedure is about 20 minutes long. You will lie on your back while x-rays are taken. Once the region is marked, it is numbed and then injected with steroids. Follow-up at the hospital thirty minutes before [...] of the procedure you must provide a mechanic driver to take you home. For all procedur es it is recommended that someone else drive you home. documented in this encounter Progress Notes Yari Skinner PA-C - 09/26/2015 2:10 PM PDTFormatting of this note might be differe nt from the original. CHIEF COMPLAINT: Chief Complaint Patient presents with Back Pain low back pain radiating into L>R leg HISTORY OF PRESENT ILLNESS: The patient is a 55 y.o. female being seen today for complaint s of all over pain, but has been referred for back pain with radiation into the legs, left g reater than right. She reports having ongoing pain for the last 20 years, but really in the last year her pain has worsened to an intensity that it's just not worth living anymore.She cannot pin point a specific injury or incident that starting all this pain, but thinks it's due to childbirth and a leg-length discrepancy. Since the symptoms began, she has noticed that symptoms have been insidious. She describes the pain as a aching, dull, sharp and shooting feeling. She rates the pain as moderate. Her symptoms worsen with walking, bending, twisting, kneeling. Her symptoms improve with rest. The patient also describes leg symptoms that occur on both sides. The leg symptoms account for greater than or equal to 50% of her symptoms. The leg symptoms are constant to the ent kim legs, but the left leg is worse than the right. The patient does not describe numbness of the legs, but states to have a tingling sensation upon palpation. She does report weakness of the legs. She does not have bowel and bladde r dysfunction. She does not have saddle anesthesia. Treatments for these complaints have included physical therapy this year, massage therapy, use of narcotics, NSAIDS and muscle relaxer's. Patient's medications, allergies, past medical, surgical, social and family histories were reviewed and updated as appropriate. PAST MEDICAL HISTORY: Past Medical History Diagnosis Date Chest pain Depression Other abdominal hernia unspecified type Stomach ulcer Acquired deformity of leg unequal leg length Fatigue Gastritis Hyperlipoproteinemia type II A Lumbar spondylolysis Mononeuritis Neuralgia, postherpetic Otitis media, chronic nonsuppurative, right Perimenopausal Urge incontinence of urine Otogenic vertigo Vitamin D deficiency Anxiety GERD (gastroesophageal reflux disease) RA (rheumatoid arthritis) ([facility]) Fibromyalgia Sacroiliitis, not elsewhere classified ([facility]) 09/26/2015 DDD (degenerative disc disease), lumbar 09/26/2015 Foraminal stenosis of lumbar region- mild left L5 09/26/2015 Fibromyalgia 09/26/2015 PAST SURGICAL HISTORY: Past Surgical History Procedure Laterality Date Rotator cuff repair Appendectomy Small intestine surgery Foot surgery Head surgery CURRENT MEDICATIONS: Current Outpatient Prescriptions Medication Sig [...] reports that she has never smoked. She does not have any smokeless tobacco his tory on file. She reports that she drinks alcohol. She reports that she does not use illicit drugs. FAMILY HISTORY: Family History Problem Relation Age of Onset Arthritis Mother Diabetes Father REVIEW OF SYSTEMS GENERALLY: No fever, + night sweats, no anemia, + fatigue, no recent profound weight ch anges. EYES: + eye problems,+ use of corrective lenses, no eye injury, no double vision, no blin dness. EARS, NOSE, AND THROAT: No changes in taste or smell, + hearing difficulty, + ringing in the ears,+ ear drainage, no dizziness, no voice changes, no difficulty swallowing, no signif icant snoring, no sleep apnea, + sinus problems, + major dental work. NEUROLOGICALLY: Please see the review of systems discussed above in the history of present illness. In addition, the patient has + numbness/pain of arms, + numbness/pain of legs, + awake with numbness/pain, +weakness, + muscle aching, + coordination difficulty, + change in walk, + back injury, + pain in neck, + pain in back, + headaches, + memory loss, + confus ion. PSYCHIATRIC: + depression, + sleep disorders, + anxiety, no bipolar disorder, no psycho tic episodes. CARDIOVASCULAR: No heart attacks, + cough, no heart murmur, no heart fluttering, + chest pain, + ankle swelling. LUNG DISEASE: No shortness of breath, no cough, no tuberculosis, no bloody cough, no as thma, no emphysema/COPD. GASTROINTESTINAL: No bowel disease, no nausea or vomiting, no rectal bleeding, + constipa tion, no stool incontinence, no liver disease, no gallbladder disease, + abdominal pain, no ulcers. KIDNEY DISEASE: + urinary frequency, + painful or difficult urination, no incontinence. ENDOCRINE: No diabetes, no thyroid disease, no osteopenia or osteoporosis, no breast drai nage. SKIN: No breast lumps, + skin changes,+ rashes, + itches. HEMATOLOGIC/LYMPHATIC: No enlarged lymph nodes, no easy or unusual bleeding, no personal history of cancer. RHEUMATOLOGIC: + joint arthritis, +rheumatoid arthritis. PHYSICAL EXAMINATION: Filed Vitals: 09/26/15 1413 BP: 120/94 Pulse: 94 PainSc: 4 PainLoc: Back Body mass index is 28.12 kg/(m^2). GENERAL: [...] has no apparent deficits with short or chcf memory. She has appropriate fund of knowledge [...] tenderness in t he knees or ankles. RADIOGRAPHIC REVIEW: The patient's imaging was reviewed in detail with the patient today during the visit. Lumb ar MRI from 08/28/2015 shows mild lumbar DDD with foraminal stenosis at L5/S1 on the left. ASSESSMENT: 1. Sacroiliitis, not elsewhere classified (HCC) 2. DDD (degenerative disc disease), lumbar 3. Foraminal stenosis of lumbar region- mild left L5 4. Fibromyalgia PLAN: 1. We discussed in detail her widespread pain. I do think a lot of her pain is coming fro m the diagnostic of fibromyalgia. We discussed fibromyalgia as a chronic musculoskeletal kylah n syndrome characterized by widespread pain and multiple tender points. Can be associated w ith fatigue, stiffness, swelling and paresthesia s. Patient can also have depression, anx iety, sleep disturbances. Treatment consists of exercises, massage, trigger point injection s. 2. I have started her on gabapentin 300mg daily to slowly titrate up to 300mg TID. 3. We discussed asking her PCP to get a sleep study. 4. We discussed steroid injections. While her pain is mostly widespread she does have sac roiliac tenderness and I do think she will benefit from a bilateral sacroiliac steroid injec tion. This has been ordered for the near future. I am hoping with starting gabapentin her pain with localized to certain more specific areas. 5. She will follow up 2 weeks after the steroid injection. ELECTRONICALLY SIGNED BY: Yari Skinner PA-C, 09/26/2015 CC: Dr. Lynch documented in t his encounter Plan of Treatment Not on filedocumented as of this encounter Results [place] Sacroiliac Injection Right (10/23/2015 3:09 PM PDT) + + | Specimen | + + | | + + + + + | Narrative | Performed At | + + + | 10/23/2015 Bilateral Sacroiliac Joint Injection Clinical History: | [facility] | | Sacroiliitis ICD-10 M46.1 Maritza Twyla Malone presents to the | [facility] | | fluoroscopy suite for fluoroscopically guided bilateral sacroiliac | [facility] | | joint steroid injections as part of conservative management for | - IMAGING | | chronic pain with sacroiliitis. After informed consent was obtained | | | the patient laid in the prone position on the fluoroscopy table. The | | | bilateral sacroiliac joints were identified under fluoroscopic | | | guidance. The areas were prepped and draped in sterile fashion. A 25 | | | gauge 1-1/2 inch needle was inserted into each region and | | | approximately 3 mL of buffered 1% lidocaine was infused. Then a 22 | | | gauge spinal needle was inserted into the inferior joint spaces | | | under fluoroscopic guidance. Confirmation into the sacroiliac joints | | | obtained with infusion of approximately 1 mL of Omnipaque contrast | | | which showed flow within the joint spaces. Then a combination of 2 | | | mL 1% lidocaine and 2 mL of 40 mg per milliliter Kenalog was | | | infused divided between the two sides. The patient tolerated the | | | procedure well without complications. Pre- and post procedure blood | | | pressures were stable. The patient was given verbal as well as | | | written followup instructions. Prior to the start of the | | | procedure the following were performed and verified including | | | correct patient identity, correct site/side marked and visible, | | | agreement of the procedure to be done, correct patient positioning | | | and an accurate procedure consent form. Any safety precautions based | | | on clinical history and/or medications have been addressed. I | | | personally performed the procedure above. Estimated blood loss: | | | Minimal Complications: None Findings: As expected Anesthesia: | | | Local 1% Lidocaine | | + + + + + + + + | Performing | Address | City/State/Zipcode | Phone Number | | Organization | | | | + + + + + | [facility] | [address] | [place] | [phone] | | [facility] | | [address] | | | - IMAGING | | | | + + + + + [place] Sacroiliac Injection Left (10/23/2015 3:09 PM PDT) + + | Specimen | + + | | + + + + + | Narrative | Performed At | + + + | 10/23/2015 Bilateral Sacroiliac Joint Injection Clinical History: | [facility] | | Sacroiliitis ICD-10 M46.1 Maritza Malone presents to the | [facility] | | fluoroscopy suite for fluoroscopically guided bilateral sacroiliac | [facility] | | joint steroid injections as part of conservative management for | - IMAGING | | chronic pain with sacroiliitis. After informed consent was obtained | | | the patient laid in the prone position on the fluoroscopy table. The | | | bilateral sacroiliac joints were identified under fluoroscopic | | | guidance. The areas were prepped and draped in sterile fashion. A 25 | | | gauge 1-1/2 inch needle was inserted into each region and | | | approximately 3 mL of buffered 1% lidocaine was infused. Then a 22 | | | gauge spinal needle was inserted into the inferior joint spaces | | | under fluoroscopic guidance. Confirmation into the sacroiliac joints | | | obtained with infusion of approximately 1 mL of Omnipaque contrast | | | which showed flow within the joint spaces. Then a combination of 2 | | | mL 1% lidocaine and 2 mL of 40 mg per milliliter Kenalog was | | | infused divided between the two sides. The patient tolerated the | | | procedure well without complications. Pre- and post procedure blood | | | pressures were stable. The patient was given verbal as well as | | | written followup instructions. Prior to the start of the | | | procedure the following were performed and verified including | | | correct patient identity, correct site/side marked and visible, | | | agreement of the procedure to be done, correct patient positioning | | | and an accurate procedure consent form. Any safety precautions based | | | on clinical history and/or medications have been addressed. I | | | personally performed the procedure above. Estimated blood loss: | | | Minimal Complications: None Findings: As expected Anesthesia: | | | Local 1% Lidocaine | | + + + + + + + + | Performing | Address | City/State/Zipcode | Phone Number | | Organization | | | | + + + + + | [facility] [address] | [address] | [place] | [phone] | | [facility] | | [address] | | | - IMAGING | | [...]
--- OUTSIDE RECORDS SUMMARY | ~2019-10-27 | XMS | Encounter Summary ---
Demographics + + + | Address | [address] [place] [address] | | | [place] [address] | + + + | Home Phone | | + + + | Preferred Language | Unknown | + + + | Marital Status | | + + + | Confucianist Affiliation | CAT | + + + | Race | White | + + + | Ethnic Group | or | + + + Author + + + | Author | [facility] | + + + | Organization | [facility] | + + + | [...] Providers + +------+ + | Care Inspector Agricultural Commodities Name | Role | Phone | + [...] | | | | Anupama Mills | [facility] [address] | | | | | [place]ol[place] | MD [address] | [address] | | | | | a of middle | [address] | [address] [facility] | | | | | ear Otalgia | [facility], | | | | | Procedures | Rd | [address] Floor | | | | | [address] | [place], [place] | [place] | | | | | [place] | [address] | [address] | | | | | DISEASE WO | Phone: | Phone: | | | | | | [phone] | [phone] | | | | | | Fax: | Fax: | | | | | | [phone] | [phone] | +--------+--------+ + + + + Reason [...] | increased | George Rodas, | [address] | | | | | right ear | MD | [address] | | | | | pain hx of | [place] | Loop | | | | | Tympanoplast | FAMILY | Physician's | | | | | y | MEDICINE | [place], | | | | | | [address] | floor | | | | | | [address] | [place], [place] | | | | | | [place], | [address] | | | | | | [place] [address] | Phone: | | | | | | Phone: | [phone] | | | | | | [phone] | Fax: | | | | | | Fax: | [phone] | | | | | | [phone] | | +--------+--------+ + + + + [...] | | | | [address] | [place], [place] | | | | | Physician's | [address] | | | | | [place], [facility] floor | [phone] | | | | | [place], [place] | | | | | | [address] | | | | | | [phone] | | | +--------+---------+ + + + [...] 08/02/2012 3:41 PM PDTThank you for choosing [facility] Department of Otolaryngology for your health care needs. If you need to speak to an EN T physician after normal business hours, please call [phone] and ask to have the ENT ph ysician conductor/engineer paged. [employer] is a great way to contact me if you have questions in between visits. If you are n ot already signed up for [employer] there is information at the end of [...] above documentati on. Anupama Mcpherson MD PhD Forwarder Operator Otology, Neurotology & Skull Base Surgery donay [...] Department of Otolaryngology- Head and Neck Surgery [facility] . documented in th is encounter Plan of Treatment +--------+---------+ + + + | Date | Type | Specialty | Care Team | Description | +--------+---------+ + + + | 12/29/ | Office | Ophthalmology | Martha Savage MD | | | 2019 | Visit | | [address] | | | | | | [place], | | | | | | [place] [address] | | | | | | [phone] | | | | | | | | +--------+---------+ + + + documented as of this encounter Procedures + +--------+ + + + | Procedure Name | Priori | Date/Time | Associated Diagnosis | Comments | | | ty | | | | + +--------+ + + + | TX EAR MICROSCOPY | Routin | 08/04/2012 | [...] | | + +---------+ + + | [facility] DEPARTMENT OF | | | | | RADIOLOGY | | | | + +---------+ + + documented in this encounter Visit Diagnoses + + | Diagnosis | + + | Cholesteatoma of middle ear - Primary | + + | Otalgia | + + documented in this encounter"
--- OUTSIDE RECORDS SUMMARY | ~2019-10-27 | XMS | Encounter Summary ---
Demographics + + + | Address | [address] | | | [place] [address] | + + + | Home Phone | | + + + | Preferred Language | Unknown | + + + | Marital Status | | + + + | Jehovah'S Witness Affiliation | CAT | + + + | Race | White | + + + | Ethnic Group | or | + + + Author + + + | Author | [facility] | + + + | Organization | [facility] | + + + | [...] Team Providers + +------+ + | Care Cinder Dump Crane Operator Name | Role | Phone | [...] | | | | [address] | [place], [place] | | | | | Physician's | [address] | | | | | [place], [facility] floor | [phone] | | | | | [place], [place] | | | | | | [address] | | | | | | [phone] | | | +--------+---------+ + + + [...] above documentati on. Anupama Mcpherson MD PhD Milk And Cream Grader Otology, Neurotology & Skull Base Surgery ovani Bonilla MD - 12/16/2012 1:30 PM PDTOH [facility] [facility] [place] Date: 12/16/2012 HPI: Maritza [...] | | 2019 | Visit | | [address] | | | | | | [place], | | | | | | [place] [address] | | | | | | [phone] | | | | | | | | +--------+---------+ + + + documented as of this encounter Visit Diagnoses + + | Diagnosis | + + | Postop check - Primary Follow-up examination, following unspecified surgery | + + documented in this encounter"
--- OUTSIDE RECORDS SUMMARY | ~2019-10-27 | XMS | Encounter Summary ---
Demographics + + + | Address | [address] | | | [place] [address] | + + + | Home Phone | | + + + | Preferred Language | Unknown | + + + | Marital Status | | + + + | Religion Affiliation | 1041 | + + + | Race | Unknown | + + + | Ethnic Group | Unknown | + + + Author + + + | Author | [facility] | | | and Geovannyana | + + + | Organization | [facility] | | | and Geovannyana | + [...] Team Providers + +------+ + | Care Bartacker Name | Role | Phone | + [...] [facility] | | | | | | [place], | [address] | | | | | Sacroiliitis | Denis Warren MD | Yoon Nettles, | | | | | ([facility]) | [address] | [place] | | | | | Procedures | [place] | [address] | | | | | [place] INJECT SI | [place], [place] | Phone: | | | | | JOINT | [address] | [phone] | | | | | ARTHRGRPHY&/ | Phone: | Fax: | | | | | ANES/STEROID | [phone] | [phone] | | | | | W/IMAGE GA | Fax: | | | | | | | [phone] | | | | | | TRIAMCINOLON | | | | | | | E ACET INJ | | | | | | | NOS, 10 MG | | | | | | | Appt 10/22- | | | | | | | Bilateral SI | | | +--------+--------+ + + + + Encounter Details +--------+ + + + + | Date | Type | Department | Care Team | Description | +--------+ + + + + | 10/22/ | Hospital | [facility] | Brody, | Sacroiliitis, not | | 2016 | Encounter | [facility]RAY [address] | NIRANJAN [address] | elsewhere classified | | | | [address] [place] | [address] | (HCC); D[place] | | | | [place] [address] | [place] [address] | (degenerative disc | | | | [phone] | [phone] | disease), lumbar; | | | | | | Foraminal stenosis | | | | | 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 | | | | | (degenerative disc | | | | | | disease), lumbar | | | | | | Foraminal stenosis | | | | | | of lumbar region- | | | | | | mild left L5 | | | | | | Fibromyalgia | | + +--------+ + + + | [place] SACROILIAC | Routin | 10/23/2015 | Sacroiliitis, not | Results for this | | INJECTION LEFT | e | 3:09 PM | elsewhere classified | procedure are in the | | | | PDT | ([facility]) DDD | results section. | | | | | (degenerative disc | | | | | | disease), lumbar | | | | | | Foraminal stenosis | | | | | | of lumbar region- | | | | | | mild left L5 | | | | | | Fibromyalgia | | + +--------+ + + + documented in this encounter Results [place] Sacroiliac Injection Right (10/23/2015 3:09 PM PDT) + + | Specimen | + + | | + + + + + | Narrative | Performed At | + + + | 10/23/2015 Bilateral Sacroiliac Joint Injection Clinical History: | [facility] | | Sacroiliitis ICD-10 M46.1 Maritza Malone presents to the | [facility] | | fluoroscopy suite for fluoroscopically guided bilateral sacroiliac | [facility] | | joint steroid injections as part [...] ST. | [address] | [place] | [phone] | | [facility] | | [address] | | | - IMAGING | | | | + + + + + [place] Sacroiliac Injection Left (10/23/2015 3:09 PM PDT) + + | Specimen | + + | | + + + + + | Narrative | Performed At | + + + | 10/23/2015 Bilateral Sacroiliac Joint Injection Clinical History: | [facility] | | Sacroiliitis ICD-10 M46.1 Maritza Malone presents to the | [facility] | | fluoroscopy suite for fluoroscopically guided bilateral sacroiliac [facility] | | joint steroid injections as part [...] + + | Performing | Address | City/[facility] | Phone Number | | Organization | | | | + + + + + | [address] | [address] | [place] | [phone] | | [facility] | | [address] | | | - IMAGING | | [...] iohexol (OMNIPAQUE 300) 300 | Given | 10/23/19 | 2 mLs | | | | mg/mL injection 2 mL 2 mL, | | 16 3:07 | | | | | Other, ONCE, [facility] 10/23/15 at 1515, | | PM PDT | | | | | For 1 dose, Radiology | | | | | | + +--------+ +-------+------+------+ +---+---+ | | | +---+---+ + +-------+ +-------+---+---+ | lidocaine 1% injection 4 mL 4 | Given | 10/23/19 | 4 mLs | | | | mL, Other, ONCE, Thu10/23/15 at | | 16 3:09 | | | | | 1515, For 1 dose, Radiology | | PM PDT | | | | + +-------+ +-------+---+---+ +---+---+ | | | +---+---+ + +-------+ +-------+---+---+ | lidocaine buffered 1% injection | Given | 06/21/20 | 5 mLs | | | | 5 mL 5 mL, Other, ONCE, Tue | | 16 3:05 | | | | | 10/23/15 at 1515, For 1 dose, | | PM PDT | | | | | Radiology | | | | | | + +-------+ +-------+---+---+ +---+---+ | | | +---+---+ + +-------+ +-------+---+---+ | triamcinolone acetonide | Given | 10/23/19 | 80 mg | | | | (KENALOG-40) 40 mg/mL injection | | 16 3:09 | | | | | 80 mg 80 mg, Other, ONCE, Tue | | PM PDT | | | | | 10/23/15 at 1515, For 1 dose, | | | | | | | Shake well. Not for IV use., | | | | | | | Radiology | | | | | | + +-------+ +-------+---+---+ +---+---+ | | | +---+---+ documented in this encounter"
--- OUTSIDE RECORDS SUMMARY | ~2019-10-27 | XMS | Encounter Summary ---
Demographics + + + | Address | [address] | | | [place] [address] | + + + | Home Phone | | + + + | Preferred Language | Unknown | + + + | Marital Status | | + + + | Confucianism Affiliation | CAT | + + + [...] Team Providers + +------+ + | Care Russian Rubber Name | Role | Phone | + [...] | | | at [facility] | [facility] | | | | | [address] | [place] [address] | | | | | [address] | | | | | | [place], [address] [place] [address] | | | | | | [place], [place] | | | | | | [address] | | | | | | [phone] | | | +--------+ + + + [...] | | | | | Katherine Soto [place], | | | | | | [place] [address] | | | | | | [phone] | | | | | | | [...] view image for the detailed interpretation from [employer] results. | CARDIOLOGY | + + + + + | Procedure Note | + + | Interface, Cardiology Results - 11/24/2012 12:00 AM PDT Please click on view image | | for the detailed interpretation from [employer] results. | + + + + + + + | Performing | Address | City/State/Zipcode | Phone Number | | Organization | | | | + + + + + | [facility] | [address] | [place], [place] | | | CARDIOLOGY | [address] | [address] | | + + + + + documented in this encounter Visit Diagnoses Not on filedocumented in this encounter"
--- OUTSIDE RECORDS SUMMARY | ~2019-10-27 | XMS | Encounter Summary ---
Demographics + + + | Address | [address] | | | [place] [address] | + + + | Home Phone [...] Team Providers + +------+ + | Care Miter Cutter Name | Role | Phone | + [...] | | [facility] at | J, INFORMATION SECURITY | | | | | [facility] | | | | | | [address] | | | | [address] | | | | | | Mailcode: [id number] | | | | | | [address] | | | | | | [address], [place] | | | | | | [address] | | | | | | [phone] | | | +--------+ + + + [...] | | | | | Katherine Soto [place], | | | | | | [place] [address] | | | | | | [phone] | | | | | | | | +--------+---------+ + + + documented as of this encounter Visit Diagnoses Not on filedocumented in this encounter"
[~2019-10-27 11:54] MED LIST changes: +LORAZEPAM2 MG PO
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
[2019-10-27] MEDS ORDERED: FAMOTIDINE40 MG PO (12:12)
[2019-10-27] MEDS ORDERED: SUCRALFATE1 GM PO (12:12)
[2019-10-27] MEDS ORDERED: ONDANSETRON ODT8 MG PO (15:14)
== END 2019-10-27 15:50 | disposition home or self-care (01) ==
LOC: ED 11:54
DX: U07.1 COVID-19 (principal); J40 Bronchitis, not specified as acute or chronic; R10.13 Epigastric pain; K21.9 Gastro-esophageal reflux disease without esophagitis; Z88.8 Allergy status to other drugs, medicaments and biological substances; Z91.048 Other nonmedicinal substance allergy status; Z91.040 Latex allergy status; Z79.899 Other long term (current) drug therapy
CPT/HCPCS: 71045; 99284-25

== ENCOUNTER 2019-12-26 06:43 | Day surgery (SDC) | payer BC, MEDICARE ==
[~2019-12-26] VITALS: Ht 152.4 cm; Wt 62.6 kg
[~2019-12-26 06:43] MED LIST changes: +FAMOTIDINE40 MG PO; +ONDANSETRON ODT8 MG PO; +SUCRALFATE1 GM PO
[2019-12-26] MEDS ORDERED: ADULT LOW DOSE81 MG PO (06:57)
--- NOTE | 2019-12-26 08:14 | NUR ---
12/26/19 0814 Thelma Tejeda 0756 PT ARRIVED IN PACU SLEEPY WITH NO C/O'S. ABD SOFT AND PASSING FLATUS. 0805 DR AT BEDSIDE TALKING WITH PT. 0814 RESTING. REU.
--- NOTE | 2019-12-27 18:28 | OR ---
[facility] [address], [place] [address] Signed DATE OF OPERATION: 12/26/2019 SURGEON: Milena Burgos MD PREOPERATIVE DIAGNOSES: 1. Persistent left lower abdominal pain. 2. Recovered coronavirus disease illness months ago. POSTOPERATIVE DIAGNOSES: 1. Sigmoid diverticulosis. 2. Tattoo dye noted from prior polypectomy. PROCEDURE: Total colonoscopy to cecum. ANESTHESIA: Intravenous sedation, fentanyl 150 mcg and Versed 5 mg. INDICATION: This 59-year-old woman is a patient of Dr. Lynch, who has had persistent left lower abdominal pain. She underwent colonoscopy in 2018. She says elsewhere, but she does not remember quite where. She has had no blood per rectum. She has no family history of colon cancer. She did recover from COVID illness in the past few months. She is COVID free at this time based on preop studies. She is admitted to undergo colonoscopy on the basis of her persistent left lower abdominal pain, understands the risks of bleeding, infection, perforation. FINDINGS: The prep was excellent. Complete colonoscopy was undertaken of the cecum without problem. She had numerous diverticula of the sigmoid colon, but no sign of polyps or colitis. DESCRIPTION OF PROCEDURE: The patient was brought to the endoscopy suite and placed in lateral decubitus position given intravenous sedation to the point of slurred speech and nystagmus. Digital rectal examination was normal. An Olympus video colonoscope was passed in the rectum and manipulated throughout the colon noting some Endo Johnny tattoo dye areas in a 3 position application. There was no sign of polyps or other abnormality in that site. I am uncertain exactly where that Electronically Signed By: MILENA BURGOS MD 12/27/19 1828 PATIENT NAME: HUMPHREY COLON OPERATIVE REPORT DATE OF : 62 REPORT #: [id number] PHYSICIAN: MILENA BURGOS MD PCP: ELAINA LYNCH MD REPORT IS CONFIDENTIAL AND NOT TO BE RELEASED WITHOUT AUTHORIZATION [facility] [address], [place] [address] Signed was, but I believe it to be in the splenic flexure area. The scope was ultimately advanced to the cecum. The ileocecal valve and appendiceal orifice were noted to be normal. Scope was withdrawn. Careful examination throughout showed no sign of abnormality other than the diverticulosis of the left colon and sigmoid. Retroflexed view of the rectum was normal. Scope was removed. The patient was taken to the recovery room in good condition with clean diagnosis, diverticulosis. PLAN: Recommend continued use of high-fiber diet. Increase fluids. If persistent symptoms, she will let me know. It is noted that she did have a bladder suspension surgery in the past and the relationship to that prior pelvic surgery is uncertain. MD ARLEN Obrien/CHARIS /[id number] cc: Elaina Lynch MD Copies: ELAINA LYNCH MD ~ Electronically Signed By: MILENA BURGOS MD 12/27/19 1828 PATIENT NAME: MALVIN HUMPHREY VERNON OPERATIVE REPORT DATE OF : 62 REPORT #: [id number] PHYSICIAN: MILENA BURGOS MD PCP: ELAINA LYNCH MD REPORT IS CONFIDENTIAL AND NOT TO BE RELEASED WITHOUT AUTHORIZATION
== END 2019-12-26 08:42 | disposition home or self-care (01) ==
LOC: OPS 06:43 → DS 06:43 → OPS 06:45
PROVIDERS: Surgery
PROC: 0DJD8ZZ Inspection of Lower Intestinal Tract, Via Natural or Artificial Opening Endoscopic (ICD-10-PCS; principal; 2019-12-26 06:45)
DX: K57.30 Diverticulosis of large intestine without perforation or abscess without bleeding (principal); F32.9 Major depressive disorder, single episode, unspecified; K21.9 Gastro-esophageal reflux disease without esophagitis; Z86.19 Personal history of other infectious and parasitic diseases; Z91.040 Latex allergy status; Z79.899 Other long term (current) drug therapy; Z86.010 Personal history of colon polyps
CPT/HCPCS: 99153; G0500; J2250; J3010; J7121

== ENCOUNTER 2020-10-29 21:19 | Emergency (ER) | payer BC, MEDICARE ==
[~2020-10-29] VITALS: Ht 152.4 cm; Wt 62.6 kg
[~2020-10-29 21:19] MED LIST changes: +ADULT LOW DOSE81 MG PO
--- OUTSIDE RECORDS SUMMARY | 2020-10-29 21:22 | XMS ---
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 Rashawn VISIT COUNT (12 MO.) [address] [facility] [address] [facility] [place] TOTAL 1 NOTE: Visits indicate total known visits. ED/UCC VISIT TRACKING (12 MO.) 10/29/2020 21:20 [place] TYPE: Emergency COMPLAINT: - ABD PAIN INPATIENT VISIT TRACKING (12 MO.) No inpatient visits to display in this time frame [email or web address]
[2020-10-29] MEDS ORDERED: LORAZEPAM1 MG PO (21:44)
[2020-10-29] MEDS ORDERED: ESCITALOPRAM OX20 MG PO (21:45)
[2020-10-30] MEDS ORDERED: HYDROCODON-ACE1 EA10 PO (01:35)
[2020-10-30] MEDS ORDERED: CEPHALEXIN500 MG PO (01:35)
== END 2020-10-30 02:00 | disposition home or self-care (01) ==
LOC: ED 21:19
DX: N39.0 Urinary tract infection, site not specified (principal); K21.9 Gastro-esophageal reflux disease without esophagitis; Z88.8 Allergy status to other drugs, medicaments and biological substances; Z91.040 Latex allergy status; Z91.048 Other nonmedicinal substance allergy status; Z79.899 Other long term (current) drug therapy
CPT/HCPCS: 74176; 96374; 96375; 99284-25; J1170; J1885; J2405; J7030

== ENCOUNTER 2023-01-11 22:37 | Emergency (ER) | payer MEDICARE ==
[~2023-01-11] VITALS: Ht 152.4 cm; Wt 68.0 kg
[~2023-01-11 22:37] MED LIST changes: +CEPHALEXIN500 MG PO; +ESCITALOPRAM OX20 MG PO; +HYDROCODON-ACE1 EA10 PO; +LORAZEPAM1 MG PO
[2023-01-11] MEDS ORDERED: MAXITROL EYE DRO5 ML OPTH (22:57)
[2023-01-11 23:19] VITALS: BP 141/78
== END 2023-01-11 23:20 | disposition home or self-care (01) ==
LOC: ED 22:37
DX: S05.02XA Injury of conjunctiva and corneal abrasion without foreign body, left eye, initial encounter (principal); X58.XXXA Exposure to other specified factors, initial encounter

== ENCOUNTER 2024-10-11 10:21 | Emergency (ER) | payer MEDICARE ==
[~2024-10-11] VITALS: Ht 152.4 cm; Wt 67.5 kg
[~2024-10-11 10:21] MED LIST changes: +ATIVAN1 MG PO; +BENADRYL ALLERG25 MG PO; +CELEBREX200 MG PO; +CELEBREX50 MG; +CITALOPRAM HBR20 MG PO; +MAXITROL EYE DRO5 ML OPTH; +MELOXICAM15 MG PO; +OFLOXACIN5 M1 OP
[2024-10-11] MEDS ORDERED: GABAPENTIN300 MG PO (10:41)
[2024-10-11 10:53] LABS: BASOPHILS 0.2 % (0.1-1.2); EOSINOPHILS 1.8 % (0.7-5.8); HEMATOCRIT 42.8 % (34.1-44.9); HEMOGLOBIN 14.3 g/dL (11.2-15.7); LYMPHOCYTES 21.1 % (19.3-51.7); MCHC 33.4 g/dL (32.2-35.5); MCV 89.9 fL (79.4-94.8); MONOCYTES 6.4 % (4.7-12.5); NEUTROPHILS 70.2 % (34.0-71.1); PLATELET COUNT 191 K/uL (182-369); RBC 4.76 M/uL (3.93-5.22)
[2024-10-11] MEDS ORDERED: SODIUM CHLORIDE 0.9% 1,000 ML IV PRN (11:00)
[2024-10-11] MEDS ORDERED: ondansetron HCL 4 MG/2 ML VIAL IV ONE ×2 (11:00→11:45)
[2024-10-11] MEDS ORDERED: HYDROmorphone HCL 1 MG/ML SYR IV ONE (11:00)
[2024-10-11 11:02] LABS: ALBUMIN 3.8 g/dL (3.4-5.0); ALBUMIN/GLOBULIN RATIO 1.12 (1.1-2.4); ANION GAP 12.9 (7-21); BILIRUBIN, TOTAL 0.6 mg/dL (0.2-1.0); BUN/CREATININE RATIO 16.9 (6.0-28.6); CALCIUM 9.2 mg/dL (8.5-10.1); CREATININE, SERUM 0.71 mg/dL (0.55-1.02); POTASSIUM 3.9 mmol/L (3.5-5.1); PROTEIN, TOTAL 7.2 g/dL (6.4-8.2)
[2024-10-11 14:31] VITALS: BP 102/57
== END 2024-10-11 14:31 | disposition home or self-care (01) ==
LOC: ED 10:21
PROVIDERS: Emergency Medicine
DX: R10.10 Upper abdominal pain, unspecified (principal); Z88.8 Allergy status to other drugs, medicaments and biological substances; Z88.5 Allergy status to narcotic agent; Z91.041 Radiographic dye allergy status; Z91.040 Latex allergy status; Z79.899 Other long term (current) drug therapy
CPT/HCPCS: 36415; 74176; 80053; 83605; 83690; 85025; 96361; 96374; 96375; 96376; 99284-25; J1171; J2405; J7030